=== PATIENT | male | born 1960 | race Caucasian/White ===

== ENCOUNTER 2016-05-23 14:46 | Emergency (ER) | payer OTHER ==
[~2016-05-23] VITALS: Ht 182.9 cm; Wt 130.1 kg
[~2016-05-23 14:46] MED LIST: ASPI81TA28 PO; CYCL10TA6 PO; CZR25 PO; EZET10TA63 PO; FLV1 PO; ISOS30TA3 PO; LSX20 PO; MAGN400T6 PO; MULT-506 PO; NTRGSL/4 UT; ROSU40TA PO; TRAM-10 PO
[2016-05-23 14:49] VITALS: TEMP 36.5; Ht 182.9 cm; Wt 130.1 kg
[2016-05-23 15:35] VITALS: O2SAT 97
[2016-05-23] MEDS ORDERED: METO50TA16 PO ×2 (15:42→17:11)
[2016-05-23] MEDS ORDERED: OMEG10007 PO (15:42)
[2016-05-23 15:47] LABS: BASO % 0.3 %; BASO ABS # 0.03 K/uL (0-0.2); COMPLETE YES; EOS % 1.7 %; HEMATOCRIT 42.8 % (42-52); IG% 0.2 %; LYMPH % 26.1 %; LYMPH ABS # 2.31 K/uL (1.2-3.4); MEAN CELL VOLUME 88.4 fL (80-100); MEAN CORPUSCULAR HEMOGLOBIN 31.2 pg (25-34); MEAN CORPUSCULAR HGB CONC 35.3 g/dl (32-36); MEAN PLATELET VOLUME 9.4 fL (7.4-10.4); MONO % 9.7 %; PLATELET COUNT 218 K/uL (130-400); RED BLOOD COUNT 4.84 M/uL (4.7-6.1); WHITE BLOOD COUNT 8.84 K/uL (4.8-10.8)
--- NOTE | 2016-05-23 15:51 | DIAGNOSTIC IMAGING REPORT ---
SINGLE VIEW CHEST CLINICAL HISTORY: Fever. Sepsis. FINDINGS: An AP, portable, upright chest radiograph is compared to study dated 09/28/2015 and correlated with chest CT dated 10/24/2010. The examination is degraded by portable technique and patient rotation. The patient is status post midline sternotomy and cardiac valve surgery. A 2-lead cardiac pacemaker is unchanged in position and partially obscures the left upper chest. The heart is enlarged and there is atherosclerotic calcification of the thoracic aorta. The pulmonary vasculature is noncongested. Chronic interstitial thickening is similar to previous. Foci of bibasilar atelectasis are identified. No airspace consolidation or pleural effusion is seen. No pneumothorax is identified. The skeletal structures are osteopenic. The bony thorax is grossly intact. IMPRESSION: 1. Cardiomegaly and cardiac pacemaker. There is no radiographic evidence of congestive failure. 2. No airspace consolidation or pleural effusion is seen. Electronically signed by: Tristian Briseno M.D. 05/23/2016 3:49 PM Dictated Date/Time: 05/23/2016 3:45 PM
[2016-05-23 15:59] LABS: PROTHROMBIN TIME (PATIENT) 10.9 SECONDS (9.0-12.0)
[2016-05-23 16:07] LABS: ALT/SGPT 43 U/L (12-78); BLOOD UREA NITROGEN 21 mg/dl (7-18); BUN/CREATININE RATIO 16.3 (10-20); CALCIUM 9.2 mg/dl (8.5-10.1); CARBON DIOXIDE 25 mmol/L (21-32); CHLORIDE 104 mmol/L (98-107); GLUCOSE 88 mg/dl (70-99); POTASSIUM 3.9 mmol/L (3.5-5.1); SODIUM 139 mmol/L (136-145)
[2016-05-23 16:17] LABS: ALKALINE PHOSPHATASE 77 U/L (45-117); AST/SGOT 23 U/L (15-37)
[2016-05-23] MEDS ORDERED: ULT50 PO (16:26)
[2016-05-23] MEDS ORDERED: EZET10TA66 PO (16:26)
[2016-05-23] MEDS ORDERED: ATOR-26 PO (16:27)
[2016-05-23] MEDS ORDERED: FURO-85 PO (16:28)
--- NOTE | 2016-05-23 17:52 | EMERGENCY ROOM VISIT NOTE ---
History Report prepared by Yaa: Orlando Chapman Under the Supervision of: Dr. Flavio Tucker D.O. First contact with patient: 15:05 Chief Complaint: IRREGULAR HEARTBEAT Stated Complaint: HEART RHYTHM/DISCOMFORT Nursing Triage Summary: "I have a pacemaker and I just don't feel good. I am having a little discomfort/tightness in the center of the chest." Per pt. Pain started at approx 10-1030am. Did not take anything History of Present Illness The patient is a 56 year old male with a history of CAD who presents to the Emergency Room with complaints of persistent chest discomfort since approximately [id number]. The patient emphasizes that he is not having chest pain , but rather a discomfort. He overall "doesn't feel right" today, and also has a headache. The patient denies any fevers. The patient's legs swell at baseline. He follows up with Dr. Luna, Catheter Builder. The patient has had a pacemaker since June. He had the pacemaker placed at [facility] for an AV block. The patient had a CABG x 1 in 2001. The patient has also been diagnosed with atrial flutter in the past. Source of History: patient Onset: [id number] Position: chest Quality: other (discomfort) Timing: other (persistent) Associated Symptoms: No fevers Review of Systems See HPI for pertinent positives & negatives. A total of 10 systems reviewed and were otherwise negative. Past Medical & Surgical Medical Problems: (1) Atrial flutter (2) Coronary artery disease (3) DVT (deep venous thrombosis) (4) Hx of atrial flutter (5) Hx of pulmonary embolus (6) Renal cell carcinoma Surgical Problems: (1) History of mitral valve repair (2) S/P ablation of atrial flutter (3) S/P CABG x 1 (4) Stented coronary artery Family History Cancer FH: ischemic heart disease Hypertension Social History Smoking Status: Never Smoker Alcohol Use: occasionally Marital Status: Housing Status: lives with family Occupation Status: employed Current/Historical Medications Scheduled Aspirin (Aspirin Ec), 81 MG PO DAILY Atorvastatin (Lipitor), 80 MG PO DAILY Ezetimibe (Ezetimibe), 10 MG PO HS Fish Oil (Dan[place]-3), 1 CAP PO BID Folic Acid (Folic Acid), 1 MG PO DAILY Furosemide (Lasix), 20 MG PO 5XWK Isosorbide Mononitrate Ext Rel (Imdur Ext Rel), 30 MG PO QAM Losartan Potassium (Losartan Potassium), 25 MG PO DAILY Magnesium Oxide (Mag-Ox), 400 MG PO BID Metoprolol Tartrate (Lopressor) (Lopressor), 25 MG PO QPM Metoprolol Tartrate (Lopressor) (Lopressor), 50 MG PO QAM Multivitamin (Multivitamin), 1 TAB PO DAILY Scheduled PRN Cyclobenzaprine Hcl (Flexeril), 10 MG PO HS PRN for Muscle Spasms Nitroglycerin (Nitrostat), 0.4 MG UT UD PRN for Chest Pain Tramadol HCl (Tramadol HCl), 50 MG PO Q8 PRN for Pain Allergies Coded Allergies: No Known Allergies (Verified , 07/01/15) Physical Exam Vital Signs Date Time Temp Pulse Resp B/P Pulse Ox O2 Delivery O2 Flow Rate FiO2 05/23/16 17:00 79 16 131/73 96 Room Air 05/23/16 15:35 97 Room Air 05/23/16 15:24 97 Room Air 05/23/16 15:07 83 05/23/16 14:49 36.5 85 18 156/102 97 Room Air Physical Exam CONSTITUTIONAL/VITAL SIGNS: Reviewed / noted above. GENERAL: Non-toxic in appearance. INTEGUMENTARY: Warm, dry, and Snyder. HEAD: Normocephalic. EYES: without scleral icterus or trauma. ENT/OROPHARYNX: clear and moist. LYMPHADENOPATHY/NECK: Is supple without lymphadenopathy or meningismus. RESPIRATORY: Lungs clear and equal. CARDIOVASCULAR: Regular rate and rhythm. GI/ABDOMEN: Soft and nontender. No organomegaly or pulsatile mass. No rebound or guarding. Normal bowel sounds. EXTREMITIES: Warm and well perfused. BACK: No CVA tenderness. NEUROLOGICAL: Intact without focal deficits. PSYCHIATRIC: normal affect. MUSCULOSKELETAL: Normally developed with good muscle tone. Medical Decision & Procedures ER Provider Diagnostic Interpretation: X ray results and stated below per my interpretation and radiology interpretation. SINGLE VIEW CHEST CLINICAL HISTORY: Fever. Sepsis. FINDINGS: An AP, portable, upright chest radiograph is compared to study dated 09/28/2015 and correlated with chest CT dated 10/24/2010. The examination is degraded by portable technique and patient rotation. The patient is status post midline sternotomy and cardiac valve surgery. A 2-lead cardiac pacemaker is unchanged in position and partially obscures the left upper chest. The heart is enlarged and there is atherosclerotic calcification of the thoracic aorta. The pulmonary vasculature is noncongested. Chronic interstitial thickening is similar to previous. Foci of bibasilar atelectasis are identified. No airspace consolidation or pleural effusion is seen. No pneumothorax is identified. The skeletal structures are osteopenic. The bony thorax is grossly intact. IMPRESSION: 1. Cardiomegaly and cardiac pacemaker. There is no radiographic evidence of congestive failure. 2. No airspace consolidation or pleural effusion is seen. Electronically signed by: Tristian Briseno M.D. 05/23/2016 3:49 PM Dictated Date/Time: 05/23/2016 3:45 PM Laboratory Results 05/23/16 15:35 Red Blood Count 4.84, Mean Corpuscular Volume 88.4, Mean Corpuscular Hemoglobin 31.2, Mean Corpuscular Hemoglobin Concent 35.3, Mean Platelet Volume 9.4, Neutrophils (%) (Auto) 62.0, Lymphocytes (%) (Auto) 26.1, Monocytes (%) (Auto) 9.7, Eosinophils (%) (Auto) 1.7, Basophils (%) (Auto) 0.3, Neutrophils # (Auto) 5.47, Lymphocytes # (Auto) 2.31, Monocytes # (Auto) 0.86, Eosinophils # (Auto) 0.15, Basophils # (Auto) 0.03 05/23/16 15:35 Test 05/23/16 15:35 White Blood Count 8.84 K/uL (4.8-10.8) Red Blood Count 4.84 M/uL (4.7-6.1) Hemoglobin 15.1 g/dL (14.0-18.0) Hematocrit 42.8 % (42-52) Mean Corpuscular Volume 88.4 fL (80-100) Mean Corpuscular Hemoglobin 31.2 pg (25-34) Mean Corpuscular Hemoglobin Concent 35.3 g/dl (32-36) Platelet Count 218 K/uL (130-400) Mean Platelet Volume 9.4 fL (7.4-10.4) Neutrophils (%) (Auto) 62.0 % Lymphocytes (%) (Auto) 26.1 % Monocytes (%) (Auto) 9.7 % Eosinophils (%) (Auto) 1.7 % Basophils (%) (Auto) 0.3 % Neutrophils # (Auto) 5.47 K/uL (1.4-6.5) Lymphocytes # (Auto) 2.31 K/uL (1.2-3.4) Monocytes # (Auto) 0.86 K/uL (0.11-0.59) Eosinophils # (Auto) 0.15 K/uL (0-0.5) Basophils # (Auto) 0.03 K/uL (0-0.2) RDW Standard Deviation 41.7 fL (36.4-46.3) RDW Coefficient of Variation 13.0 % (11.5-14.5) Immature Granulocyte % (Auto) 0.2 % Immature Granulocyte # (Auto) 0.02 K/uL (0.00-0.02) Prothrombin Time 10.9 SECONDS (9.0-12.0) Prothromb Time International Ratio 1.0 (0.9-1.1) Activated Partial Thromboplast Time 24.9 SECONDS (21.0-31.0) Partial Thromboplastin Ratio 1.0 Anion Gap 10.0 mmol/L (3-11) Est Creatinine Clear Calc Drug Dose 87.4 ml/min Estimated GFR () 70.2 Estimated GFR (Non- 60.6 BUN/Creatinine Ratio 16.3 (10-20) Calcium Level 9.2 mg/dl (8.5-10.1) Total Bilirubin 0.7 mg/dl (0.2-1) Direct Bilirubin 0.2 mg/dl (0-0.2) Aspartate Amino Transf (AST/SGOT) 23 U/L (15-37) Alanine Aminotransferase (ALT/SGPT) 43 U/L (12-78) Alkaline Phosphatase 77 U/L (45-117) Troponin I < 0.015 ng/ml (0-0.045) Total Protein 7.6 gm/dl (6.4-8.2) Albumin 3.6 gm/dl (3.4-5.0) Thyroid Stimulating Hormone (TSH) 1.180 uIu/ml (0.300-4.500) Laboratory results as stated above per my review. ECG Indication: chest pain Rate (beats per minute): 85 Rhythm: sinus rhythm Findings: 1st degree AV block, no acute ischemic change, no ectopy ED Course 1507: Previous medical records were reviewed. The patient was evaluated in room B10. A complete history and physical examination was performed. 1755: Reassessed the patient. Discussed the findings with him. He verbalized understanding and agreement. The patient is ready for discharge. Medical Decision the differential was considered includes acute myocardial infarction, acute coronary syndrome, myocarditis, pericarditis, pericardial effusions /tamponade, esophageal perforation, thoracic aortic dissection, pulmonary embolism, pneumonia, pneumothorax, pancreatitis, shingles, acute cholecystitis, perforated abdominal viscus. This is a 56-year-old male who presents to the ED with a chief complaint of the above. Physical exam reveals stable vital signs. Exam is otherwise unremarkable. EKG shows a sinus rhythm. No acute injury. Chest x-ray is negative for acute disease. Troponin is negative. TSH, complete metabolic panel and CBC are unremarkable. The patient was told results. He is felt to be stable for discharge and outpatient follow up. Impression Primary Impression: Precordial chest pain Additional Impression: Palpitations Scribe Attestation The scribe's documentation has been prepared under my direction and personally reviewed by me in its entirety. I confirm that the note above accurately reflects all work, treatment, procedures, and medical decision making performed by me. Departure Information Dispostion Home / Self-Care Referrals No Doctor, Assigned (PCP) Forms HOME CARE DOCUMENTATION FORM, IMPORTANT VISIT INFORMATION Patient Instructions My [facility] Additional Instructions Follow-up with your doctor for further care and evaluation in 1-2 days. Return to the emergency department for worsening or new symptoms or any concerns. You have been examined and treated today on an emergency basis only. This is not a substitute for, or an effort to provide, complete comprehensive medical care. It is impossible to recognize and treat all injuries or illnesses in a single emergency department visit. It is therefore important that you follow up closely with your doctor. Call as soon as possible for an appointment. Problem Qualifiers
[2016-05-23 18:11] VITALS: BP 122/72; PULSE 69; O2SAT 96
== END 2016-05-23 18:13 | disposition home or self-care (01) ==
LOC: C.EDB 14:47
DX: R07.2 Precordial pain (principal); R00.2 Palpitations; I44.0 Atrioventricular block, first degree; I25.10 Atherosclerotic heart disease of native coronary artery without angina pectoris; I48.92 Unspecified atrial flutter; Z86.711 Personal history of pulmonary embolism; Z86.718 Personal history of other venous thrombosis and embolism; Z85.528 Personal history of other malignant neoplasm of kidney; Z95.1 Presence of aortocoronary bypass graft; Z79.82 Long term (current) use of aspirin; Z79.899 Other long term (current) drug therapy; Z80.9 Family history of malignant neoplasm, unspecified; Z82.49 Family history of ischemic heart disease and other diseases of the circulatory system

== ENCOUNTER → 2017-02-07 | Outpatient (CLI) | payer OTHER ==
[~2017-02-07] MED LIST changes: +ATOR-26 PO; -EZET10TA63 PO; +EZET10TA66 PO; +FURO-85 PO; -LSX20 PO; +METO50TA16 PO; +OMEG10007 PO; -ROSU40TA PO; -TRAM-10 PO; +ULT50 PO
--- NOTE | 2017-02-07 15:41 | DIAGNOSTIC IMAGING REPORT ---
MRI OF THE LUMBAR SPINE WITHOUT IV CONTRAST CLINICAL HISTORY: Chronic low back pain. COMPARISON STUDY: MRI of the lumbar spine dated 09/28/2015. TECHNIQUE: MRI of the lumbar spine is performed utilizing various T1 and T2-weighted sequences in the axial and sagittal planes. IV contrast was not administered for this examination. FINDINGS: Lumbar spine: Vertebral body height and alignment are maintained throughout the lumbar spine. Marrow signal intensity is heterogeneous. There is straightening of the lumbar lordosis. The transverse and spinous processes are intact as visualized. There is no evidence of spondylolysis. No destructive bony lesion is seen. Anterior osteophytes are seen throughout. Advanced degenerative endplate sclerosis is noted at L3-L4. Additional chronic endplate changes are seen at most lumbar levels. Minimal degenerative endplate edema is noted at L2-L3. Intervertebral discs: Degenerative disc desiccation and loss of height is are seen throughout the lumbar spine. Loss of height is severe at L2-L3 and L3-L4. Spinal cord: The visualized spinal cord is normal in morphology and signal intensity. The conus medullaris terminates at the level of L1. Central canal: There is diffuse narrowing of the central canal, likely on a congenital basis. L1-L2: Facet arthropathy causes mild right neural foraminal stenosis. The central canal is patent. L2-L3: There is a small posterior disc bulge with annular fissure. In conjunction with hypertrophy of the ligamentum flavum, there is minimal acquired compromise of the central canal at this level. The minimum AP canal diameter measures 5.5 mm. This likely abuts the transiting nerve roots. The neural foramina are patent. L3-L4: There is a posterior disc bulge with annular fissure. There is moderate central canal stenosis at this level with a minimum AP diameter of 4.5 mm. This is largely on a congenital basis. The disc bulge is eccentric to the left and obliterates the left subarticular space. The disc likely impinges on the exiting bilateral L3 nerve roots as well as the transiting bilateral L4 nerve roots. There is tethering of the nerve roots of the cauda equina at this level. Facet arthropathy causes moderate left neural foraminal stenosis. L4-L5: There is minimal disc bulge. There is no significant acquired compromise of the central canal. There is congenital central canal narrowing at this level with a minimum AP diameter of 6.5 mm. There is mild bilateral subarticular stenosis. Facet arthropathy causes minimal bilateral neural foraminal stenosis. L5-S1: There is a small posterior disc bulge. There is no significant acquired compromise of the central canal. There is mild bilateral subarticular stenosis. Facet arthropathy causes minimal bilateral neural foraminal stenosis. Sacrum: The visualized sacrum is normal in morphology and signal intensity. Soft tissues: There is mild fatty atrophy of the paraspinous musculature. The partially imaged retroperitoneal structures are grossly normal but incomplete assessed. IMPRESSION: 1. Multilevel degenerative disc disease as above with chronic multilevel endplate change. This is greatest at L3-L4. 2. There is diffuse narrowing of the central canal, likely largely on a congenital basis. 3. There is multilevel acquired compromise of the central canal as detailed above. This is greatest at L3-L4. See discussion for detailed level by level analysis. Dictated: 02/07/2017 3:19 PM Transcribed: 02/07/2017 3:41 PM [facility] Electronically signed by: Tristian Briseno M.D. 02/07/2017 3:58 PM Dictated Date/Time: 02/07/2017 3:19 PM
== END | disposition home or self-care (01) ==
LOC: C.MRI 14:22
PROVIDERS: ATTEND Orthopaedic Surgery
DX: M51.17 Intervertebral disc disorders with radiculopathy, lumbosacral region (principal)

== ENCOUNTER 2017-04-10 14:00 | Observation (INO) | payer OTHER ==
[~2017-04-10] VITALS: Ht 182.9 cm; Wt 129.1 kg
[2017-04-10] MEDS ORDERED: ASPIRIN 81 MG CHEW PO STA (14:22)
[2017-04-10] MEDS ORDERED: DIGO30TA PO (14:22)
[2017-04-10] MEDS ORDERED: METO25TA56 PO (14:26)
[2017-04-10] MEDS ORDERED: TZCSR120 PO (14:26)
[2017-04-10] MEDS ORDERED: OXYC-57 PO (14:26)
[2017-04-10] MEDS ORDERED: APIX1TAB3 PO (14:26)
[2017-04-10] MEDS ORDERED: NITROGLYCERIN 0.4 MG SL PER TAB CHARGE SL PRN ×2 (14:30→17:00)
--- NOTE | 2017-04-10 14:42 | DIAGNOSTIC IMAGING REPORT ---
CHEST ONE VIEW PORTABLE CLINICAL HISTORY: Chest pain. COMPARISON STUDY: Chest radiograph May 23, 2016. FINDINGS: There are are median sternotomy wires and a prosthetic mitral valve. Cardiomegaly is unchanged. There is no evidence of pulmonary edema. No consolidation is evident. No pneumothorax or pleural effusion is noted. The appearance of the chest is unchanged. Minimal left basilar opacity is suggestive of atelectasis. IMPRESSION: No acute cardiopulmonary findings. No change in appearance of the chest. Electronically signed by: William Her M.D. 04/10/2017 2:41 PM Dictated Date/Time: 04/10/2017 2:40 PM
[2017-04-10 14:45] LABS: BASO % 0.4 %; BASO ABS # 0.04 K/uL (0-0.2); EOS % 3.6 %; HEMATOCRIT 44.6 % (42-52); HEMOGLOBIN 15.8 g/dL (14.0-18.0); IG# 0.03 K/uL (0.00-0.02); LYMPH % 30.4 %; LYMPH ABS # 3.35 K/uL (1.2-3.4); MEAN CELL VOLUME 89.2 fL (80-100); MEAN CORPUSCULAR HEMOGLOBIN 31.6 pg (25-34); MEAN CORPUSCULAR HGB CONC 35.4 g/dl (32-36); MEAN PLATELET VOLUME 9.5 fL (7.4-10.4); MONO % 8.5 %; MONO ABS # 0.94 K/uL (0.11-0.59); NEUT % 56.8 %; NEUT ABS # 6.26 K/uL (1.4-6.5); PLATELET COUNT 239 K/uL (130-400); RED CELL DISTRIBUTION WIDTH CV 13.5 % (11.5-14.5); WHITE BLOOD COUNT 11.02 K/uL (4.8-10.8)
[2017-04-10 14:56] LABS: BLOOD UREA NITROGEN 24 mg/dl (7-18); CALCIUM 9.3 mg/dl (8.5-10.1); CARBON DIOXIDE 28 mmol/L (21-32); GLUCOSE 99 mg/dl (70-99); POTASSIUM 3.7 mmol/L (3.5-5.1); SODIUM 134 mmol/L (136-145)
[2017-04-10 15:01] LABS: CKMB 2.3 ng/ml (0.5-3.6)
[2017-04-10] MEDS ORDERED: ONDANSETRON INJ 2 MG/ML 2 ML VIAL IV PRN (17:00)
[2017-04-10] MEDS ORDERED: ACETAMINOPHEN 325 MG TAB PO PRN (17:00)
[2017-04-10] MEDS ORDERED: OXYCODONE/ACETAMINOPHEN 5-325 TAB PO PRN (17:30)
[2017-04-10] MEDS ORDERED: CYCLOBENZAPRINE HCL 10 MG TAB PO PRN (17:30)
--- NOTE | 2017-04-10 17:30 | EMERGENCY ROOM VISIT NOTE ---
History Report prepared by Yaa: Amadeo Duran Under the Supervision of: Dr. Peter Martinez D.O. First contact with patient: 14:10 Chief Complaint: CARDIAC ASSESSMENT Stated Complaint: CHEST DISCOMFORT, HAS PACEMAKER Nursing Triage Summary: Substernal chest discomfort 2/10 for 1hour. " feels like my rythm is not normal. I have a pacemaker for heart block, and my heart feels like it is skipping beats." History of Present Illness The patient is a 57 year old male who presents to the Emergency Room with complaints of intermittent central chest discomfort that began an 1 hour ago. Patient rates the pain a 2/10 in severity. Patient admits to having a pacemaker due to AV block. He has a history of a mitral valve replacement, cardiac bypass , and cardiac ablation for A-flutter. He also complains of a headache, fatigue, and heart palpitations. Patient describes the palpitations as "feeling like my heart ain't beating right". His palpitations have been intermittent over the past hour associated with his chest pain. He denies shortness of breath, arm pain, jaw pain, cough, abdominal pain, nausea, vomiting, or diarrhea. The patient notes that he was started on Digoxin two weeks ago, and is starting Elquis soon. Source of History: patient Onset: 1 hour ago Position: chest (central) Symptom Intensity: 2/10 Timing: intermittent Associated Symptoms: + headache, + fatigue, No cough, No SOB, No nausea, No vomiting, No abdominal pain, No diarrhea Note: The patient denies arm pain, or jaw pain. Review of Systems See HPI for pertinent positives & negatives. A total of 10 systems reviewed and were otherwise negative. Past Medical & Surgical Medical Problems: (1) Atrial flutter (2) Coronary artery disease (3) DVT (deep venous thrombosis) (4) Hx of atrial flutter (5) Hx of pulmonary embolus (6) Renal cell carcinoma Surgical Problems: (1) History of mitral valve repair (2) S/P ablation of atrial flutter (3) S/P CABG x 1 (4) Stented coronary artery Family History Cancer FH: ischemic heart disease Hypertension Social History Smoking Status: Never Smoker Alcohol Use: occasionally Marital Status: Housing Status: lives with family Occupation Status: employed Current/Historical Medications Scheduled Aspirin (Aspirin Ec), 81 MG PO DAILY Atorvastatin (Lipitor), 80 MG PO DAILY Digoxin (Digitek), 0.125 MG PO DAILY Diltiazem HCl (Taztia Xt), 120 MG PO DAILY Ezetimibe (Ezetimibe), 10 MG PO HS Fish Oil (Rogers-3), 1 CAP PO BID Folic Acid (Folic Acid), 1 MG PO DAILY Furosemide (Lasix), 20 MG PO 5XWK Isosorbide Mononitrate Ext Rel (Imdur Ext Rel), 30 MG PO QAM Losartan Potassium (Losartan Potassium), 25 MG PO DAILY Magnesium Oxide (Mag-Ox), 400 MG PO BID Metoprolol Tartrate (Lopressor) (Lopressor), 25 MG PO BID Multivitamin (Multivitamin), 1 TAB PO DAILY Scheduled PRN Cyclobenzaprine Hcl (Flexeril), 10 MG PO HS PRN for Muscle Spasms Nitroglycerin (Nitrostat), 0.4 MG UT UD PRN for Chest Pain Oxycodone/Acetaminophen 5MG/325MG (Percocet 5MG/325MG), 1 TABLET PO Q6H PRN for Pain Allergies Coded Allergies: No Known Allergies (Verified , 04/10/17) Physical Exam Vital Signs Date Time Temp Pulse Resp B/P (MAP) Pulse Ox O2 Delivery O2 Flow Rate FiO2 04/10/17 17:00 77 22 95 04/10/17 16:45 77 9 95 04/10/17 16:30 79 14 93 04/10/17 16:15 76 0 93 04/10/17 16:02 106/63 04/10/17 16:00 78 18 95 04/10/17 15:45 80 14 92 04/10/17 15:30 78 3 95 04/10/17 15:15 78 9 93 04/10/17 15:02 113/76 04/10/17 15:02 79 12 113/76 92 Room Air 04/10/17 15:01 126/72 04/10/17 15:00 78 13 87 04/10/17 14:45 78 3 91 04/10/17 14:31 79 19 119/77 93 Room Air 04/10/17 14:31 119/77 04/10/17 14:30 79 96 04/10/17 14:24 79 04/10/17 14:21 96 Room Air 04/10/17 14:19 122/87 04/10/17 14:05 36.7 85 18 148/90 93 Room Air Physical Exam GENERAL: Sitting up in bed, alert, well appearing, well nourished, no distress, non-toxic EYE EXAM: normal conjunctiva. OROPHARYNX: no exudate, no erythema, lips, buccal mucosa, and tongue normal and mucous membranes are moist NECK: supple, no nuchal rigidity, no adenopathy, non-tender CHEST: Pacemaker in left upper chest wall. LUNGS: Clear to auscultation. Normal chest wall mechanics HEART: no murmurs, S1 normal and S2 normal ABDOMEN: abdomen soft, non-tender, normo-active bowel sounds, no masses, no rebound or guarding. BACK: Back is symmetrical on inspection and there is no deformity, no midline tenderness, no CVA tenderness. SKIN: no rashes and no bruising UPPER EXTREMITIES: upper extremities are grossly normal. LOWER EXTREMITIES: No pitting edema. Calves are equal bilaterally. NEURO EXAM: Normal sensorium, cranial nerves II-XII grossly intact, normal speech, no gross weakness of arms, no gross weakness of legs. Medical Decision & Procedures ER Provider Diagnostic Interpretation: Radiology results as stated below per my review and the radiologist's interpretation: CHEST ONE VIEW PORTABLE FINDINGS: There are are median sternotomy wires and a prosthetic mitral valve. Cardiomegaly is unchanged. There is no evidence of pulmonary edema. No consolidation is evident. No pneumothorax or pleural effusion is noted. The appearance of the chest is unchanged. Minimal left basilar opacity is suggestive of atelectasis. IMPRESSION: No acute cardiopulmonary findings. No change in appearance of the chest. Electronically signed by: William Her M.D. 04/10/2017 2:41 PM Laboratory Results 04/10/17 14:20 Red Blood Count 5.00, Mean Corpuscular Volume 89.2, Mean Corpuscular Hemoglobin 31.6, Mean Corpuscular Hemoglobin Concent 35.4, Mean Platelet Volume 9.5, Neutrophils (%) (Auto) 56.8, Lymphocytes (%) (Auto) 30.4, Monocytes (%) (Auto) 8.5, Eosinophils (%) (Auto) 3.6, Basophils (%) (Auto) 0.4, Neutrophils # (Auto) 6.26, Lymphocytes # (Auto) 3.35, Monocytes # (Auto) 0.94, Eosinophils # (Auto) 0.40, Basophils # (Auto) 0.04 04/10/17 14:20 Test 04/10/17 14:20 White Blood Count 11.02 K/uL (4.8-10.8) Red Blood Count 5.00 M/uL (4.7-6.1) Hemoglobin 15.8 g/dL (14.0-18.0) Hematocrit 44.6 % (42-52) Mean Corpuscular Volume 89.2 fL (80-100) Mean Corpuscular Hemoglobin 31.6 pg (25-34) Mean Corpuscular Hemoglobin Concent 35.4 g/dl (32-36) Platelet Count 239 K/uL (130-400) Mean Platelet Volume 9.5 fL (7.4-10.4) Neutrophils (%) (Auto) 56.8 % Lymphocytes (%) (Auto) 30.4 % Monocytes (%) (Auto) 8.5 % Eosinophils (%) (Auto) 3.6 % Basophils (%) (Auto) 0.4 % Neutrophils # (Auto) 6.26 K/uL (1.4-6.5) Lymphocytes # (Auto) 3.35 K/uL (1.2-3.4) Monocytes # (Auto) 0.94 K/uL (0.11-0.59) Eosinophils # (Auto) 0.40 K/uL (0-0.5) Basophils # (Auto) 0.04 K/uL (0-0.2) RDW Standard Deviation 44.0 fL (36.4-46.3) RDW Coefficient of Variation 13.5 % (11.5-14.5) Immature Granulocyte % (Auto) 0.3 % Immature Granulocyte # (Auto) 0.03 K/uL (0.00-0.02) Anion Gap 4.0 mmol/L (3-11) Est Creatinine Clear Calc Drug Dose 86.7 ml/min Estimated GFR () 69.7 Estimated GFR (Non- 60.1 BUN/Creatinine Ratio 18.4 (10-20) Calcium Level 9.3 mg/dl (8.5-10.1) Total Creatine Kinase 101 U/L (39-308) Creatine Kinase MB 2.3 ng/ml (0.5-3.6) Creatine Kinase MB Ratio 2.3 (0-3.0) Troponin I < 0.015 ng/ml (0-0.045) Digoxin Level 0.6 ng/ml (0.8-2.0) Laboratory results per my review. Medications Administered Medications (Trade) Dose Ordered Sig/Marco Antonio Route Start Time Stop Time Status Last Admin Dose Admin Aspirin (Aspirin Chew) 324 mg NOW STAT PO 04/10/17 14:22 04/10/17 14:23 DC 04/10/17 14:30 324 MG Nitroglycerin (Nitrostat Tab) 0.4 mg Q5M PRN SL 04/10/17 14:30 05/10/17 14:29 04/10/17 14:30 0.4 MG ECG Rate (beats per minute): 83 Rhythm: sinus rhythm, other (Atrial sensed, ventricular paced) Findings: T-wave inversion (Anterior), other (normal axis. ) ED Course ED COURSE: Vital signs were reviewed and showed hypertension. The patients medical record was reviewed The above diagnostic studies were performed and reviewed. ED treatments and interventions as stated above. 1411: The patient was evaluated in room A11B. A complete history and physical examination was performed. 1422: Ordered Aspirin Chew 324 mg PO. 1430: Ordered Nitrostat Tab 0.4 mg SL. 1555: Upon reevaluation, the patient is resting comfortably. I discussed my findings with the patient and he understands and agrees with the treatment plan. Based on the patients age, coexisting illnesses, exam and lab findings the decision to treat as an inpatient was made. The patient remained stable while under my care. The patient will be evaluated for further management. Medical Decision Differential diagnoses includes but is not limited to acute coronary syndrome, myocardial infarction, pericarditis, pulmonary embolus, aortic dissection, pneumonia, pneumothorax, musculoskeletal, shingles, esophageal. Patient is a 57-year-old male who presents to ER for palpitations associated with a chest tightness. 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 He was given nitroglycerin and had complete resolution of his symptoms. He was also given aspirin. Chest x-ray was unremarkable. Troponin was negative. EKG shows new flipped T waves in the anterior leads. Patient was updated bedside. He was admitted to internal medicine for chest pain associated with significant cardiac risk factors and a bypass. Medication Reconcilliation Current Medication List: was personally reviewed by me Blood Pressure Screening Patient's blood pressure: Normal blood pressure Blood pressure disposition: Did not require urgent referral Consults Time Called: 1550 Consulting Physician: Sveta Chung Returned Call: [phone] I reviewed the patient's case with Sveta URIOSTEGUI. Gary will evaluate the patient for further management. Impression Primary Impression: Chest pain Scribe Attestation The scribe's documentation has been prepared under my direction and personally reviewed by me in its entirety. I confirm that the note above accurately reflects all work, treatment, procedures, and medical decision making performed by me. Departure Information Dispostion Being Evaluated By Hospitalist Referrals Rachel Garcia M.D. (PCP) Patient Instructions My [facility] Problem Qualifiers Primary Impression: Chest pain Chest pain type: unspecified Qualified Codes: R07.9 - Chest pain, unspecified
[2017-04-10] MEDS ORDERED: IV FLUIDS COMPLETED PRN (18:00)
--- NOTE | 2017-04-10 18:10 | NUR ---
arrived from the ED via liter for admission to room 239-1, awake and alert, ambulated to bed, denies discomfort at this time, monitoring tech applied, admission nursing assessment complete, code word established, fall safety paper signed
[2017-04-10 18:25] VITALS: BP 139/88; PULSE 84; TEMP 36.6; O2SAT 92; Ht 182.9 cm; Wt 129.1 kg
[2017-04-10 19:02] VITALS: BP 131/81; PULSE 83; TEMP 36.7; O2SAT 94
--- NOTE | 2017-04-10 20:01 | History and Physical ---
History & Physical Date & Time of Service: Apr 10, 2017 ~ 16:30 Chief Complaint: Chest Pain Primary Care Physician: Rachel Garcia M.D. History of Present Illness 57 year old male who presents to the ED with chest pain. Patient has history of atrial arrhythmias as described below. He was recently seen in the cardiology clinic for complaints of exertional shortness of breath and fatigue. He underwent a pacemaker interrogation that showed an approximate 2% atrial fibrillation burden. Unfortunately patient has not tolerated higher doses of beta ken and is fairly symptomatic when he is atrial fibrillation. It was decided to start the patient on digoxin. Anticoagulation with Eliquis was also discussed however is on hold until patient completes injections he is receiving in his back. Patient reports that today while sitting at this desk he developed palpitations and mid sternal chest discomfort. He rates the pain ~ 2/10. He denies any radiation of the pain. He took his pulse and reports it was not fast however it was irregular. Symptoms lasted for about one hour. He reports improvement once receiving SL nitro in the ED. He had associated shortness of breath and nausea. He denies lightheadedness, syncope, or diaphoresis. Patient reports this is first episode he has had since his recent visit in the cardiology clinic. He denies recent illnesses, fever, or chills. No abdominal pain, vomiting, or diarrhea. He denies urinary symptoms. In the ED, patient's EKG demonstrates paced rhythm and initial troponin is negative. Vitals are stable. Past Medical/Surgical History Medical Problems: (1) Atrial flutter Permanent Comment: s/p ablation October 2010, June 2012 Status: Chronic (2) Atrial tachycardia Permanent Comment: s/p ablation 2006 Status: Chronic (3) AV node dysfunction Status: Chronic (4) CAD (coronary artery disease) Status: Chronic (5) DVT (deep venous thrombosis) Status: Chronic (6) History of nephrectomy, unilateral Status: Chronic (7) MTHFR mutation Status: Chronic (8) Pacemaker Status: Chronic (9) Paroxysmal A-fib Status: Chronic (10) Prinzmetal angina Status: Chronic (11) Pulmonary embolism Status: Chronic (12) Renal cell carcinoma Status: Chronic Surgical Problems: (1) Hx of cardiac cath Permanent Comment: May 2014 - moderate non obstructive disease Status: Chronic (2) Hx of mitral valve repair Status: Chronic (3) S/P CABG x 1 Status: Chronic (4) S/P right coronary artery (RCA) stent placement Permanent Comment: for occluded graft from CABG Status: Chronic Family History FH: ischemic heart disease FATHER (fatal [place] at age 35) BROTHER (CABG in his 40s) Social History Smoking Status: Never Smoker Alcohol Use: occasionally Marital Status: Housing status: lives with family Occupational Status: employed Immunizations History of Influenza Vaccine: Yes Influenza Vaccine Date: Feb 25, 2017 History of Tetanus Vaccine?: Yes Tetanus Immunization Date: Oct 25, 2008 History of Pneumococcal: Yes Pneumococcal Date: Mar 29, 2006 History of Hepatitis B Vaccine: Yes Hepatitis Immunization Date: Jul 22, 2000 Multi-Drug Resistant Organisms History of MDRO: No Allergies Coded Allergies: No Known Allergies (Verified , 04/10/17) Home Medications Scheduled Aspirin (Aspirin Ec), 81 MG PO DAILY Atorvastatin (Lipitor), 80 MG PO DAILY Digoxin (Digitek), 0.125 MG PO DAILY Diltiazem HCl (Taztia Xt), 120 MG PO DAILY Ezetimibe (Ezetimibe), 10 MG PO HS Fish Oil ([place]-3), 1 CAP PO BID Folic Acid (Folic Acid), 1 MG PO DAILY Furosemide (Lasix), 20 MG PO 5XWK Isosorbide Mononitrate Ext Rel (Imdur Ext Rel), 30 MG PO QAM Losartan Potassium (Losartan Potassium), 25 MG PO DAILY Magnesium Oxide (Mag-Ox), 400 MG PO BID Metoprolol Tartrate (Lopressor) (Lopressor), 25 MG PO BID Multivitamin (Multivitamin), 1 TAB PO DAILY Scheduled PRN Cyclobenzaprine Hcl (Flexeril), 10 MG PO HS PRN for Muscle Spasms Nitroglycerin (Nitrostat), 0.4 MG UT UD PRN for Chest Pain Oxycodone/Acetaminophen 5MG/325MG (Percocet 5MG/325MG), 1 TABLET PO Q6H PRN for Pain Review of Systems ROS per HPI, all other systems reviewed and negative Physical Exam Vital Signs Date Time Temp Pulse Resp B/P (MAP) Pulse Ox O2 Delivery O2 Flow Rate FiO2 04/10/17 19:02 36.7 83 16 131/81 (98) 94 Room Air 04/10/17 18:25 36.6 84 20 139/88 92 Room Air 04/10/17 18:01 88 18 124/81 04/10/17 17:00 77 22 95 04/10/17 16:45 77 9 95 04/10/17 16:30 79 14 93 04/10/17 16:15 76 0 93 04/10/17 16:02 106/63 04/10/17 16:00 78 18 95 04/10/17 15:45 80 14 92 04/10/17 15:30 78 3 95 04/10/17 15:15 78 9 93 04/10/17 15:02 113/76 04/10/17 15:02 79 12 113/76 92 Room Air 04/10/17 15:01 126/72 04/10/17 15:00 78 13 87 04/10/17 14:45 78 3 91 04/10/17 14:31 79 19 119/77 93 Room Air 04/10/17 14:31 119/77 04/10/17 14:30 79 96 04/10/17 14:24 79 04/10/17 14:21 96 Room Air 04/10/17 14:19 122/87 04/10/17 14:05 36.7 85 18 148/90 93 Room Air General Appearance: WD/WN, no apparent distress Head: normocephalic, atraumatic Eyes: normal inspection, EOMI, sclerae normal ENT: hearing grossly normal, + pertinent finding (mucous membranes moist) Neck: supple, no JVD, trachea midline Respiratory/Chest: lungs clear, normal breath sounds, no respiratory distress Cardiovascular: regular rate, rhythm, no edema, normal peripheral pulses, + pertinent finding (+1 edema BLLE) Abdomen/GI: normal bowel sounds, non tender, soft, no organomegaly Extremities/Musculoskelatal: normal inspection, no calf tenderness, normal capillary refill Neurologic/Psych: no motor/sensory deficits, alert, normal mood/affect, oriented x 3 Skin: normal color, warm/dry Diagnostics Laboratory Results Results Past 24 Hours Test 04/10/17 14:20 Range/Units White Blood Count 11.02 4.8-10.8 K/uL Red Blood Count 5.00 4.7-6.1 M/uL Hemoglobin 15.8 14.0-18.0 g/dL Hematocrit 44.6 42-52 % Mean Corpuscular Volume 89.2 80-100 fL Mean Corpuscular Hemoglobin 31.6 25-34 pg Mean Corpuscular Hemoglobin Concent 35.4 32-36 g/dl Platelet Count 239 130-400 K/uL Mean Platelet Volume 9.5 7.4-10.4 fL Neutrophils (%) (Auto) 56.8 % Lymphocytes (%) (Auto) 30.4 % Monocytes (%) (Auto) 8.5 % Eosinophils (%) (Auto) 3.6 % Basophils (%) (Auto) 0.4 % Neutrophils # (Auto) 6.26 1.4-6.5 K/uL Lymphocytes # (Auto) 3.35 1.2-3.4 K/uL Monocytes # (Auto) 0.94 0.11-0.59 K/uL Eosinophils # (Auto) 0.40 0-0.5 K/uL Basophils # (Auto) 0.04 0-0.2 K/uL RDW Standard Deviation 44.0 36.4-46.3 fL RDW Coefficient of Variation 13.5 11.5-14.5 % Immature Granulocyte % (Auto) 0.3 % Immature Granulocyte # (Auto) 0.03 0.00-0.02 K/uL Sodium Level 134 136-145 mmol/L Potassium Level 3.7 3.5-5.1 mmol/L Chloride Level 102 98-107 mmol/L Carbon Dioxide Level 28 21-32 mmol/L Anion Gap 4.0 3-11 mmol/L Blood Urea Nitrogen 24 7-18 mg/dl Creatinine 1.30 0.60-1.40 mg/dl Est Creatinine Clear Calc Drug Dose 86.7 ml/min Estimated GFR () 69.7 Estimated GFR (Non- 60.1 BUN/Creatinine Ratio 18.4 10-20 Random Glucose 99 70-99 mg/dl Calcium Level 9.3 8.5-10.1 mg/dl Magnesium Level 2.1 1.8-2.4 mg/dl Total Creatine Kinase 101 39-308 U/L Creatine Kinase MB 2.3 0.5-3.6 ng/ml Creatine Kinase MB Ratio 2.3 0-3.0 Troponin I < 0.015 0-0.045 ng/ml Digoxin Level 0.6 0.8-2.0 ng/ml Diagnostic Radiology CXR IMPRESSION: No acute cardiopulmonary findings. No change in appearance of the chest. Impression Assessment and Plan CHEST PAIN, PALPITATIONS HX ATRIAL ARRHYTHMIAS, AV NODE DYSFUNCTION S/P PACEMAKER CAD - admit to tele - patient presenting with chest pain and palpitations that developed while sitting at work - recent cardiology clinic visit for complaints of exertional shortness of breath and fatigue. He underwent a pacemaker interrogation that showed an approximate 2% atrial fibrillation burden. Unfortunately patient has not tolerated higher doses of beta ken and is fairly symptomatic when he is atrial fibrillation. It was decided to start the patient on digoxin. Anticoagulation with Eliquis was also discussed however is on hold until patient completes injections he is receiving in his back. - EKG currently demonstrates paced rhythm, initial troponin negative - suspect patient was experiencing an atrial arrhythmia; will obtain pace maker integration - hx of atrial arrhythmias in the past s/p ablation - per Dr. Luna's clinic note several therapies are being considered: initiation of antiarrhythmic therapy, ablation, cardioversion - will continue to cycle cardiac enzymes, check resting echo - noted negative Lexiscan 05/2016, preserved LVEF - cardiac cath 05/2014 - moderate non obstructive disease - for now continue patient's home regimen: digoxin, metoprolol, diltiazem, isosorbide, losartan, ezetimibe, atorvastatin, ASA - cardiology consult DVT PROPHYLAXIS - SQ Lovenox DISPO - The patient will be placed as observation status for now until further work up is complete. ADDENDUM: This is a 57 year old male with a PMH of multiple arrhythmias and AV joanie ablations multiple times and s/p pacemaker; He developed palpitations and some chest pressure. Was seen by cardiology a few weeks back and digoxin was started. Plan is to cycle cardiac enzymes, repeat EKG, check a resting echo. pacemaker interrogation check TSH monitor electrolytes cardiology consulted for further input Advanced Directives Existing Living Will: No Existing Power of Film And Video Editor: No VTE Prophylaxis VTE Risk Assessment Done? Y/N: Yes Risk Level: Moderate
[2017-04-10] MEDS: OMEGA-3 (PURIFIED FISH OIL) 1 GM CAP PO SCH (20:05)
[2017-04-10] MEDS: METOPROLOL TARTRATE 25 MG TAB PO SCH (20:06)
[2017-04-10] MEDS: MAGNESIUM OXIDE 400 MG TAB PO SCH (20:06)
[2017-04-10 20:28] LABS: PTT PATIENT 24.8 SECONDS (21.0-31.0)
[2017-04-10 20:47] LABS: CKMB 1.6 ng/ml (0.5-3.6)
[2017-04-10] MEDS ORDERED: ENOXAPARIN 40 MG/0.4 ML SYR SQ SCH (21:00)
[2017-04-10] MEDS ORDERED: EZETIMIBE 10MG TAB PO SCH (21:00)
[2017-04-10 23:05] VITALS: BP 102/66; PULSE 72; TEMP 36.8; O2SAT 94
--- NOTE | 2017-04-11 00:01 | NUR ---
A: No change from previous assessment, see Interventions. Call wagner in reach.
[2017-04-11 02:38] LABS: CKMB 1.9 ng/ml (0.5-3.6)
[2017-04-11 03:05] VITALS: BP 118/75; PULSE 73; TEMP 36.6; O2SAT 93
--- NOTE | 2017-04-11 04:00 | NUR ---
A: Patient resting through the night, voiced no complaints of chest pain. Call wagner in reach.
[2017-04-11 07:31] VITALS: BP 116/74; TEMP 36.8; O2SAT 95
--- NOTE | 2017-04-11 08:00 | NUR ---
A: Resting quietly and comfortably. Denies pain/discomfort. Paced on the monitor. Trace BLE edema. Lung sounds are clear throughout. Denies SOB. +BS. Voiding without difficulty. No evidence of skin breakdown. Ambulates independently in the room. Gait is steady. See EMR for complete assessment details. Call wagner is within reach. Will continue to monitor.
[2017-04-11] MEDS: METOPROLOL TARTRATE 25 MG TAB PO SCH (08:25)
[2017-04-11] MEDS: MAGNESIUM OXIDE 400 MG TAB PO SCH (08:25)
[2017-04-11] MEDS: OMEGA-3 (PURIFIED FISH OIL) 1 GM CAP PO SCH (08:25)
[2017-04-11] MEDS ORDERED: ATORVASTATIN 40 MG TAB PO SCH (09:00)
[2017-04-11] MEDS ORDERED: ISOSORBIDE MONONITRATE 30 MG TABCR PO SCH (09:00)
[2017-04-11] MEDS ORDERED: ASPIRIN 81 MG ECTAB PO SCH (09:00)
[2017-04-11] MEDS ORDERED: DILTIAZEM HCL 120 MG EXT REL CAP PO SCH (09:00)
[2017-04-11] MEDS ORDERED: LOSARTAN POTASSIUM 25 MG TAB PO SCH (09:00)
[2017-04-11] MEDS ORDERED: MULTIVITAMIN TAB PO SCH (09:00)
--- NOTE | 2017-04-11 10:07 | Cardiology Consultation ---
Cardiology Consultation Date of Service Apr 11, 2017. (Yaz Lowe PA-C) Cardiology Consultation Requesting Provider: MOODY Gibson Attending Poultry Killer: Dr. Chatterjee HPI: The patient is a complex 57-year-old male with complex past history, known to [facility] cardiology service and follows with Dr. Luna and Dr. Shore. History includes CAD s/p prior RCA graft with mitral valve repair in 2001, BMS placement to the RCA in 2001 for occluded graft, repeat cath in 2008 with 40% mid LAD and patent RCA stent, and repeat cath in 2014 with moderate non obstructive CAD, stable from 2008. He reports having coronary vasospasm during cardiac cath and takes isosorbide for symptoms. He had a negative nuclear stress test in 05/2016 at [facility]. Other history significant for symptomatic atrial arrhythmias, s/p several ablations for atrial tach in 2006, atrial flutter in 2010 and 2012. He has recurrent symptomatic atrial fibrillation, as noted on device interrogations. He has been intolerant of higher dose beta ken therapy. He remains also on diltiazem and digoxin recently added for symptoms. He has been prescribed Eliquis for anticoagulation, however he has been having spinal injections and has not started therapy as of this time. He states he was in normal state of health yesterday AM, was sitting at computer and developed substernal chest tightness. No radiation. He noted associated fluttering and "skipped beats" with mild dizziness. He denies associated dyspnea, syncope or near syncope. He drove himself to ER and upon arrival was treated with 1 SL nitro with improvement in his symptoms. EKG demonstrated ventricular paced rhythm with T wave inversions in anterior/ lateral leads, mildly worse compared to outpatient EKG in 05/2016. Pacemaker interrogation demonstrated appropriate function. no arrhythmias during time of symptoms. Cardiac enzymes unremarkable x3 since admission. Chest xray without acute findings. Other labs unremarkable. At time of consult, patient noted discomfort in back due to bed (chronic issue) . No recurrent chest pain, palpitations, dizziness. No orthopnea, PND or worsening LE edema. No SOB. No fever, cough, chills. Patient also reports having episode of dyspnea several weeks ago after climbing several flights of stairs. Symptoms resolved in a few minutes but this was unusual for him. No chest pain reported at the time. He does report exercising regularly on the treadmill. Review of Systems: See HPI for pertinent positives. All other 10 point review of systems is negative. PMH: 1. History of past Prinzmetal angina pectoris. 2. Surgical mitral valve repair 2001 for severe mitral insufficiency and associated right coronary grafting. 3. Status post bare metal stent to the right coronary artery 2001 for occluded graft. 4. Repeat diagnostic cardiac catheterization May 2014 demonstrating moderate coronary atherosclerosis, no obstructive disease. 5. Paroxysmal atrial arrhythmias including atrial tachycardia status post ablation in 2006, paroxysmal atrial flutter status post ablation October of 2010, June of 2012. 6. History of underlying AV conduction system disease. 7. History of past paroxysmal atrial fibrillation. 8. Past renal cell carcinoma status post right nephrectomy. 9. Past pulmonary embolus and DVT. 10. Past MTHFR positive mutation. Surgical History: Laser retina treatment - left eye laser treatment of retinal lattice-left eye REPAIR OF NASAL SEPTUM 2000 REMOVAL OF KIDNEY - Right 03/23 RECONSTRUCT MITRAL VALVE W/RING 06/21 PLACE INTRACORONARY STENT, FIRST VS 02/21 Spinal injections 2016 INSERT/REPLACE PACEMAKER,ATRIAL/VENTRICULAR 06/24/2015 ELECTROPHYSIOLOGY EVAL & ABLATE SVT 06/23/2012 CORONARY ARTERY BYPASS, SINGLE 06/21 CORONARY ANGIOGRAPHY W/LEFT HEART CATH 09/22/2010 CARDIAC CATH SCANNED RESULT 10/19/08 40% mid LAD with widely patent RCA stent. ABLATE HEART DYSRHYTHM FOCUS 05/29 ABLATE HEART DYSRHYTHM FOCUS 10/20/2010 Family history: Positive for premature coronary artery disease - Father age 35 of [place], brother [place] age 46. Social History: No prior tobacco abuse. + Alcohol, sev drinks daily. . Retired [employer]. Teaches at [employer] Allergies: No Known Drug Allergy MEDICATIONS: Reported Home Medications Medications Dose Route/Sig Max Daily Dose Days Date Category Dose Instructions Lopressor (Metoprolol Tartrate) 25 Mg Tab 25 Mg PO BID 04/10/17 Reported Percocet 5MG/325MG (Oxycodone/Acetaminophen) Tab 1 Tablet PO Q6H PRN 04/10/17 Reported PAIN Taztia Xt (Diltiazem HCl) 120 Mg Capcr 120 Mg PO DAILY 04/10/17 Reported Digitek (Digoxin) 0.125 Mg Tab 0.125 Mg PO DAILY 04/10/17 Reported Lasix (Furosemide) 20 Mg Tab 20 Mg PO 5XWK 05/23/16 Reported Lipitor (Atorvastatin Calcium) 80 Mg Tab 80 Mg PO DAILY 05/23/16 Reported Ezetimibe 10 Mg Tab 10 Mg PO HS 05/23/16 Reported Multivitamin (Multivitamins) Tab 1 Tab PO DAILY 06/03/14 Reported Folic Acid 1 Mg Tab 1 Mg PO DAILY 06/03/14 Reported Flexeril (Cyclobenzaprine Hcl) 10 Mg Tab 10 Mg PO HS PRN 03/07/14 Reported Aspirin Ec (Aspirin) 81 Mg Tab 81 Mg PO DAILY 03/07/14 Reported Losartan Potassium 25 Mg Tab 25 Mg PO DAILY 03/07/14 Reported Imdur Ext Rel (Isosorbide Mononitrate) 30 Mg Ertab 30 Mg PO QAM 01/24/09 Reported Nitrostat (Nitroglycerin) 0.4 Mg Tab 0.4 Mg UT UD PRN 01/25/09 Reported Mag-Ox (Magnesium Oxide) 400 Mg Tab 400 Mg PO BID 01/24/09 Reported [place]-3 (Fish Oil) 1 Ea Cap 1 Cap PO BID 01/24/09 Reported PHYSICAL EXAMINATION: Last 8 Hrs Date Time Temp Pulse Resp B/P (MAP) Pulse Ox O2 Delivery O2 Flow Rate FiO2 04/11/17 07:31 36.8 20 116/74 (88) 95 Room Air 04/11/17 04:00 Room Air 04/11/17 03:05 36.6 73 18 118/75 (89) 93 Room Air GEN: A+Ox3. NAD HEENT exam is normocephalic and atraumatic. Nares without discharge. Throat was clear. Neck was supple without thyromegaly, lymphadenopathy, JVD. There are no carotid bruits. Lungs are clear to auscultation. Cardiovascular exam is regular. There is no audible murmur or rub. Abdomen was soft, nontender. Extremities without cyanosis or clubbing. There is 1 to 2+ lower extremity edema. Pacemaker site is without irritation. DATA: EKG on admission: Atrial-sensed ventricular-paced rhythm with prolonged AV conduction T Wave inversions in anterior leads Repeat EKG this AM: Atrial-sensed ventricular-paced rhythm with prolonged AV conduction T wave inversions resolved. chest xray on admission: IMPRESSION: No acute cardiopulmonary findings. No change in appearance of the chest. Device interrogation this AM demonstrates: Appropriate battery longevity of 6.5 years, A Paced 1%, V Paced 75%. 26 episodes of AT/AF since last interrogation in Feb 2017. Longest lasting 6 hours on 03/10. Most recent episode occurred on 04/09 lasting 2 hours and 23 minutes. No arrhythmias noted during time of symptoms on 04/10. Outpatient records reviewed - Nuclear stress test report dated 06/15/16 demonstrated: Interpretation Summary Myocardial perfusion imaging is normal. Overall left ventricular systolic function was normal without regional wall motion abnormalities. The left ventricular ejection fraction was >70%. There are no prior studies available for comparison. Prior exercise stress echo reviewed, from 2016 at [facility]: Interpretation Summary The left ventricle is normal in size. STRESS STUDY: Normal exercise stress echocardiogram. No echocardiographic evidence of myocardial ischemia having achieved heart rate adequate for diagnostic purposes. Transient atrial tachycardia noted at peak stress, then transient ventricular pacing (appropriate pacer tracking). Patient's presenting chest pain symptoms were not reproduced. RESTING STUDY: Stable MV repair. The LV Ejection Fraction = 55-60%. IMPRESSION: 57-year-old male with complex cardiac history 1. chest tightness associated with palpitations yesterday, lasting about 1 hour. Resolved with 1 SL nitro in ER. Cardiac enzymes unremarkable. EKG with ventricular pacing and T wave inversions in anterior leads. No recurrent symptoms since admission 2. T wave inversions noted anterior leads on admission, resolved. Negative cardiac enzymes 3. Paroxysmal atrial fibrillation, currently NSR and ventricular pacing. No arrhythmias correlated to symptoms on device interrogation. continue digoxin, metoprolol, diltiazem. not currently on Eliquis due to repeat spinal injections. To start in April after last injection 4. Coronary artery disease s/p RCA stent in 2002, patent stent with moderate non obstructive disease per cath in 2014. Negative nuclear stress test in 2016. 5. History of Prinzmetal angina - on isosorbide 6. History of mitral valve repair 7. History of atrial arrhythmias s/p SVT ablation and flutter ablation - follows with Dr. Shore PLAN: Options discussed. etiology of chest pain includes unstable angina vs coronary vasospasm. Cardiac enzymes unremarkable. Await echo report. If echo demonstrates normal LV function, plan outpatient ischemic work up with 2D nuclear stress test. He is unable to walk on a treadmill due to ongoing back pain/spinal issues. Dobutamine contraindicated due to frequent atrial arrhythmias. Will plan to increase isosorbide to 60 mg on discharge to aid with symptoms Patient also requesting refills for new SL nitro tabs on discharge. Further recommendations pending review of echocardiogram. Case discussed with Dr. Chatterjee. (Yaz Lowe PA-C) Cardiology attending: Pt seen and examined, agree with findings and assessment as per Yaz Stokes. No objective finding of ischemia except for transient T wave changes on EKG. Pt does have a documented hx of coronary vasospasm. Given that pain occurred at rest, echo shows no new wall motion abnormalities and hx of vasospasm will treat for vasospasm now. Will also perform outpatient Nuclear stress. Pt anxious for discharge to travel for holidays and will require 2 day protocol. Pt agrees with plan. Ok to d/c to home. (Nathan Chatterjee, D.O.)
[2017-04-11] MEDS ORDERED: ISOSORBIDE MONONITRATE 60 MG TABCR PO ONE (11:00)
[2017-04-11 11:05] VITALS: BP 126/77; TEMP 36.8; O2SAT 96
--- NOTE | 2017-04-11 11:36 | ECHOCARDIOGRAM REPORT ---
*NOTICE TO RECEIVING LIBERTARIAN AGENCY This information is strictly Confidential and protected under [place] law. [place] law prohibits you from making any further disclosure of this information unless further disclosure is expressly permitted by the written consent of the person to whom it pertains or is authorized by law. A general authorization for the release of medical or other information is not sufficient for this purpose. Hospital accepts no responsibility if the information is made available to any other person, INCLUDING THE PATIENT. Interpretation Summary * Name: CHI EVANS Study Date: 04/11/2017 09:43 AM BP: 118/75 mmHg * Patient Location: C.2T\S\S239\S\1 HR: 73 * : 1960 (M/d/yyyy) Gender: Male Height: 72 in * Age: 57 yrs Ethnicity: CA Weight: 288 lb * Ordering Physician: Sveta Malik * Referring Physician: UNKNOWN * Performed By: Archana Salinas RCS * * Reason For Study: Chest Pain * BSA: 2.5 m2 * -- Conclusions -- * No significant change compared to previous study of 07/01/15. * Normal LV chamber size with mild concentric LVH. * Normal LV systolic function, EF 55-60%. * No segmental left ventricular wall motion abnormalities are noted. * Grade I diastolic dysfunction. * No significant valvular pathology. * Mild left atrial enlargement. Procedure Details * A complete two-dimensional transthoracic echocardiogram was performed (2D, M-mode, Doppler and color flow Doppler). * A contrast injection of Definity was performed to improve assessment of LV function. * Contrast was injected into an intravenous site in the right arm. * One vial of Definity ultrasound contrast was diluted in normal saline to a total volume of 10 ml. A total of '1' ml of solution was administered during imaging. * Lot # [id number] of Definity utilized for procedure. * Expiration date . * The attending nurse who injected the contrast agent was Antonia Hoang RN. Left Ventricle * The left ventricle is normal in size. * There is mild concentric left ventricular hypertrophy. * Ejection Fraction = 55-60%. * Left ventricular systolic function is normal. * No segmental left ventricular wall motion abnormalities are noted. * The left ventricular wall motion is normal. Right Ventricle * The right ventricular cavity size is normal (basal dimension <4.2 cm in right ventricular apical 4-chamber view). * There is a pacemaker lead in the right ventricle. * The right ventricular systolic function is normal as assessed by tricuspid annular plane systolic excursion (TAPSE) (normal >1.5 cm). Atria * The left atrium is mildly dilated. * Right atrial size is normal. * No ASD detected; PFO is not assessed. Mitral Valve * The mitral valve is normal in structure and function. Tricuspid Valve * The tricuspid valve is normal in structure and function. Aortic Valve * The aortic valve is not well visualized. * No hemodynamically significant valvular aortic stenosis. * There is no significant aortic regurgitation. Pulmonic Valve * The pulmonary valve is not well seen, but the Doppler examination is normal without significant regurgitation or stenosis. Great Vessels * The aortic root is normal size. Pericardium/Pleural * There is no pericardial effusion. Left Ventricular Diastolic Function * Grade I diastolic dysfunction, (abnormal relaxation pattern). MMode 2D Measurements and Calculations IVSd 1.1 cm IVSs 1.4 cm LVIDd 5.1 cm LVIDs 3.8 cm LVPWd 1.1 cm LVPWs 1.4 cm IVS/LVPW 1.0 FS 26.2 % EDV(Teich) 125.7 ml ESV(Teich) 61.6 ml EF(Teich) 51.0 % EDV(cubed) 135.2 ml ESV(cubed) 54.5 ml EF(cubed) 59.7 % % IVS thick 24.0 % % LVPW thick 28.2 % LV mass(C)d 211.4 grams LV mass(C)dI 85.0 grams/m\S\2 LV mass(C)s 185.7 grams LV mass(C)sI 74.6 grams/m\S\2 SV(Teich) 64.1 ml SI(Teich) 25.8 ml/m\S\2 SV(cubed) 80.8 ml SI(cubed) 32.5 ml/m\S\2 Ao root diam 3.1 cm Ao root area 7.8 cm\S\2 ACS 2.2 cm LA dimension 4.3 cm asc Aorta Diam 3.3 cm LA/Ao 1.4 EDV(MOD-sp4) 120.7 ml ESV(MOD-sp4) 59.1 ml EF(MOD-sp4) 51.1 % EDV(MOD-sp2) 143.7 ml ESV(MOD-sp2) 59.6 ml EF(MOD-sp2) 58.6 % SV(MOD-sp4) 61.6 ml SI(MOD-sp4) 24.8 ml/m\S\2 SV(MOD-sp2) 84.2 ml SI(MOD-sp2) 33.8 ml/m\S\2 Doppler Measurements and Calculations MV A max benitez 158.7 cm/sec PA V2 max 78.5 cm/sec PA max PG 2.5 mmHg TR max benitez 222.2 cm/sec
--- NOTE | 2017-04-11 12:00 | NUR ---
A: Resting quietly. Offers no complaints at this time. ECHO WNL per Dr. Chatterjee. Dr. Sena notified of Hand Brush Filler's recommendations for discharge. See EMR for assessment details. Call wagner is within reach. Will continue to monitor.
--- NOTE | 2017-04-11 12:38 | Progress Note ---
Subjective Date of Service: Apr 11, 2017. Subjective Pt evaluation today including: conversation w/ patient, physical exam, lab review, review of studies, review of inpatient medication list Saw/examined the patient in room 239 Doing well, no problems/issues to note No chest pain/shortness of breath/palpitations Problem List Medical Problems: (1) Precordial chest pain Status: Acute (2) Substernal chest pain Status: Acute Review of Systems Respiratory: No cough, No sputum, No wheezing, No shortness of breath, No dyspnea on exertion, No dyspnea at rest Cardiac: No chest pain, No edema, No palpitations Medications Current Inpatient Medications Medications (Trade) Dose Ordered Sig/Marco [place] Route Start Time Stop Time Status Last Admin Dose Admin Acetaminophen (Tylenol Tab) 650 mg Q4H PRN PO 04/10/17 17:00 05/10/17 16:59 Ondansetron HCl (Zofran Inj) 4 mg Q6H PRN IV 04/10/17 17:00 05/10/17 16:59 Nitroglycerin (Nitrostat Tab) 0.4 mg UD PRN SL 04/10/17 17:00 05/10/17 16:59 Aspirin (Ecotrin Tab) 81 mg DAILY PO 04/11/17 09:00 05/11/17 08:59 04/11/17 08:28 81 MG Atorvastatin Calcium (Lipitor Tab) 80 mg DAILY PO 04/11/17 09:00 05/11/17 08:59 04/11/17 08:26 80 MG Cyclobenzaprine HCl (Flexeril Tab) 10 mg HS PRN PO 04/10/17 17:30 05/10/17 17:29 Digoxin (Lanoxin Tab) 0.125 mg DAILY@1600 PO 04/11/17 16:00 05/11/17 15:59 Diltiazem HCl (TIAzac CAP) 120 mg DAILY PO 04/11/17 09:00 05/11/17 08:59 04/11/17 08:27 120 MG EZETIMIBE (Zetia Tab) 10 mg HS PO 04/10/17 21:00 05/10/17 20:59 04/10/17 20:06 10 MG Fish Oil ([place]-3 (Purified Fish Oil) Cap) 1 gm BID PO 04/10/17 21:00 05/10/17 20:59 04/11/17 08:25 1 GM Folic Acid (Folvite Tab) 1 mg DAILY PO 04/11/17 09:00 05/11/17 08:59 04/11/17 08:28 1 MG Furosemide (Lasix Tab) 20 mg MoFr@0900 PO 04/12/17 09:00 05/12/17 08:59 Losartan Potassium (coZAAR TAB) 25 mg DAILY PO 04/11/17 09:00 05/11/17 08:59 04/11/17 08:28 25 MG Magnesium Oxide (Mag-Ox Tab) 400 mg BID PO 04/10/17 21:00 05/10/17 20:59 04/11/17 08:25 400 MG Metoprolol Tartrate (Lopressor Tab) 25 mg BID PO 04/10/17 21:00 05/10/17 20:59 04/11/17 08:25 25 MG Multivitamins (Multivitamin Tab) 1 tab DAILY PO 04/11/17 09:00 05/11/17 08:59 04/11/17 08:27 1 TAB Oxycodone/ Acetaminophen (Percocet 5-325mg Tab) 1 tab Q6H PRN PO 04/10/17 17:30 04/24/17 17:29 Miscellaneous (Iv Fluids Completed) 1 ea PRN PRN N/A 04/10/17 18:00 04/10/18 17:59 Enoxaparin Sodium (Lovenox Inj) 40 mg Q24H SQ 04/10/17 21:00 05/10/17 20:59 04/10/17 21:46 40 MG Isosorbide Mononitrate (Imdur Ext Rel Tab) 60 mg QAM PO 04/12/17 09:00 05/12/17 08:59 Objective Vital Signs Date Time Temp Pulse Resp B/P (MAP) Pulse Ox O2 Delivery O2 Flow Rate FiO2 04/11/17 11:05 36.8 18 126/77 (93) 96 Room Air 04/11/17 08:00 Room Air 04/11/17 07:31 36.8 20 116/74 (88) 95 Room Air 04/11/17 04:00 Room Air 04/11/17 03:05 36.6 73 18 118/75 (89) 93 Room Air 04/11/17 00:01 Room Air 04/10/17 23:05 36.8 72 20 102/66 (78) 94 Room Air 04/10/17 20:00 Room Air 04/10/17 19:02 36.7 83 16 131/81 (98) 94 Room Air 04/10/17 18:25 36.6 84 20 139/88 92 Room Air 04/10/17 18:01 88 18 124/81 04/10/17 17:00 77 22 95 04/10/17 16:45 77 9 95 04/10/17 16:30 79 14 93 04/10/17 16:15 76 0 93 04/10/17 16:02 106/63 04/10/17 16:00 78 18 95 04/10/17 15:45 80 14 92 04/10/17 15:30 78 3 95 04/10/17 15:15 78 9 93 04/10/17 15:02 113/76 04/10/17 15:02 79 12 113/76 92 Room Air 04/10/17 15:01 126/72 04/10/17 15:00 78 13 87 04/10/17 14:45 78 3 91 04/10/17 14:31 79 19 119/77 93 Room Air 04/10/17 14:31 119/77 04/10/17 14:30 79 96 04/10/17 14:24 79 04/10/17 14:21 96 Room Air 04/10/17 14:19 122/87 04/10/17 14:05 36.7 85 18 148/90 93 Room Air Physical Exam General Appearance: no apparent distress Respiratory/Chest: chest non-tender, lungs clear, normal breath sounds, no respiratory distress, no accessory muscle use Cardiovascular: regular rate, rhythm, no edema, no murmur Laboratory Results Last 24 Hours Test 04/10/17 14:20 04/10/17 20:00 04/10/17 20:07 04/11/17 01:56 White Blood Count 11.02 K/uL Red Blood Count 5.00 M/uL Hemoglobin 15.8 g/dL Hematocrit 44.6 % Mean Corpuscular Volume 89.2 fL Mean Corpuscular Hemoglobin 31.6 pg Mean Corpuscular Hemoglobin Concent 35.4 g/dl Platelet Count 239 K/uL Mean Platelet Volume 9.5 fL Neutrophils (%) (Auto) 56.8 % Lymphocytes (%) (Auto) 30.4 % Monocytes (%) (Auto) 8.5 % Eosinophils (%) (Auto) 3.6 % Basophils (%) (Auto) 0.4 % Neutrophils # (Auto) 6.26 K/uL Lymphocytes # (Auto) 3.35 K/uL Monocytes # (Auto) 0.94 K/uL Eosinophils # (Auto) 0.40 K/uL Basophils # (Auto) 0.04 K/uL RDW Standard Deviation 44.0 fL RDW Coefficient of Variation 13.5 % Immature Granulocyte % (Auto) 0.3 % Immature Granulocyte # (Auto) 0.03 K/uL Prothrombin Time 10.3 SECONDS Prothromb Time International Ratio 1.0 Activated Partial Thromboplast Time 24.8 SECONDS Partial Thromboplastin Ratio 1.0 Sodium Level 134 mmol/L Potassium Level 3.7 mmol/L Chloride Level 102 mmol/L Carbon Dioxide Level 28 mmol/L Anion Gap 4.0 mmol/L Blood Urea Nitrogen 24 mg/dl Creatinine 1.30 mg/dl Est Creatinine Clear Calc Drug Dose 86.7 ml/min Estimated GFR () 69.7 Estimated GFR (Non- 60.1 BUN/Creatinine Ratio 18.4 Random Glucose 99 mg/dl Calcium Level 9.3 mg/dl Magnesium Level 2.1 mg/dl Total Creatine Kinase 101 U/L Creatine Kinase MB 2.3 ng/ml 1.6 ng/ml 1.9 ng/ml Creatine Kinase MB Ratio 2.3 Troponin I < 0.015 ng/ml < 0.015 ng/ml < 0.015 ng/ml Digoxin Level 0.6 ng/ml Hepatitis C Antibody Screen NEG Test 04/11/17 07:49 Thyroid Stimulating Hormone (TSH) 1.060 uIu/ml Assessment and Plan CHEST PAIN, PALPITATIONS HX ATRIAL ARRHYTHMIAS, AV NODE DYSFUNCTION S/P PACEMAKER CAD 04/11 appreciate cardiology input chest pain likely represents a vasospasm will d/c home with plan for outpatient nuclear stress test for now, we will increase Imdur to 60mg daily SL nitro script given - admit to tele - patient presenting with chest pain and palpitations that developed while sitting at work - recent cardiology clinic visit for complaints of exertional shortness of breath and fatigue. He underwent a pacemaker interrogation that showed an approximate 2% atrial fibrillation burden. Unfortunately patient has not tolerated higher doses of beta ken and is fairly symptomatic when he is atrial fibrillation. It was decided to start the patient on digoxin. Anticoagulation with Eliquis was also discussed however is on hold until patient completes injections he is receiving in his back. - EKG currently demonstrates paced rhythm, initial troponin negative - suspect patient was experiencing an atrial arrhythmia; will obtain pace maker integration - hx of atrial arrhythmias in the past s/p ablation - per Dr. Luna's clinic note several therapies are being considered: initiation of antiarrhythmic therapy, ablation, cardioversion - will continue to cycle cardiac enzymes, check resting echo - noted negative Lexiscan 05/2016, preserved LVEF - cardiac cath 05/2014 - moderate non obstructive disease - for now continue patient's home regimen: digoxin, metoprolol, diltiazem, isosorbide, losartan, ezetimibe, atorvastatin, ASA - cardiology consult DVT PROPHYLAXIS - SQ Lovenox DISPO - The patient will be placed as observation status for now until further work up is complete.
[2017-04-11] MEDS ORDERED: NTRGSL/4 UT (12:40)
[2017-04-11] MEDS ORDERED: ISOS60TA25 PO (12:40)
--- NOTE | 2017-04-11 12:44 | Discharge Instructions ---
Discharge Instructions Date of Service Apr 11, 2017. Admission Reason for Admission: Chest Pain Discharge Discharge Diagnosis / Problem: CAD, Coronary Vasospasm Discharge Goals Goal(s): Decrease discomfort, Improve function, Diagnostic testing, Therapeutic intervention Activity Recommendations Activity Limitations: resume your previous activity . Instructions / Follow-Up Instructions / Follow-Up Please follow-up with cardiology for outpatient stress test Your dose of Imdur is increased from 30mg to 60mg You are given a script for SL Nitro Current Hospital Diet Patient's current hospital diet: AHA Diet (Heart Healthy), Low Sodium Diet (2gm Na) Discharge Diet Recommended Diet: AHA Diet (Heart Healthy), Low Sodium Diet (2gm Na) Pending Studies Studies pending at discharge: no Medical Emergencies . Who to Call and When: Medical Emergencies: If at any time you feel your situation is an emergency, please call 911 immediately. . Non-Emergent Contact Non-Emergency issues call your: Primary Care Provider, Film Laboratory Technician . . "Provider Documentation" section prepared by Abelino Sena. . VTE Core Measure Inpt VTE Proph given/why not?: Enoxaparin (Lovenox)SQ
--- NOTE | 2017-04-11 12:46 | Discharge Summary ---
Discharge Summary Date of Service Apr 11, 2017. Discharge Summary Admission Date: Apr 10, 2017 at 17:03 Discharge Date: Apr 11, 2017 Discharge Disposition: Home Principal Diagnosis: Chest Pain, likely Coronary Vasospasm Hx. of Atrial Arrhythmias s/p Pacemaker Medication Reconciliation Changed Medications: Isosorbide Mononitrate Ext Rel (Imdur Ext Rel) 60 Mg Ertab 60 MG PO QAM for 30 Days, #30 TAB (Changed from: Isosorbide Mononitrate Ext Rel (Imdur Ext Rel) 30 Mg Ertab 30 Mg PO QAM) Continued Medications: Aspirin (Aspirin Ec) 81 Mg Tab 81 MG PO DAILY Atorvastatin (Lipitor) 80 Mg Tab 80 MG PO DAILY Cyclobenzaprine Hcl (Flexeril) 10 Mg Tab 10 MG PO HS PRN for Muscle Spasms, TAB Digoxin (Digitek) 0.125 Mg Tab 0.125 MG PO DAILY Diltiazem HCl (Taztia Xt) 120 Mg Capcr 120 MG PO DAILY Ezetimibe (Ezetimibe) 10 Mg Tab 10 MG PO HS Fish Oil ([place]-3) 1 Ea Cap 1 CAP PO BID Folic Acid (Folic Acid) 1 Mg Tab 1 MG PO DAILY Furosemide (Lasix) 20 Mg Tab 20 MG PO 5XWK, TAB Losartan Potassium (Losartan Potassium) 25 Mg Tab 25 MG PO DAILY Magnesium Oxide (Mag-Ox) 400 Mg Tab 400 MG PO BID Metoprolol Tartrate (Lopressor) (Lopressor) 25 Mg Tab 25 MG PO BID, TAB Multivitamin (Multivitamin) Tab 1 TAB PO DAILY, TAB Nitroglycerin (Nitrostat) 0.4 Mg Tab 0.4 MG UT UD PRN for Chest Pain for 30 Days, #10 TABS (This prescription has been renewed) Oxycodone/Acetaminophen 5MG/325MG (Percocet 5MG/325MG) Tab 1 TABLET PO Q6H PRN for Pain, TAB PAIN Admission Information HPI (per Admitting provider): 57 year old male who presents to the ED with chest pain. Patient has history of atrial arrhythmias as described below. He was recently seen in the cardiology clinic for complaints of exertional shortness of breath and fatigue. He underwent a pacemaker interrogation that showed an approximate 2% atrial fibrillation burden. Unfortunately patient has not tolerated higher doses of beta ken and is fairly symptomatic when he is atrial fibrillation. It was decided to start the patient on digoxin. Anticoagulation with Eliquis was also discussed however is on hold until patient completes injections he is receiving in his back. Patient reports that today while sitting at this desk he developed palpitations and mid sternal chest discomfort. He rates the pain ~ 2/10. He denies any radiation of the pain. He took his pulse and reports it was not fast however it was irregular. Symptoms lasted for about one hour. He reports improvement once receiving SL nitro in the ED. He had associated shortness of breath and nausea. He denies lightheadedness, syncope, or diaphoresis. Patient reports this is first episode he has had since his recent visit in the cardiology clinic. He denies recent illnesses, fever, or chills. No abdominal pain, vomiting, or diarrhea. He denies urinary symptoms. In the ED, patient's EKG demonstrates paced rhythm and initial troponin is negative. Vitals are stable. Physical Exam (per Admitting): General Appearance: WD/WN, no apparent distress Head: normocephalic, atraumatic Eyes: normal inspection, EOMI, sclerae normal ENT: hearing grossly normal, + pertinent finding (mucous membranes moist) Neck: supple, no JVD, trachea midline Respiratory/Chest: lungs clear, normal breath sounds, no respiratory distress Cardiovascular: regular rate, rhythm, no edema, normal peripheral pulses, + pertinent finding (+1 edema BLLE) Abdomen/GI: normal bowel sounds, non tender, soft, no organomegaly Extremities/Musculoskelatal: normal inspection, no calf tenderness, normal capillary refill Neurologic/Psych: no motor/sensory deficits, alert, normal mood/affect, oriented x 3 Skin: normal color, warm/dry Hospital Course CHEST PAIN, PALPITATIONS HX ATRIAL ARRHYTHMIAS, AV NODE DYSFUNCTION S/P PACEMAKER CAD 04/11 appreciate cardiology input chest pain likely represents a vasospasm will d/c home with plan for outpatient nuclear stress test for now, we will increase Imdur to 60mg daily SL nitro script given - admit to tele - patient presenting with chest pain and palpitations that developed while sitting at work - recent cardiology clinic visit for complaints of exertional shortness of breath and fatigue. He underwent a pacemaker interrogation that showed an approximate 2% atrial fibrillation burden. Unfortunately patient has not tolerated higher doses of beta ken and is fairly symptomatic when he is atrial fibrillation. It was decided to start the patient on digoxin. Anticoagulation with Eliquis was also discussed however is on hold until patient completes injections he is receiving in his back. - EKG currently demonstrates paced rhythm, initial troponin negative - suspect patient was experiencing an atrial arrhythmia; will obtain pace maker integration - hx of atrial arrhythmias in the past s/p ablation - per Dr. Luna's clinic note several therapies are being considered: initiation of antiarrhythmic therapy, ablation, cardioversion - will continue to cycle cardiac enzymes, check resting echo - noted negative Lexiscan 05/2016, preserved LVEF - cardiac cath 05/2014 - moderate non obstructive disease - for now continue patient's home regimen: digoxin, metoprolol, diltiazem, isosorbide, losartan, ezetimibe, atorvastatin, ASA - cardiology consult DVT PROPHYLAXIS - SQ Lovenox DISPO - The patient will be placed as observation status for now until further work up is complete. Total time spent on discharge = 20 minutes This includes examination of the patient, discharge planning, medication reconciliation, and communication with other providers. Discharge Instructions Please follow-up with cardiology for outpatient stress test Your dose of Imdur is increased from 30mg to 60mg You are given a script for SL Nitro
[2017-04-11 12:51] VITALS: BP 126/77; PULSE 73; TEMP 36.8; O2SAT 96
--- NOTE | 2017-04-11 13:35 | NUR ---
A: Discharge instructions provided to patient. Instructed on medications changes and follow-up appointments. Saline lock and accounts payable payroll coordinator removed. Transported to private vehicle at this time with all belongings.
[2017-04-11] MEDS ORDERED: DIGOXIN 0.125 MG TAB PO SCH (16:00)
[2017-04-12] MEDS ORDERED: ISOSORBIDE MONONITRATE 60 MG TABCR PO SCH (09:00)
[2017-04-12] MEDS ORDERED: FUROSEMIDE 20 MG TAB PO SCH (09:00)
== END 2017-04-11 13:35 | disposition home or self-care (01) ==
LOC: C.EDB 14:01 → C.2T 17:03 → ENRESERV 17:26
PROVIDERS: ADMIT Family Medicine; ATTEND Family Medicine
DX: R07.9 Chest pain, unspecified (principal); I48.0 Paroxysmal atrial fibrillation; I47.1 Supraventricular tachycardia; I49.5 Sick sinus syndrome; I48.92 Unspecified atrial flutter; I25.10 Atherosclerotic heart disease of native coronary artery without angina pectoris; E72.12 Methylenetetrahydrofolate reductase deficiency; Z86.711 Personal history of pulmonary embolism; Z86.718 Personal history of other venous thrombosis and embolism; Z95.0 Presence of cardiac pacemaker; Z95.1 Presence of aortocoronary bypass graft; Z95.5 Presence of coronary angioplasty implant and graft; Z79.82 Long term (current) use of aspirin; Z79.899 Other long term (current) drug therapy

== ENCOUNTER 2019-08-29 23:51 | Observation (INO) ==
[2019-08-30] MEDS ORDERED: ASPIRIN CHEW 324 MG PO STA (00:05)
[2019-08-30] MEDS ORDERED: NITROGLYCERIN 2% OINTMENT 30GM TUBE EXT ONE (00:05)
[2019-08-30] MEDS ORDERED: NITROGLYCERIN SL 0.4 MG/TAB TAB SL STA (00:05)
--- NOTE | 2019-08-30 00:08 | Emergency Department Note ---
Impression & Plan Unstable angina ED Provider Note Name: CHI EVANS Age: 59 Sex: M Arrives Via: Walk-In Informant: Patient ED Provider: Ashutosh Lindo MD Chief Complaint: Chest Pain Impression: Unstable angina Medical Decision Making: Pleasant 59 yr old male with extensive cardiac history including CABG, Valve replacement, stenting and pacemaker who arrives with increasing left sided chest pain over last week or so, initially with exertion and now even at rest. ASA 324mg PO and SLNTG given with resolution. CXR and labs unremarkable with negative trop. EKG with paced rythm and no stemi. Patient feeling better but given symptoms consistent with unstable angina will bring in for cardiac rule out and further evaluation/management. Stable at time of hospitalization. He is already on eliquis and I do not feel starting further anticoagulation necessary currently. History of PE/DVT but this is not consistent with PE and again, already on anticoagulation. Prior Medical Record and Triage/Nursing Notes reviewed by Me Additional history obtained from Differentials:Cardiac ischemia, aortic dissection, pulmonary embolism, pneumothorax, pneumonia, pericarditis, myocarditis, esophageal rupture, GERD, cholecystitis, pancreatitis, musculoskeletal, as well as other pathologies. Vital Signs: reviewed and remarkable for wnl Interventions: Saline lock, asa 324mg PO, slntg, nitro paste Labs:Reviewed and remarkable for no significant abnormalities Imaging:X ray results are stated below per my interpretation: Chest: 1 view: No infiltrate, no effusion, normal cardiac border. EKG:Per My Interpretation: Indication Chest Pain: A sensed, v paced 82 bpm, qtc 476. No Ectopy. No Ischemia. Compared to EKG 04/11/17, no significant changes. Cardiac/Tele Monitoring: Cardiac Monitoring: An Order was placed for continuous cardiac monitoring. The monitor shows a rate of 80 with a paced rhythm. Consults:Dr Radha Vega Hospitalist Plan: Disposition:Hospitalization. Condition: Good Blood pressure:Normal.No Referral necessary Prescriptions:none PDMP: n/a History of Present Illness:59 / M arrives for evaluation of chest pain. Patient arrives with several hours waxing/waning chest pains. Occuring at rest. Improves with SLNTG at home. Worse with exertion. Notes he has been having chest pains and shortness of breath with exertion over last few weeks. Denies cp at rest until today. No syncope, sob at rest, cough, fevers, chills, new back pain, abdominal pain, urinary/bowel changes, leg swelling, calf pain nor other symptoms. This is similar to cardiac symptoms he had in 2001 which resulted in CABG, valve replacement and stents. Pacemaker placed a few years ago as well. No new medications taken recently. Is on eliquis. No black nor bloody stools. ROS: See above HPI for pertinent positives & negatives. A total of 10 systems r eviewed and were otherwise negative. Past Medical History:See Below Past Surgical History:See Below Family History:See Below Social History:See Below Home Medications:See Below Allergies:See Below Vitals:Blood Pressure: 128/65, Pulse 63, RR 24, T 36.5C, O2 94% on RA Physical Exam: GENERAL: Patient is well appearing and in mild distress. EYES: No scleral icterus, unremarkable pupils. ENT: Mucous membranes moist, no nasal congestion. NECK: No masses appreciated, nomeningismus, trachea is midline. RESPIRATORY: No dyspnea. Clear to auscultation and equal bilaterally. No wheeze, no rhonchi. CARDIOVASCULAR: Regular rate and rhythm.No murmurs, rubs, gallops appreciated. GASTROINTESTINAL: Abdomen soft, non-tender, no peritonitis.Bowel sounds positive.No masses appreciated. BACK: No midline tenderness, no CVA tenderness EXTREMITIES: Normal motion all extremities, no cyanosis, mild edema bilaterall NEUROLOGIC: Alert and oriented, no acute motor or sensory deficits, no focal weakness, cranial nerves grossly intact. SKIN: No rash, no jaundice, no diaphoresis. PSYCH: Appropriate GCS: 15 Ashutosh Lindo MD Past Med/Surg History Social History Feels Safe at Home: Yes Smoking Status: Never smoker Allergies Allergies Allergy/AdvReac Type Severity Reaction Status Date / Time No Known Allergies Allergy Verified 08/30/19 00:36 Home Meds Home Medications Medication Instructions Recorded Confirmed aspirin 81 mg PO HS 06/19/19 08/30/19 atorvastatin [Lipitor] 80 mg PO HS 06/19/19 08/30/19 digoxin [Digox] 125 mcg PO QAM 06/19/19 08/30/19 diltiazem HCl [Taztia XT] 120 mg PO QAM 06/19/19 08/30/19 ezetimibe [Zetia] 10 mg PO HS 06/19/19 08/30/19 folic acid 1 mg PO HS 06/19/19 08/30/19 furosemide [Lasix] 20 mg PO QAM 06/19/19 08/30/19 losartan [Cozaar] 25 mg PO HS 06/19/19 08/30/19 magnesium oxide 400 mg PO BID 06/19/19 08/30/19 metoprolol tartrate 25 mg PO BID 06/19/19 08/30/19 [id number]-bhmystzv-vpvlfj 1 tab PO QAM 06/19/19 08/30/19 [Multivitamin 50 Plus] nitroglycerin [Nitrostat] 0.4 mg SUBLINGUAL UD PRN 06/19/19 08/30/19 omega 5-sgd-piv-fish oil [Fish Oil] 1 cap PO BID 06/19/19 08/30/19 oxycodone-acetaminophen [Percocet] 1 tab PO HS PRN 06/19/19 08/30/19 Results & Data (ED) Vital Signs Vital Signs - 24 hr 08/29/19 23:52 08/30/19 00:24 08/30/19 00:35 Temperature 36.5 C Temperature Source Oral Pulse Rate 84 82 79 Pulse Rate from SpO2 Sensor 80 79 Pulse Strength Normal Respiratory Rate 18 25 H 21 Respiratory Effort / Characteristics Non-Labored Respiratory Depth Normal Respiratory Pattern Regular Blood Pressure 156/83 H 134/77 136/76 Blood Pressure Mean 107 94 83 Blood Pressure Position Sitting Pulse Oximetry 97 94 94 Oxygen Delivery Method Room Air Sepsis Recent Fever Within 48 Hours No Sepsis New/Unexplained Change in Mental Status No Sepsis Action Taken by Nursing No Action Required 08/30/19 00:45 08/30/19 01:00 08/30/19 01:15 Temperature Temperature Source Pulse Rate 79 76 63 Pulse Rate from SpO2 Sensor 79 77 78 Pulse Strength Respiratory Rate 21 18 24 Respiratory Effort / Characteristics Respiratory Depth Respiratory Pattern Blood Pressure 141/72 H 133/66 128/65 Blood Pressure Mean 91 72 78 Blood Pressure Position Pulse Oximetry 92 93 94 Oxygen Delivery Method Sepsis Recent Fever Within 48 Hours Sepsis New/Unexplained Change in Mental Status Sepsis Action Taken by Nursing Laboratory Data Result diagrams: 08/30/19 00:20 08/30/19 00:20 Lab Results 08/30/19 08/30/19 08/30/19 Range/Units 00:20 00:20 00:20 WBC 9.34 (4.8-10.8) K/uL RBC 4.92 (4.7-6.1) M/uL Hgb 15.7 (14.0-18.0) g/dL Hct 44.5 (42-52) % MCV 90.4 (80-100) fL MCH 31.9 (25-34) pg MCHC 35.3 (32-36) g/dL RDW Std Deviation 44.6 (36.4-46.3) fL RDW Coeff of Haleigh 13.6 (11.5-14.5) % Plt Count 227 (130-400) K/uL MPV 9.6 (7.4-10.4) fL Immature Gran % (Auto) 0.1 % Neut % (Auto) 59.1 % Lymph % (Auto) 28.2 % [place] % (Auto) 10.2 % Eos % (Auto) 2.1 % Baso % (Auto) 0.3 % Immature Gran # (Auto) 0.01 (0.00-0.02) K/uL Neut # (Auto) 5.52 (1.4-6.5) K/uL Lymph # (Auto) 2.63 (1.2-3.4) K/uL [place] # (Auto) 0.95 H (0.11-0.59) K/uL Eos # (Auto) 0.20 (0-0.5) K/uL Baso # (Auto) 0.03 (0-0.2) K/uL PT 10.5 (9.0-12.0) Seconds INR 1.0 (0.9-1.1) APTT 26.0 (21.0-31.0) Seconds PTT Ratio 0.9 Sodium 140 (136-145) mmol/L Potassium 3.7 (3.5-5.1) mmol/L Chloride 108 H (98-107) mmol/L Carbon Dioxide 24 (21-32) mmol/L Anion Gap 8.0 (3-11) BUN 20 H (7-18) mg/dl Creatinine 1.18 (0.6-1.4) mg/dl Est Cr Clr Drug Dosing 100.4 ml/min Est GFR ( Amer) 77.3 Est GFR (Non-Af Amer) 66.7 BUN/Creatinine Ratio 16.6 (10-20) Glucose 135 H (70-99) mg/dl Calcium 8.2 L (8.5-10.1) mg/dl Magnesium 1.9 (1.8-2.4) mg/dl Total Bilirubin 0.3 (0.2-1) mg/dl Direct Bilirubin < 0.1 (0-0.2) mg/dl AST 37 (15-37) U/L ALT 61 (12-78) U/L Alkaline Phosphatase 70 (45-117) U/L Troponin I < 0.015 (0-0.045) ng/ml Total Protein 7.2 (6.4-8.2) gm/dl Albumin 3.2 L (3.4-5.0) gm/dl Lipase 248 (73-393) U/L Specimen Hemolysis Cancelled Administered Medications Lactated Ringer's (Lr) 1,000 mls @ 40 mls/hr IV .Q24H STA Stop: 08/31/19 02:54 Last Admin: 08/30/19 02:58 Dose: 40 mls/hr Documented by: [id number] Discontinued Medications Aspirin (Aspirin) 324 mg PO NOW STA Stop: 08/30/19 00:06 Last Admin: 08/30/19 00:35 Dose: 324 mg Documented by: [id number] Nitroglycerin (Nitrostat) 0.4 mg SL NOW STA Stop: 08/30/19 00:06 Last Admin: 08/30/19 00:35 Dose: 0.4 mg Documented by: [id number] Nitroglycerin (Nitro-Bid 2%) 1 inch EXT NOW ONE Stop: 08/30/19 00:06 Last Admin: 08/30/19 00:35 Dose: 1 inch Documented by: [id number] Discharge Plan Visit Data Chief Complaint: Chest Pain Stated Complaint: CHEST PAIN ED Provider: Ashutosh Lindo Discharge Problem: Unstable angina Forms Stand Alone Forms: My Apportable Prescriptions Prescriptions: No Action atorvastatin [Lipitor] 80 mg Tablet 80 mg PO HS RF: 0 aspirin 81 mg Tablet,Delayed Release (Dr/Ec) 81 mg PO HS RF: 0 oxycodone-acetaminophen [Percocet] 5-325 mg tablet 1 tab PO HS PRN (Reason: Pain) RF: 0 diltiazem HCl [Taztia XT] 120 mg Capsule,Extended Release 24 Hr 120 mg PO QAM RF: 0 losartan [Cozaar] 25 mg Tablet 25 mg PO HS RF: 0 nitroglycerin [Nitrostat] 0.4 mg Tablet, Sublingual 0.4 mg sublingual UD PRN (Reason: Chest Pain) RF: 0 folic acid 1 mg Tablet 1 mg PO HS RF: 0 digoxin [Digox] 125 mcg (0.125 mg) Tablet 125 mcg PO QAM RF: 0 furosemide [Lasix] 20 mg Tablet 20 mg PO QAM RF: 0 Multivitamin 50 Plus Tablet 1 tab PO QAM RF: 0 ezetimibe [Zetia] 10 mg Tablet 10 mg PO HS RF: 0 metoprolol tartrate 25 mg tablet 25 mg PO BID RF: 0 omega 5-fqq-flv-fish oil [Fish Oil] 1,000 mg (120 mg-180 mg) Capsule 1 cap PO BID RF: 0 magnesium oxide 400 mg magnesium Capsule 400 mg PO BID RF: 0
[2019-08-30 00:44] LABS: Partial Thromboplastin Ratio 0.9; Prothrombin Time 10.5 Seconds (9.0-12.0)
[2019-08-30 00:45] LABS: Basophils # (auto) 0.03 K/uL (0-0.2); Basophils % (auto) 0.3 %; Eosinophils % (auto) 2.1 %; Hematocrit (blood only) 44.5 % (42-52); Hemoglobin 15.7 g/dL (14.0-18.0); Immature Granulocytes # (auto) 0.01 K/uL (0.00-0.02); Immature Granulocytes % (auto) 0.1 %; Lymphocytes # (auto) 2.63 K/uL (1.2-3.4); Lymphocytes % (auto) 28.2 %; Mean Corpuscular Hemoglobin 31.9 pg (25-34); Mean Corpuscular Hgb Conc 35.3 g/dL (32-36); Mean Corpuscular Volume 90.4 fL (80-100); Mean Platelet Volume 9.6 fL (7.4-10.4); Monocytes # (auto) 0.95 K/uL (0.11-0.59); Monocytes % (auto) 10.2 %; Neutrophils # (auto) 5.52 K/uL (1.4-6.5); Neutrophils % (auto) 59.1 %; Platelet Count 227 K/uL (130-400); RDW Coefficient of Variation 13.6 % (11.5-14.5); RDW Standard Deviation 44.6 fL (36.4-46.3); Red Blood Count 4.92 M/uL (4.7-6.1); White Blood Count 9.34 K/uL (4.8-10.8)
[2019-08-30 02:09] LABS: Alanine Aminotransferase 61 U/L (12-78); Albumin Level 3.2 gm/dl (3.4-5.0); Alkaline Phosphatase 70 U/L (45-117); Aspartate Aminotransferase 37 U/L (15-37); BUN Creatinine Ratio 16.6 (10-20); Bilirubin,Total 0.3 mg/dl (0.2-1); Blood Urea Nitrogen 20 mg/dl (7-18); Calcium 8.2 mg/dl (8.5-10.1); Carbon Dioxide 24 mmol/L (21-32); Chloride 108 mmol/L (98-107); Creatinine Clr Calc Pharmacy 100.4 ml/min; Est GFR (African American) 77.3; Est GFR (Non-African American) 66.7; Glucose 135 mg/dl (70-99); Lipase 248 U/L (73-393); Magnesium 1.9 mg/dl (1.8-2.4); Potassium 3.7 mmol/L (3.5-5.1); Sodium 140 mmol/L (136-145); Total Protein 7.2 gm/dl (6.4-8.2); Troponin I < 0.015 ng/ml (0-0.045)
[2019-08-30 02:13] LABS: Bilirubin Direct < 0.1 mg/dl (0-0.2)
--- NOTE | 2019-08-30 02:48 | History & Physical Report ---
Date of Service August 30, 2019 Assessment & Plan (1) Unstable angina: hx CAD status post CABG/stent PAF on Eliquis/2AVB status post PPM, paced rhythm hx mitral regurgitation status post repair history of PE/DVT/MTHFR mutation as per records RCCA right sp surgery hypertension, stable hyperlipidemia on statin Rx prediabetes, hemoglobin A1c of 5.29 December 2018 past tobacco abuse OBS PCU Continue patient's ASA, beta-ken, statin Rx Follow troponin Cardiology consult RE chest pain DVT prophylaxis. Eliquis if no cardiac procedure contemplated Full code Text document was generated using [employer] voice recognition software. It may contain grammatical or spelling errors. Kindly contact undersigned for clarification of any documentation item in question. History of Present Illness Chief Complaint: Chest pain Primary Care Provider: Rachel Garcia MD History obtained from patient and records. Medical history significant for CAD status post CABG/stent, PAF on Eliquis, 2AVB status post PPM, mitral regurgitation status post repair, history of PE/DVT/MTHFR mutation as per records, RCCA right sp surgery, hypertension, hyperlipidemia, prediabetes, past tobacco abuse. Last confinement March 2017 for chest pain attributed to coronary vasospasm. Patient was sitting down at home yesterday when he experienced substernal discomfort without associated symptoms and radiation relieved by nitroglycerin at home. Episode about 2 weeks ago after walking a few miles with relieved by rest. Patient compliant with home meds. At the ER, nitro paste administered. Patient currently comfortable. Medical History as above Surgical History : CABG, PPM, mitral valve repair/annuloplasty/reconstruction, right nephrectomy, nasal septum repair, eye surgery Family History : Breast cancer, brain cancer, heart disease, MS Personal/Social history : Past tobacco abuse, 3 beers daily as per records, [employer] Allergies Allergy/AdvReac Type Severity Reaction Status Date / Time No Known Allergies Allergy Verified 08/30/19 00:36 Home Medications Home Medications Medication Instructions Recorded Confirmed Type aspirin 81 mg PO HS 06/19/19 08/30/19 History atorvastatin [Lipitor] 80 mg PO HS 06/19/19 08/30/19 History digoxin [Digox] 125 mcg PO QAM 06/19/19 08/30/19 History diltiazem HCl [Taztia XT] 120 mg PO QAM 06/19/19 08/30/19 History ezetimibe [Zetia] 10 mg PO HS 06/19/19 08/30/19 History folic acid 1 mg PO HS 06/19/19 08/30/19 History furosemide [Lasix] 20 mg PO QAM 06/19/19 08/30/19 History losartan [Cozaar] 25 mg PO HS 06/19/19 08/30/19 History magnesium oxide 400 mg PO BID 06/19/19 08/30/19 History metoprolol tartrate 25 mg PO BID 06/19/19 08/30/19 History iuejowblcjgk-ojwzytpb-tbtokk 1 tab PO QAM 06/19/19 08/30/19 History [Multivitamin 50 Plus] nitroglycerin [Nitrostat] 0.4 mg SUBLINGUAL UD PRN 06/19/19 08/30/19 History omega 4-hca-gcg-fish oil [Fish Oil] 1 cap PO BID 06/19/19 08/30/19 History oxycodone-acetaminophen [Percocet] 1 tab PO HS PRN 06/19/19 08/30/19 History Past Med/Surg History Social History Preferred Language: Lithuanian 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 Beliefs That Will Affect Care: None Current Living Situation: Spouse Other Information That Helps Us Care for You: No Feels Safe at Home: Yes Safety Concerns: Feels Safe At This Time Smoking Status: Never smoker Hx Alcohol Use: Yes Alcohol type: beer and wine Hx Substance Use: No Review of Systems Review of Systems: As per HPI, all 10 systems reviewed, all other ROS negative Physical Exam Physical Exam: GENERAL: Comfortable, obese, pleasant, no respiratory distress SKIN: Normal color, warm HEENT: [place] palpebral conjunctivae, no ptosis, moist buccal mucosa NECK : Supple, short neck, no tenderness CHEST : CTA, no tenderness HEART : RRR, no obvious murmurs ABDOMEN: Some distention, nontender EXTREMITIES : Bilateral LE swelling R >L (chronic), no LE tenderness, no other conspicuous deformities noted NEUROLOGIC : Coherent, no facial asymmetry, no other gross focality Results & Data Results & Data ([facility]) Vital Signs (Past 12 Hours) Vital Signs Temp Pulse Resp BP Pulse Ox 08/30/19 01:15 63 24 128/65 94 08/30/19 01:00 76 18 133/66 93 08/30/19 00:45 79 21 141/72 H 92 08/30/19 00:35 79 21 136/76 94 08/30/19 00:24 82 25 H 134/77 94 08/29/19 23:52 36.5 C 84 18 156/83 H 97 Laboratory Results Laboratory Results WBC 9.34 K/uL (4.8-10.8) 08/30/19 00:20 RBC 4.92 M/uL (4.7-6.1) 08/30/19 00:20 Hgb 15.7 g/dL (14.0-18.0) 08/30/19 00:20 Hct 44.5 % (42-52) 08/30/19 00:20 MCV 90.4 fL (80-100) 08/30/19 00:20 MCH 31.9 pg (25-34) 08/30/19 00:20 MCHC 35.3 g/dL (32-36) 08/30/19 00:20 RDW Std Deviation 44.6 fL (36.4-46.3) 08/30/19 00:20 RDW Coeff of Haleigh 13.6 % (11.5-14.5) 08/30/19 00:20 Plt Count 227 K/uL (130-400) 08/30/19 00:20 MPV 9.6 fL (7.4-10.4) 08/30/19 00:20 Immature Gran % (Auto) 0.1 % 08/30/19 00:20 Neut % (Auto) 59.1 % 08/30/19 00:20 Lymph % (Auto) 28.2 % 08/30/19 00:20 [place] % (Auto) 10.2 % 08/30/19 00:20 Eos % (Auto) 2.1 % 08/30/19 00:20 Baso % (Auto) 0.3 % 08/30/19 00:20 Immature Gran # (Auto) 0.01 K/uL (0.00-0.02) 08/30/19 00:20 Neut # (Auto) 5.52 K/uL (1.4-6.5) 08/30/19 00:20 Lymph # (Auto) 2.63 K/uL (1.2-3.4) 08/30/19 00:20 [place] # (Auto) 0.95 K/uL (0.11-0.59) H 08/30/19 00:20 Eos # (Auto) 0.20 K/uL (0-0.5) 08/30/19 00:20 Baso # (Auto) 0.03 K/uL (0-0.2) 08/30/19 00:20 PT 10.5 Seconds (9.0-12.0) 08/30/19 00:20 INR 1.0 (0.9-1.1) 08/30/19 00:20 APTT 26.0 Seconds (21.0-31.0) 08/30/19 00:20 PTT Ratio 0.9 08/30/19 00:20 Sodium 140 mmol/L (136-145) 08/30/19 00:20 Potassium 3.7 mmol/L (3.5-5.1) 08/30/19 00:20 Chloride 108 mmol/L (98-107) H 08/30/19 00:20 Carbon Dioxide 24 mmol/L (21-32) 08/30/19 00:20 Anion Gap 8.0 (3-11) 08/30/19 00:20 BUN 20 mg/dl (7-18) H 08/30/19 00:20 Creatinine 1.18 mg/dl (0.6-1.4) 08/30/19 00:20 Est Cr Clr Drug Dosing 100.4 ml/min 08/30/19 00:20 Est GFR ( Amer) 77.3 08/30/19 00:20 Est GFR (Non-Af Amer) 66.7 08/30/19 00:20 BUN/Creatinine Ratio 16.6 (10-20) 08/30/19 00:20 Glucose 135 mg/dl (70-99) H 08/30/19 00:20 Calcium 8.2 mg/dl (8.5-10.1) L 08/30/19 00:20 Magnesium 1.9 mg/dl (1.8-2.4) 08/30/19 00:20 Total Bilirubin 0.3 mg/dl (0.2-1) 08/30/19 00:20 Direct Bilirubin < 0.1 mg/dl (0-0.2) 08/30/19 00:20 AST 37 U/L (15-37) 08/30/19 00:20 ALT 61 U/L (12-78) 08/30/19 00:20 Alkaline Phosphatase 70 U/L (45-117) 08/30/19 00:20 Troponin I < 0.015 ng/ml (0-0.045) 08/30/19 00:20 Total Protein 7.2 gm/dl (6.4-8.2) 08/30/19 00:20 Albumin 3.2 gm/dl (3.4-5.0) L 08/30/19 00:20 Lipase 248 U/L (73-393) 08/30/19 00:20 Specimen Hemolysis Cancelled 08/30/19 00:20 Diagnostic Findings Chest x-ray as per my interpretation atelectasis, cardiomegaly, PPM EKG as per my interpretation : Rate 80, paced rhythm
[2019-08-30] MEDS ORDERED: LACTATED RINGER'S 1,000 ML IV STA (02:55)
[2019-08-30] MEDS ORDERED: MoRPHine SULFATE 4 MG/ML 1 ML CARP\\VIAL IV PRN (04:09)
[2019-08-30] MEDS ORDERED: NITROGLYCERIN SL 0.4 MG/TAB TAB SL PRN (04:09)
[2019-08-30] MEDS ORDERED: LORazepam 0.25 MG/0.5 ML VIAL IV PRN (04:09)
[2019-08-30] MEDS ORDERED: PROMETHAZINE HCL 12.5 MG in SODIUM CHLORIDE 0.9% 50 ML IV PRN (04:09)
[2019-08-30] MEDS ORDERED: OXYCODONE/ACETAMINOPHEN 5mg/325mg TAB PO PRN (04:09)
[2019-08-30] MEDS ORDERED: APIXABAN 5 MG TABLET PO SCH (09:00)
--- NOTE | 2019-08-30 09:09 | XRay Report ---
XR chest 1V portable CLINICAL HISTORY: Chest Pain COMPARISON STUDY: Chest radiograph April 10, 2017. FINDINGS: Dual lead left subclavian pacemaker, median sternotomy wires and a prosthetic mitral valve are noted. Cardiomegaly is unchanged. There is no evidence for pulmonary edema. No pneumothorax or pl eural effusion is noted. The appearance of the chest is unchanged. IMPRESSION: No acute cardiopulmonary findings. No change in appearance of the chest. ACT 112: Negative or not required by law. Electronically signed by: William Her M.D. 08/30/2019 9:07 AM
[2019-08-30] MEDS: dilTIAZem ER 120 MG CAPCR PO SCH (09:33)
[2019-08-30] MEDS: MAGNESIUM OXIDE 400 MG TAB PO SCH ×2 (09:34→20:46)
[2019-08-30] MEDS: CEROVITE ADV FORMULA TAB PO SCH (09:34)
[2019-08-30] MEDS: METOPROLOL TARTRATE 25 MG TAB PO SCH ×2 (09:34→20:48)
[2019-08-30] MEDS ORDERED: PERFLUTREN LIPID MICROSPHERE (DEFINITY) IV ONE (11:37)
[2019-08-30] MEDS ORDERED: NITROGLYCERIN 2% OINTMENT 30GM TUBE ONE (13:23)
[2019-08-30] MEDS: ACETAMINOPHEN 325 MG TAB PO PRN ×2 (13:25→23:48)
[2019-08-30] MEDS: NITROGLYCERIN 2% OINTMENT 30GM TUBE EXT SCH ×2 (13:29→20:46)
--- NOTE | 2019-08-30 13:53 | Cardiology Consultation ---
Date of Consultation August 30, 2019 Assessment & Plan (1) Chest pain: (2) CAD (coronary artery disease): (3) Hx of mitral valve repair: (4) Pacemaker: (5) Pulmonary embolism: (6) Renal cell carcinoma: (7) Paroxysmal A-fib: (8) AV node dysfunction: (9) Prinzmetal angina: The patient presents with recurrent chest pain which he describes as his anginal equivalent. To this point an ischemic work-up has been unremarkable without EKG changes or cardiac enzyme elevation. His chest discomfort has resolved. Given his longstanding history of Prinzmetal angina and underlying coronary artery disease I do believe an ischemic evaluation is warranted at this time so he will undergo a Lexiscan nuclear stress test which will be able to compare to his previous study from 2019. The patient agrees with this plan. N.p.o. after midnight no caffeine. We will also remotely interrogate his pacemaker at this time to evaluate for any recurrences of arrhythmias that may coincide with his symptoms. His Eliquis will be held given the possible need for cardiac catheterization. All other outpatient medications will be continued and should he have any recurrences of chest discomfort we will apply topical nitrates. Should his discomfort recur and be unamenable to medical intervention emergent cardiac catheterization may be necessary. History of Present Illness Reason for Consultation: Chest pain Requesting Physician: Dr. Zelaya Attending Physician: Cipriano Paz MD History of Present Illness It was my pleasure to see Mr. Huynh in consultation today August 30, 2019. He is a very pleasant 59-year-old gentleman who follows with Dr. Luna of our cardiology practice. He presents to [facility] on 08/30/2019 with complaints of chest pain. He states his first episode occurred approximately 1 week ago after going on a walk with his . He states that after they completed a 2 mile walk he went home and sat down and developed chest pain. He states the pain was his anginal equivalent and he describes a pressure sensation associated with diaphoresis and dizziness. He took nitroglycerin at that time and the discomfort resolved. He did not seek medical attention for that event. He then had another episode on the while seated in a recliner and resting. Again chest discomfort was his anginal equivalent and resolved with 1 sublingual nitroglycerin. Then early in the a.m. of the he again had chest discomfort this time a little bit more severe than previously he became concerned and presented to the emergency department. Upon arrival he was given sublingual nitroglycerin and again his discomfort resolved. He is not having further discomfort since admission. He states he has been in his normal state of health lately and compliant with his medication regimen. Ischemic work-up unremarkable to this point. Past medical history: 1. Prinzmetal angina pectoris. 2. Surgical mitral valve repair 2001 for severe mitral insufficiency and associated right coronary grafting. 3. Status post bare metal stent to the right coronary artery 2001 for occluded graft. 4. Repeat diagnostic cardiac catheterization May 2014 demonstrating moderate coronary atherosclerosis, no obstructive disease. 5. Paroxysmal atrial arrhythmias including atrial tachycardia status post ablation in 2006, paroxysmal atrial flutter status post ablation October of 2010, June of 2012. 6. History of underlying AV conduction system disease. 7. Paroxysmal atrial fibrillation. 8. Past renal cell carcinoma status post right nephrectomy. 9. Past pulmonary embolus and DVT. 10. MTHFR positive mutation. Allergies Allergy/AdvReac Type Severity Reaction Status Date / Time No Known Allergies Allergy Verified 08/30/19 00:36 Home Medications Home Medications Medication Instructions Recorded Confirmed Type aspirin 81 mg PO HS 06/19/19 08/30/19 History atorvastatin [Lipitor] 80 mg PO HS 06/19/19 08/30/19 History digoxin [Digox] 125 mcg PO QAM 06/19/19 08/30/19 History diltiazem HCl [Taztia XT] 120 mg PO QAM 06/19/19 08/30/19 History ezetimibe [Zetia] 10 mg PO HS 06/19/19 08/30/19 History folic acid 1 mg PO HS 06/19/19 08/30/19 History furosemide [Lasix] 20 mg PO QAM 06/19/19 08/30/19 History losartan [Cozaar] 25 mg PO HS 06/19/19 08/30/19 History magnesium oxide 400 mg PO BID 06/19/19 08/30/19 History metoprolol tartrate 25 mg PO BID 06/19/19 08/30/19 History ybbhxxeeyquy-tbeitszy-sscsfi 1 tab PO QAM 06/19/19 08/30/19 History [Multivitamin 50 Plus] nitroglycerin [Nitrostat] 0.4 mg SUBLINGUAL UD PRN 06/19/19 08/30/19 History omega 1-mbj-lvd-fish oil [Fish Oil] 1 cap PO BID 06/19/19 08/30/19 History oxycodone-acetaminophen [Percocet] 1 tab PO HS PRN 06/19/19 08/30/19 History Patient History Medical History Atrial flutter (Chronic) "s/p ablation October 2010, June 2012" Atrial tachycardia (Chronic) "s/p ablation 2006" DVT (deep venous thrombosis) (Chronic) MTHFR mutation (Chronic) Pacemaker (Chronic) Pulmonary embolism (Chronic) Renal cell carcinoma (Chronic) Surgical History History of nephrectomy, unilateral (Chronic) Hx of cardiac cath (Chronic) "May 2014 - moderate non obstructive disease" Hx of mitral valve repair (Chronic) S/P CABG x 1 (Chronic) S/P right coronary artery (RCA) stent placement (Chronic) "for occluded graft from CABG" Family History Other Family history non-contributory Social History Preferred Language: [place] [employer] Dining Room Attendant Required: No Beliefs That Will Affect Care: None Current Living Situation: Spouse Other Information That Helps Us Care for You: No Feels Safe at Home: Yes Safety Concerns: Feels Safe At This Time Smoking Status: Never smoker Hx Alcohol Use: Yes Alcohol type: beer and wine Hx Substance Use: No Review of Systems Review of Systems: All systems reviewed & are unremarkable except as noted in HPI & below Physical Exam Physical Exam: General: Awake, alert and oriented x 3. No acute distress. HEENT: Normocephalic, atraumatic. Pupils equal, round and reactive to light and accommodation. Extraocular muscles are intact. Anicteric sclera. Moist mucous membranes. Neck: No JVD. No bruit. Cardiovascular: Regular. Positive S-4. Normal S-1 and S-2. No S-3. 3/6 holosystolic ejection murmur, left sternal border, mid-clavicular line with radiation to the axilla. No rubs. Pulmonary: Clear to auscultation bilaterally. No rales, rhonchi, or wheezing. Abdomen: Bowel sounds x 4, soft. No rebound, guarding or tenderness. No organomegaly. Extremities: No clubbing, cyanosis or edema. +2 pedal pulses bilaterally. Skin: Warm and dry. Results & Data ([facility]) Vital Signs (Past 12 Hours) Vital Signs Temp Pulse Pulse Pulse Resp BP BP 08/30/19 13:15 68 18 127/72 08/30/19 12:55 69 18 132/75 08/30/19 11:05 36.7 C 66 16 142/82 H 08/30/19 08:00 65 08/30/19 06:59 36.6 C 62 16 124/75 08/30/19 03:57 36.8 C 61 18 138/84 08/30/19 03:34 65 16 123/78 08/30/19 03:31 65 16 123/78 08/30/19 02:30 68 20 133/85 Pulse Ox 08/30/19 13:15 96 08/30/19 12:55 95 08/30/19 11:05 97 08/30/19 08:00 08/30/19 06:59 94 08/30/19 03:57 95 08/30/19 03:34 95 08/30/19 03:31 95 08/30/19 02:30 93 Laboratory Results Laboratory Results - last 24 hr 08/30/19 08/30/19 08/30/19 00:20 00:20 00:20 WBC 9.34 RBC 4.92 Hgb 15.7 Hct 44.5 MCV 90.4 MCH 31.9 MCHC 35.3 RDW Std Deviation 44.6 RDW Coeff of Haleigh 13.6 Plt Count 227 MPV 9.6 Immature Gran % (Auto) 0.1 Neut % (Auto) 59.1 Lymph % (Auto) 28.2 [place] % (Auto) 10.2 Eos % (Auto) 2.1 Baso % (Auto) 0.3 Immature Gran # (Auto) 0.01 Neut # (Auto) 5.52 Lymph # (Auto) 2.63 [place] # (Auto) 0.95 H Eos # (Auto) 0.20 Baso # (Auto) 0.03 PT 10.5 INR 1.0 APTT 26.0 PTT Ratio 0.9 Sodium 140 Potassium 3.7 Chloride 108 H Carbon Dioxide 24 Anion Gap 8.0 BUN 20 H Creatinine 1.18 Est Cr Clr Drug Dosing 100.4 Est GFR ( Amer) 77.3 Est GFR (Non-Af Amer) 66.7 BUN/Creatinine Ratio 16.6 Glucose 135 H Calcium 8.2 L Magnesium 1.9 Total Bilirubin 0.3 Direct Bilirubin < 0.1 AST 37 ALT 61 Alkaline Phosphatase 70 Troponin I < 0.015 Total Protein 7.2 Albumin 3.2 L Lipase 248 Specimen Hemolysis Cancelled Digoxin Hepatitis C Ab Screen 08/30/19 08/30/19 08/30/19 02:50 03:13 03:13 WBC RBC Hgb Hct MCV MCH MCHC RDW Std Deviation RDW Coeff of Haleigh Plt Count MPV Immature Gran % (Auto) Neut % (Auto) Lymph % (Auto) [place] % (Auto) Eos % (Auto) Baso % (Auto) Immature Gran # (Auto) Neut # (Auto) Lymph # (Auto) [place] # (Auto) Eos # (Auto) Baso # (Auto) PT INR APTT PTT Ratio Sodium Potassium Chloride Carbon Dioxide Anion Gap BUN Creatinine Est Cr Clr Drug Dosing Est GFR ( Amer) Est GFR (Non-Af Amer) BUN/Creatinine Ratio Glucose Calcium Magnesium Total Bilirubin Direct Bilirubin AST ALT Alkaline Phosphatase Troponin I < 0.015 Total Protein Albumin Lipase Specimen Hemolysis Digoxin 0.5 L Hepatitis C Ab Screen Neg 08/30/19 09:53 WBC RBC Hgb Hct MCV MCH MCHC RDW Std Deviation RDW Coeff of Haleigh Plt Count MPV Immature Gran % (Auto) Neut % (Auto) Lymph % (Auto) [place] % (Auto) Eos % (Auto) Baso % (Auto) Immature Gran # (Auto) Neut # (Auto) Lymph # (Auto) [place] # (Auto) Eos # (Auto) Baso # (Auto) PT INR APTT PTT Ratio Sodium Potassium Chloride Carbon Dioxide Anion Gap BUN Creatinine Est Cr Clr Drug Dosing Est GFR ( Amer) Est GFR (Non-Af Amer) BUN/Creatinine Ratio Glucose Calcium Magnesium Total Bilirubin Direct Bilirubin AST ALT Alkaline Phosphatase Troponin I < 0.015 Total Protein Albumin Lipase Specimen Hemolysis Digoxin Hepatitis C Ab Screen Medications Administered Current Inpatient Medications Acetaminophen (Tylenol) 650 mg PO Q4H PRN PRN Reason: Pain or Fever Stop: 09/29/19 04:08 Apixaban (Eliquis) 5 mg PO BID [facility] Stop: 09/29/19 08:59 Last Admin: 08/30/19 09:33 Dose: 5 mg Documented by: Aspirin (Ecotrin Ectab) 81 mg PO HS [facility] Stop: 09/29/19 20:59 Atorvastatin Calcium (Lipitor) 80 mg PO HS [facility] Stop: 09/29/19 20:59 Digoxin (Lanoxin) 0.125 mg PO DAILY@1600 [facility] Stop: 09/29/19 15:59 Diltiazem HCl (Tiazac) 120 mg PO QAM [facility]I Stop: 09/29/19 08:59 Last Admin: 08/30/19 09:33 Dose: 120 mg Documented by: Ezetimibe (Zetia) 10 mg PO HS [facility] Stop: 09/29/19 20:59 Folic Acid (Folvite) 1 mg PO HS [facility] Stop: 09/29/19 20:59 Heparin Sodium (Porcine) (Heparin Sodium (Porcine)) 5,000 units SQ Q12 TRUDI Stop: 09/29/19 20:59 Lactated Ringer's (Lr) 1,000 mls @ 40 mls/hr IV .Q24H STA Stop: 08/31/19 02:54 Last Admin: 08/30/19 02:58 Dose: 40 mls/hr Documented by: Promethazine HCl 12.5 mg/ (Sodium Chloride) 50.5 mls @ 202 mls/hr IV Q6H PRN PRN Reason: Nausea And Vomiting Stop: 09/29/19 04:08 Lorazepam (Ativan) 0.25 mg in 0.5 mls @ 0.5 mls/min IV Q4H PRN PRN Reason: Anxiety Stop: 09/29/19 04:08 Losartan Potassium (Cozaar) 25 mg PO HS [facility] Stop: 09/29/19 20:59 Magnesium Oxide (Mag-Ox) 400 mg PO BID [facility]UDI Stop: 09/29/19 08:59 Last Admin: 08/30/19 09:34 Dose: 400 mg Documented by: Metoprolol Tartrate (Lopressor) 25 mg PO BID [facility] Stop: 09/29/19 08:59 Last Admin: 08/30/19 09:34 Dose: 25 mg Documented by: Morphine Sulfate (Morphine Sulfate) 4 mg IV Q4H PRN PRN Reason: Pain Stop: 09/13/19 04:08 Multivitamins/Minerals (Multivitamin W/ Minerals Tab) 1 tab PO QAM TRUDI Stop: 09/29/19 08:59 Last Admin: 08/30/19 09:34 Dose: 1 tab Documented by: Nitroglycerin (Nitrostat) 0.4 mg SL UD PRN PRN Reason: Chest Pain Stop: 09/29/19 04:08 Last Admin: 08/30/19 13:11 Dose: 0.4 mg Documented by: Nitroglycerin (Nitro-Bid 2%) 1 inch EXT 0200,0800,1400,2000 [facility] Stop: 09/29/19 13:14 Last Admin: 08/30/19 13:29 Dose: Not Given Documented by: Oxycodone/Acetaminophen (Percocet 5mg/325mg) 1 tab PO QID PRN PRN Reason: Pain Stop: 09/13/19 04:08
--- NOTE | 2019-08-30 14:48 | Hospitalist Progress Note ---
Date of Service August 30, 2019 Assessment & Plan (1) Unstable angina: Chest Pain Angina Equivalent H/O CAD S/P CABG/ RCA stent H/O Prinzmetal Angina Cardiac Enzymes: Negative EKG showed no signs of acute Ischemia Planned for Lexiscan nuclear stress test tomorrow Eliquis held NPO after midnight Appreciate Cardiology Input Continue Aspirin, Lipitor, Metoprolol Paroxysmal atrial fibrillation H/O AV joanie dysfunction status post S/P Pacemaker H/O Mitral regurgitation S/P repair Continue home medications H/O PE/DVT MTHFR mutation Eliquis on hold for possible cardiac cath tomorrow H/O Right Renal Cell CA S/P nephrectomy Hypertension BP stable Continue diltiazem, losartan, metoprolol Hyperlipidemia on statin Prediabetes Hb A1c of 5.29 December 2018 Past tobacco abuse DVT Px: Eliquis held Heparin SQ for now Code Status Full code Disposition Expect to discharge home when stable Admission and Anticipated Discharge Date Admission Date: August 30, 2019 Subjective Patient is seen and examined at bedside Denies any significant chest pain today Denies any shortness of breath, dizziness, nausea, abdominal pain Plan for nuclear stress test tomorrow Offers no other complaints Discussed with cardiology today Review of Systems Review of Systems: All systems reviewed & are unremarkable except as noted in HPI & below Physical Exam Physical Exam: Physical Exam: Vitals signs as noted above General Appearance:Moderately built and nourished, no apparent distress Head: normocephalic, Atraumatic Eyes: normal inspection, EOMI, PERRL Neck: supple, Trachea midline Respiratory/Chest: Normal breath sounds, CTA, No accessory muscle use Cardiovascular: S1, S2, + systolic murmur Abdomen/GI:Soft, Non tender, Bowel sounds present Extremities/Musculoskelatal:normal inspection, 2+ B/L LE edema Neurologic/Psych:AAOX3, grossly no focal neurological deficits Skin: normal color, warm Results & Data Results & Data ([facility]) Vital Signs (Past 12 Hours) Vital Signs Temp Pulse Pulse Pulse Resp BP BP 08/30/19 13:15 68 18 127/72 08/30/19 12:55 69 18 132/75 08/30/19 11:05 36.7 C 66 16 142/82 H 08/30/19 08:00 65 08/30/19 06:59 36.6 C 62 16 124/75 08/30/19 03:57 36.8 C 61 18 138/84 08/30/19 03:34 65 16 123/78 08/30/19 03:31 65 16 123/78 Pulse Ox 08/30/19 13:15 96 08/30/19 12:55 95 08/30/19 11:05 97 08/30/19 08:00 08/30/19 06:59 94 08/30/19 03:57 95 08/30/19 03:34 95 08/30/19 03:31 95 Laboratory Results Short CBC 08/30/19 Range/Units 00:20 WBC 9.34 (4.8-10.8) K/uL Hgb 15.7 (14.0-18.0) g/dL Hct 44.5 (42-52) % Plt Count 227 (130-400) K/uL BMP 08/30/19 00:20 Sodium 140 Potassium 3.7 Chloride 108 H Carbon Dioxide 24 BUN 20 H Creatinine 1.18 Glucose 135 H Calcium 8.2 L Cardiac Enzymes 08/30/19 08/30/19 08/30/19 Range/Units 00:20 02:50 09:53 Troponin I < 0.015 < 0.015 < 0.015 (0-0.045) ng/ml Liver Function 08/30/19 Range/Units 00:20 Total Bilirubin 0.3 (0.2-1) mg/dl Direct Bilirubin < 0.1 (0-0.2) mg/dl AST 37 (15-37) U/L ALT 61 (12-78) U/L Alkaline Phosphatase 70 (45-117) U/L Albumin 3.2 L (3.4-5.0) gm/dl
[2019-08-30] MEDS: DIGOXIN 0.125 MG TAB PO SCH (17:29)
[2019-08-30] MEDS: HEPARIN SOD 5,000 UNIT/0.5 ML VIAL SQ SCH (20:51)
[2019-08-30] MEDS ORDERED: ATORVASTATIN 40 MG TAB PO SCH (21:00)
[2019-08-30] MEDS ORDERED: ASPIRIN 81 MG ECTAB PO SCH (21:00)
[2019-08-30] MEDS ORDERED: EZETIMIBE 10 MG TABLET PO SCH (21:00)
[2019-08-30] MEDS ORDERED: LOSARTAN POTASSIUM 25 MG TAB PO SCH (21:00)
[2019-08-30] MEDS ORDERED: FOLIC ACID 1 MG TAB PO SCH (21:00)
--- NOTE | 2019-08-30 22:59 | Electrocardiogram Report ---
Test Reason : Blood Pressure : / mmHG Vent. Rate : 082 BPM Atrial Rate : 082 BPM P-R Int : 302 ms QRS Dur : 162 ms QT Int : 408 ms P-R-T Axes : 072 049 104 degrees QTc Int : 476 ms Atrial-sensed ventricular-paced rhythm with prolonged AV conduction Abnormal ECG When compared with ECG of 11-APR-2017 06:28, Vent. rate has increased BY 10 BPM Confirmed by Arden Watkins ([id number]) on 08/30/2019 10:59:27 PM Referred By: REFERRED SELF Confirmed By:Arden Watkins
--- NOTE | 2019-08-30 23:09 | Electrocardiogram Report ---
Test Reason : Blood Pressure : / mmHG Vent. Rate : 070 BPM Atrial Rate : 070 BPM P-R Int : 352 ms QRS Dur : 164 ms QT Int : 452 ms P-R-T Axes : 076 055 106 degrees QTc Int : 488 ms Poor data quality, interpretation may be adversely affected Atrial-sensed ventricular-paced rhythm with prolonged AV conduction Abnormal ECG When compared with ECG of 30-AUG-2019 00:06, Vent. rate has decreased BY 12 BPM Confirmed by Arden Watkins ([id number]) on 08/30/2019 11:10:05 PM Referred By: REFERRED SELF Confirmed By:Arden Watkins
[2019-08-31] MEDS: NITROGLYCERIN 2% OINTMENT 30GM TUBE EXT SCH ×2 (02:11→09:23)
[2019-08-31 06:09] LABS: Hematocrit (blood only) 41.3 % (42-52); Mean Corpuscular Hemoglobin 31.3 pg (25-34); Mean Corpuscular Hgb Conc 33.9 g/dL (32-36); Mean Corpuscular Volume 92.4 fL (80-100); Mean Platelet Volume 9.4 fL (7.4-10.4); Platelet Count 188 K/uL (130-400); RDW Coefficient of Variation 13.6 % (11.5-14.5); Red Blood Count 4.47 M/uL (4.7-6.1); White Blood Count 7.44 K/uL (4.8-10.8)
[2019-08-31 06:36] LABS: BUN Creatinine Ratio 13.7 (10-20); Calcium 8.5 mg/dl (8.5-10.1); Est GFR (Non-African American) 77.7; Magnesium 2.3 mg/dl (1.8-2.4); Potassium 4.1 mmol/L (3.5-5.1)
[2019-08-31] MEDS ORDERED: REGADENOSON 0.4 MG/5 ML SYR IV ONE (08:06)
[2019-08-31] MEDS: METOPROLOL TARTRATE 25 MG TAB PO SCH (11:09)
[2019-08-31] MEDS: dilTIAZem ER 120 MG CAPCR PO SCH (11:09)
[2019-08-31] MEDS: MAGNESIUM OXIDE 400 MG TAB PO SCH (11:09)
[2019-08-31] MEDS: CEROVITE ADV FORMULA TAB PO SCH (11:09)
--- NOTE | 2019-08-31 12:49 | Hospitalist Progress Note ---
Date of Service August 31, 2019 Assessment & Plan (1) Unstable angina: Chest Pain Angina Equivalent H/O CAD S/P CABG/ RCA stent H/O Prinzmetal Angina Cardiac Enzymes: Negative EKG showed no signs of acute Ischemia Lexiscan nuclear stress test:Nonischemic Lexiscan nuclear stress test. Normal perfusion throughout the myocardium at stress and rest. Normal LV wall motion and systolic function. EF calculated to be 71%. Appreciate Cardiology Input Continue Aspirin, Lipitor, Metoprolol Added Isosorbide 30mg daily Paroxysmal atrial fibrillation H/O AV joanie dysfunction status post S/P Pacemaker H/O Mitral regurgitation S/P repair Continue home medications Resume Eliquis as able H/O PE/DVT MTHFR mutation Resume Eliquis H/O Right Renal Cell CA S/P nephrectomy Hypertension BP stable Continue diltiazem, losartan, metoprolol Hyperlipidemia on statin Prediabetes Hb A1c of 5.29 December 2018 Past tobacco abuse DVT Px: Eliquis Code Status Full code Disposition Expect to discharge home when stable Admission and Anticipated Discharge Date Admission Date: August 30, 2019 Subjective Patient is seen and examined at bedside Had stress test this morning Chest pain resolved Denies any SOB, dizziness, nausea, abdominal pain No new complaints Review of Systems Review of Systems: All systems reviewed & are unremarkable except as noted in HPI & below Physical Exam Physical Exam: Physical Exam: Vitals signs as noted above General Appearance:Moderately built and nourished, no apparent distress Head: normocephalic, Atraumatic Eyes: normal inspection, EOMI, PERRL Neck: supple, Trachea midline Respiratory/Chest: Normal breath sounds, CTA, No accessory muscle use Cardiovascular: S1, S2, + systolic murmur Abdomen/GI:Soft, Non tender, Bowel sounds present Extremities/Musculoskelatal:normal inspection, 2+ B/L LE edema Neurologic/Psych:AAOX3, grossly no focal neurological deficits Skin: normal color, warm Results & Data Results & Data ([facility]) Vital Signs (Past 12 Hours) Vital Signs Temp Pulse Resp BP Pulse Ox 08/31/19 11:12 36.4 C L 61 18 143/85 H 95 08/31/19 07:42 36.7 C 59 L 18 114/72 96 08/31/19 03:14 36.4 C L 65 16 136/79 97 Laboratory Results Short CBC 08/31/19 Range/Units 05:29 WBC 7.44 (4.8-10.8) K/uL Hgb 14.0 (14.0-18.0) g/dL Hct 41.3 L (42-52) % Plt Count 188 (130-400) K/uL BMP 08/31/19 05:29 Sodium 140 Potassium 4.1 Chloride 108 H Carbon Dioxide 27 BUN 14 Creatinine 1.04 Glucose 101 H Calcium 8.5
[2019-08-31] MEDS ORDERED: ISOSORBIDE MONO EXTENDED REL 30 MG TABCR PO SCH (13:00)
--- NOTE | 2019-08-31 13:06 | Myocardial Perfusion Study ---
Date of Service August 31, 2019 Myocardial Perfusion Study k Myocardial Perfusion Study Report [place] Act 112: Negative Procedure: 1. Myocardial perfusion study performed in multiple views/images 2. Lexiscan pharmacologic stress ECG Indications: 1. Chest pain with a history of coronary artery disease. Ordering physician: Sen Procedural details: For the stress portion of the study, Lexiscan 0.4 mg was intravenously administered followed by a saline flush. This was followed by 31 mCi of technetium 99m Cardiolite, injected at 0945 on 08/31/2019. 30 minutes following the injection, imaging of the heart was performed in multiple projections. For the rest portion of the study, 10.2 mCi technetium 99m Cardiolite was injected intravenously at 0755 on 08/31/2019. 1 hour following the injection, imaging of the heart was performed in the same projections. Lexiscan stress ECG: Nondiagnostic with baseline EKG abnormalities. Resting ECG demonstrated: Normal sinus rhythm with a right bundle branch block and diffuse ST segment depressions Maximum heart rate: 94 bpm Maximal, age-predicted heart rate: 50 % Resting blood pressure: 126/89 mmHg Maximum blood pressure: 153/[address] changes: None Arrhythmia: None Symptoms: Transient chest heaviness Findings: Rotating raw imaging demonstrated no significant lung uptake. There is no significant motion artifact. Heart size appeared normal. Myocardial perfusion demonstrated homogeneous tracer uptake throughout the myocardium. Ejection fraction: 71 % Wall motion: Normal No significant transient ischemic dilation. Impression: 1. Nonischemic Lexiscan nuclear stress test. Normal perfusion throughout the myocardium at stress and rest. Normal LV wall motion and systolic function. EF calculated to be 71%. No significant change compared to previous study of October 20, 2018.
--- NOTE | 2019-08-31 13:12 | Cardiology Progress Note ---
Date of Service August 31, 2019 Assessment & Plan (1) Chest pain: (2) CAD (coronary artery disease): (3) Hx of mitral valve repair: (4) Pacemaker: (5) Pulmonary embolism: (6) Renal cell carcinoma: (7) Paroxysmal A-fib: (8) AV node dysfunction: (9) Prinzmetal angina: The patient presents with recurrent chest pain which he describes as his anginal equivalent. Ischemic work-up is negative. Chest discomfort likely due to his Prinzmetal angina. Chest discomfort resolved with Nitropaste so we will increase his imdur to 120 mg p.o. daily now. If his blood pressure tolerates may also increase metoprolol to 50 mg p.o. twice daily. No indication for cardiac catheterization at this time. His Eliquis will be restarted. We will order a diet now. Okay to discharge to home from a cardiac standpoint. My office will call to arrange cardiac follow-up in the next week. Continue all other outpatient medications. Subjective Patient seen and examined, medical records and medications reviewed. He states he has been feeling well overnight since Nitropaste was placed yesterday. No recurrent chest discomfort, shortness of breath, palpitations, lightheadedness, dizziness or syncope. Telemetry reviewed: Primarily ventricularly paced rhythm Review of Systems Review of Systems: All systems reviewed & are unremarkable except as noted in HPI & below Physical Exam Physical Exam: General: Awake, alert and oriented x 3. No acute distress. HEENT: Normocephalic, atraumatic. Pupils equal, round and reactive to light and accommodation. Extraocular muscles are intact. Anicteric sclera. Moist mucous membranes. Neck: No JVD. No bruit. Cardiovascular: Regular. Positive S-4. Normal S-1 and S-2. No S-3. 3/6 holosystolic ejection murmur, left sternal border, mid-clavicular line with radiation to the axilla. No rubs. Pulmonary: Clear to auscultation bilaterally. No rales, rhonchi, or wheezing. Abdomen: Bowel sounds x 4, soft. No rebound, guarding or tenderness. No organomegaly. Extremities: No clubbing, cyanosis or edema. +2 pedal pulses bilaterally. Skin: Warm and dry. Results & Data Vital Signs (Past 12 Hours) Vital Signs Temp Pulse Resp BP Pulse Ox 08/31/19 11:12 36.4 C L 61 18 143/85 H 95 08/31/19 07:42 36.7 C 59 L 18 114/72 96 08/31/19 03:14 36.4 C L 65 16 136/79 97
[2019-08-31] MEDS: HEPARIN SOD 5,000 UNIT/0.5 ML VIAL SQ SCH (13:15)
--- NOTE | 2019-08-31 14:11 | Discharge Summary ---
Date of Service August 31, 2019 Admission HPI Per Admitting Provider History obtained from patient and records. Medical history significant for CAD status post CABG/stent, PAF on Eliquis, 2AVB status post PPM, mitral regurgitation status post repair, history of PE/DVT/MTHFR mutation as per records, RCCA right sp surgery, hypertension, hyperlipidemia, prediabetes, past tobacco abuse. Last confinement March 2017 for chest pain attributed to coronary vasospasm. Patient was sitting down at home yesterday when he experienced substernal discomfort without associated symptoms and radiation relieved by nitroglycerin at home. Episode about 2 weeks ago after walking a few miles with relieved by rest. Patient compliant with home meds. At the ER, nitro paste administered. Patient currently comfortable. Medical History as above Surgical History : CABG, PPM, mitral valve repair/annuloplasty/reconstruction, right nephrectomy, nasal septum repair, eye surgery Family History : Breast cancer, brain cancer, heart disease, MS Personal/Social history : Past tobacco abuse, 3 beers daily as per records, [employer] Admission Exam Per Admitting Provider Physical Exam Physical Exam: GENERAL: Comfortable, obese, pleasant, no respiratory distress SKIN: Normal color, warm HEENT: [place] palpebral conjunctivae, no ptosis, moist buccal mucosa NECK : Supple, short neck, no tenderness CHEST : CTA, no tenderness HEART : RRR, no obvious murmurs ABDOMEN: Some distention, nontender EXTREMITIES : Bilateral LE swelling R >L (chronic), no LE tenderness, no other conspicuous deformities noted NEUROLOGIC : Coherent, no facial asymmetry, no other gross focality Principal Diagnosis Prinzmetal angina Discharge Data Allergies Allergy/AdvReac Type Severity Reaction Status Date / Time No Known Allergies Allergy Verified 08/30/19 00:36 Consultations 08/30/19 02:13 ED Decision to Admit Stat 08/30/19 04:09 Consult Cardiology Routine Procedures Performed Lexiscan nuclear stress test: Nonischemic Lexiscan nuclear stress test. Normal perfusion throughout the myocardium at stress and rest. Normal LV wall motion and systolic function. EF calculated to be 71%. CXR: No acute cardiopulmonary findings. No change in appearance of the chest. Hospital Course (1) Unstable angina: Chest Pain Angina Equivalent H/O CAD S/P CABG/ RCA stent H/O Prinzmetal Angina Cardiac Enzymes: Negative EKG showed no signs of acute Ischemia Lexiscan nuclear stress test:Nonischemic Lexiscan nuclear stress test. Normal perfusion throughout the myocardium at stress and rest. Normal LV wall motion and systolic function. EF calculated to be 71%. Appreciate Cardiology Input Continue Aspirin, Lipitor, Metoprolol Increased Isosorbide from 60mg to 120mg daily Needs follow up with Cardiology upon discharge Paroxysmal atrial fibrillation H/O AV joanie dysfunction status post S/P Pacemaker H/O Mitral regurgitation S/P repair Continue home medications Resume Eliquis as able H/O PE/DVT MTHFR mutation Resume Eliquis H/O Right Renal Cell CA S/P nephrectomy Hypertension BP stable Continue diltiazem, losartan, metoprolol Hyperlipidemia on statin Prediabetes Hb A1c of 5.29 December 2018 Past tobacco abuse DVT Px: Eliquis Code Status Full code Disposition Expect to discharge home when stable Total Time Total Time Spent Total Time Spent (In Minutes): 39 minutes Total Time Includes: Examination of the Patient, Discharge Planning, Medication Reconciliation, Communication With Other Providers and Other Discharge Plan Discharge Items Patient Disposition: Home - Self-Care Reason For Visit: CHEST PAIN Discharge Diagnosis: Prinzmetal angina Activity: Per Instructions section Exercise/Sports: Wait until after follow-up appointment Non-emergency contact: Primary Care Provider and Lean Engineer Call non-emergency contact if: you have any medication questions, your symptoms worsen, your pain is not controlled, your pain is worsening, your pain is unusual for you, your pain is concerning for you and you have a fever Follow-up/Referrals: Rachel Garcia MD [Primary Care Provider] - Diet: Heart Healthy Add Attending Provider Instructions: Follow-up with Dr. Negrete for primary care on September 04, 2019 at 11:40 AM Follow-up with your rn midwife Dr. Chatterjee as advised New Medications: You are started on Isosorbide mononitrate 30 mg daily as recommended by your rn midwife Seek immediate medical attention if your symptoms reoccur or worsen Pending Studies at Discharge: No Stand-Alone Forms: [employer], Smoking Cessation Medications and DC Order Prescriptions: New isosorbide mononitrate 120 mg tablet extended release 24 hr 120 mg PO QAM Qty: 30 RF: 1 Continued Eliquis 5 mg Tablet 5 mg PO BID RF: 0 rosuvastatin [Crestor] 40 mg Tablet 40 mg PO HS RF: 0 aspirin 81 mg Tablet,Delayed Release (Dr/Ec) 81 mg PO HS RF: 0 oxycodone-acetaminophen [Percocet] 5-325 mg tablet 1 tab PO HS PRN (Reason: Pain) RF: 0 diltiazem HCl [Taztia XT] 120 mg Capsule,Extended Release 24 Hr 120 mg PO QAM RF: 0 losartan [Cozaar] 25 mg Tablet 25 mg PO HS RF: 0 nitroglycerin [Nitrostat] 0.4 mg Tablet, Sublingual 0.4 mg sublingual UD PRN (Reason: Chest Pain) RF: 0 folic acid 1 mg Tablet 1 mg PO HS RF: 0 digoxin [Digox] 125 mcg (0.125 mg) Tablet 125 mcg PO QAM RF: 0 furosemide [Lasix] 20 mg Tablet 20 mg PO QAM RF: 0 Multivitamin 50 Plus Tablet 1 tab PO QAM RF: 0 ezetimibe [Zetia] 10 mg Tablet 10 mg PO HS RF: 0 metoprolol tartrate 25 mg tablet 25 mg PO BID RF: 0 omega 8-orx-ylo-fish oil [Fish Oil] 1,000 mg (120 mg-180 mg) Capsule 1 cap PO BID RF: 0 magnesium oxide 400 mg magnesium Capsule 400 mg PO BID RF: 0 Discontinued isosorbide mononitrate 60 mg Tablet Extended Release 24 Hr 60 mg PO DAILY RF: 0 Discharge Orders: Discharge Order (Routine); Ordered 08/31/19 Ordered By: Cipriano Paz Admission Data Admit Date/Time: 08/30/19 17:44 Attending Provider: Cipriano Paz Admit Provider: Mike Garcia Primary Care Provider: Rachel Garcia Other Providers: Mike Garcia ; Will Luna Other Interventions: Discharge Summary Assessment (RN) Last Done: 08/31/19 14:10 DC Date/Time DO NOT enter until pt leaves facility: 08/31/19 15:37
[2019-08-31] MEDS: DIGOXIN 0.125 MG TAB PO SCH (15:27)
[2019-08-31] MEDS ORDERED: ROSUVASTATIN CALCIUM 20 MG TAB PO SCH (21:00)
[2019-09-01] MEDS ORDERED: ISOSORBIDE MONO EXTENDED REL 60 MG TABCR PO SCH (09:00)
== END 2019-08-31 15:37 | disposition home or self-care (01) ==
LOC: ED 23:51 → 2S 23:51
DX: Z79.899 Other long term (current) drug therapy; R73.03 Prediabetes; Z95.2 Presence of prosthetic heart valve; I48.0 Paroxysmal atrial fibrillation; I25.111 Atherosclerotic heart disease of native coronary artery with angina pectoris with documented spasm; I49.5 Sick sinus syndrome; I10 Essential (primary) hypertension; Z86.718 Personal history of other venous thrombosis and embolism; Z86.711 Personal history of pulmonary embolism; E78.5 Hyperlipidemia, unspecified; Z95.0 Presence of cardiac pacemaker; Z87.891 Personal history of nicotine dependence; Z79.01 Long term (current) use of anticoagulants; E72.12 Methylenetetrahydrofolate reductase deficiency; Z95.1 Presence of aortocoronary bypass graft; C64.9 Malignant neoplasm of unspecified kidney, except renal pelvis

== ENCOUNTER 2022-03-15 20:07 | Inpatient (IN) ==
--- NOTE | 2022-03-15 20:50 | Emergency Department Note ---
History of Present Illness General Chief complaint: Chest Pain Stated complaint: CHEST PAIN Time Seen by Provider: 03/15/22 20:24 History of Present Illness Maximum Pain Intensity: 2 62-year-old male presents to the ED with a chief complaint of some dizziness, difficulty catching his breath, fever, chest pain and a cough. He has had a cough for few weeks. Mostly nonproductive. He had a temperature today of 100.5. Tylenol was taken at 5:30 PM. Reports some generalized weakness as well. Chronically on Eliquis for A. fib. Home Medications Medication Instructions Recorded Confirmed Type ezetimibe 10 mg tablet (Zetia) 10 mg PO HS 06/19/19 03/15/22 History folic acid 1 mg tablet 1 mg PO HS 06/19/19 03/15/22 History furosemide 20 mg tablet (Lasix) 20 mg PO QAM 06/19/19 03/15/22 History losartan 25 mg tablet (Cozaar) 25 mg PO HS 06/19/19 03/15/22 History magnesium oxide 400 mg PO BID 06/19/19 03/15/22 History metoprolol tartrate 25 mg tablet 25 mg PO BID 06/19/19 03/15/22 History bfuxnutmcnau-ebkwfsws-nxclih 1 tab PO QAM 06/19/19 03/15/22 History tablet (Multivitamin 50 Plus tablet) nitroglycerin 0.4 mg sublingual 0.4 mg sublingual UD PRN Chest Pain 06/19/19 03/15/22 History tablet (Nitrostat) omega 3-irv-qdx-fish oil 1,000 mg 1 cap PO BID 06/19/19 03/15/22 History (120 mg-180 mg) capsule (Fish Oil) oxycodone-acetaminophen 5 mg-325 1 tab PO Q6H PRN Pain 06/19/19 03/15/22 History mg tablet (Percocet) apixaban 5 mg tablet (Eliquis) 5 mg PO BID 08/31/19 03/15/22 History rosuvastatin 40 mg tablet (Crestor) 40 mg PO HS 08/31/19 03/15/22 History diltiazem HCl 120 mg 120 mg PO QAM 08/18/20 03/15/22 History tablet,extended release 24 hr isosorbide mononitrate 60 mg 60 mg PO QAM 08/18/20 03/15/22 History tablet,extended release 24 hr albuterol sulfate 90 mcg/actuation 2 puff inhalation DIRECTED PRN 03/15/22 03/15/22 History aerosol inhaler Shortness Of Breath duloxetine 30 mg capsule,delayed 30 mg PO DAILY 03/15/22 03/15/22 History release tizanidine 4 mg tablet 4 mg PO TID PRN MUSCLE SPASMS 03/15/22 03/15/22 History urea 20 % topical cream 1 applic topical BID PRN Dry Skin 03/15/22 03/15/22 History Allergies Allergy/AdvReac Type Severity Reaction Status Date / Time No Known Allergies Allergy Verified 03/15/22 21:06 Past Med/Surg History Medical History Atrial flutter "s/p ablation October 2010, June 2012"--follows with Dr. Will Luna Atrial tachycardia "s/p ablation 2006" AV node dysfunction CAD (coronary artery disease) Chronic back pain Hearing loss in left ear History of COVID-19 02/2020 @ [facility]--loss of taste/smell, felt achy, fever, pulse ox of 89%, cough--not hospitalized, no further issues History of DVT of lower extremity (~2006) MTHFR mutation Numbness of right anterior thigh On anticoagulant therapy eliquis daily Pacemaker (~2015) meditronic @ [facility] Paroxysmal A-fib on eliquis--follows with Dr. Luna Pulmonary embolism (~2006) per pt d/t DVT Renal cell carcinoma (~03/2002) right--sx Unstable angina Surgical History History of cardiac radiofrequency ablation x4--most recently 11/2019 as well as 2006, October 2010, June 2012 History of cardioversion "a couple times"--last "at least 5yrs ago" History of colonoscopy History of nephrectomy, unilateral (~03/2002) right d/t cancer History of surgical procedure on eye proper using laser left Hx of cardiac cath 01/2002 with 1 stent placed @ [facility] "May 2014 - moderate non obstructive disease"--no stent placed Hx of mitral valve repair (~06/2001) @ [facility] S/P CABG x 1 (~06/2001) S/P right coronary artery (RCA) stent placement "for occluded graft from CABG"--01/2002 Status post correction of deviated nasal septum Family History Daughter Family history of diabetes mellitus Uncle Family history of esophageal cancer Other Family history non-contributory No family history of adverse response to anesthesia Social History Smoking Status: Never smoker Second Hand Exposure: No; Hx Alcohol Use: Yes Alcohol type: beer and wine Hx Substance Use: No Preferred Language: Portuguese Communication Ability: Effective Welcome Center Attendant Required: No Beliefs That Will Affect Care: None Current Living Situation: Spouse Feels Safe at Home: Yes Assistive Devices: Contacts and Glasses Review of Systems A total of 10 systems reviewed and were otherwise negative Physical Exam Vital Signs Vital Signs - 24 hr 03/15/22 20:08 03/15/22 20:08 03/15/22 20:08 Temperature 37.9 C H Temperature Source Temporal Artery Scan Pulse Rate 101 H Pulse Rate [Apical] 110 H Pulse Rhythm Regular Pulse Rhythm [Apical] Regular Pulse Strength Normal Pulse Strength [Apical] Respiratory Rate 18 22 Respiratory Effort / Characteristics Non-Labored Spontaneous Non-Labored Respiratory Depth Normal Respiratory Pattern Regular Blood Pressure 144/81 H Blood Pressure [Left Arm] 113/84 Blood Pressure Mean 102 Blood Pressure Mean [Left Arm] 93 Blood Pressure Position Sitting Pulse Oximetry 95 86 L 98 Oxygen Delivery Method Room Air Nasal Cannula Oxygen Flow Rate 2 Sepsis Recent Fever Within 48 Hours No Sepsis New/Unexplained Change in Mental Status N/A Sepsis Action Taken by Nursing No Action Required Oxygen Flow Rate - Titration 6 Pulse Oximetry Post Tiitration 98 03/15/22 20:21 03/15/22 21:29 03/15/22 21:45 Temperature Temperature Source Pulse Rate 110 H Pulse Rate [Apical] 110 H 110 H Pulse Rhythm Pulse Rhythm [Apical] Regular Regular Pulse Strength Pulse Strength [Apical] Normal Normal Respiratory Rate 20 20 18 Respiratory Effort / Characteristics Non-Labored Non-Labored Respiratory Depth Normal Normal Respiratory Pattern Regular Blood Pressure Blood Pressure [Left Arm] 129/81 167/79 H Blood Pressure Mean Blood Pressure Mean [Left Arm] 97 108 Blood Pressure Position Pulse Oximetry 98 98 98 Oxygen Delivery Method Nasal Cannula Nasal Cannula Room Air Oxygen Flow Rate 6 2 Sepsis Recent Fever Within 48 Hours Sepsis New/Unexplained Change in Mental Status Sepsis Action Taken by Nursing Oxygen Flow Rate - Titration Pulse Oximetry Post Tiitration CONSTITUTIONAL/VITAL SIGNS: Reviewed / noted above. GENERAL: Non-toxic in appearance. Generalized weakness. INTEGUMENTARY: Warm, dry, and [place]. HEAD: Normocephalic. EYES: without scleral icterus or trauma. ENT/OROPHARYNX: clear and moist. LYMPHADENOPATHY/NECK: Is supple without lymphadenopathy or meningismus. RESPIRATORY: Diminished to auscultation bilaterally. No increased work of breathing. CARDIOVASCULAR: Regular rate and rhythm. GI/ABDOMEN: Soft and nontender. No organomegaly or pulsatile mass. EXTREMITIES: Warm and well perfused. BACK: No CVA tenderness. NEUROLOGICAL: Intact without focal deficits. PSYCHIATRIC: normal affect. MUSCULOSKELETAL: Normally developed with good muscle tone. TRIAGE NURSING DOCUMENTATION REVIEWED. Medical Decision Making Differential Diagnosis Differential includes acute coronary syndrome, myocardial infarction, CVA, TIA, anemia, infection, pneumonia, UTI, pyelonephritis, poor nutrition, dehydration, electrolyte disturbance,hypoglycemia. Medical Records Attestation: I reviewed the patient's medical records. Home Medications Current Medication List: was personally reviewed by me Laboratory Data Attestation: I reviewed the patient's lab results. Result diagrams: 03/15/22 Unknown 03/15/22 Unknown Lab Results 03/15/22 03/15/22 Range/Units Unknown Unknown WBC 16.38 H (4.8-10.8) K/ul RBC 4.98 (4.63-6.08) M/uL Hgb 15.5 (14.0-18.0) g/dl Hct 46.1 (40.1-51.0) % MCV 92.6 (80.0-100.0) fL MCH 31.1 (25.0-34.0) pg MCHC 33.6 (32.0-36.0) g/dL RDW Std Deviation 44.7 (36.4-46.3) fL RDW Coeff of Haleigh 13.2 (11.5-14.5) % Plt Count 210 (130-400) K/uL MPV 9.6 (9.4-12.4) fL Immature Gran % (Auto) 0.4 % Neut % (Auto) 81.4 % Lymph % (Auto) 11.1 % Hunt % (Auto) 6.7 % Eos % (Auto) 0.2 % Baso % (Auto) 0.2 % Neut # (Auto) 13.32 H (1.4-6.5) K/uL Lymph # (Auto) 1.82 (1.2-3.4) K/uL Hunt # (Auto) 1.10 H (0.24-0.82) K/uL Eos # (Auto) 0.03 (0-0.50) K/uL Baso # (Auto) 0.04 (0-0.2) K/uL Immature Gran # (Auto) 0.07 H (0.00-0.02) K/uL Sodium 134 L (136-145) mmol/L Potassium 4.3 (3.5-5.1) mmol/L Chloride 100 (98-107) mmol/L Carbon Dioxide 25 (21-32) mmol/L Anion Gap 9 (3-11) BUN 21 (6-23) mg/dl Creatinine 1.08 (0.6-1.4) mg/dl Est Cr Clr Drug Dosing Not Reportable Est GFR ( Amer) 84.2 ml/min Est GFR (Non-Af Amer) 72.7 ml/min BUN/Creatinine Ratio 19.4 (10-20) Glucose 107 H (70-99(Fasting)) mg/dl Calcium 9.4 (8.5-10.1) mg/dl Total Bilirubin 0.7 (0.2-1.0) mg/dl AST 25 (13-39) U/L ALT 36 (7-52) U/L Alkaline Phosphatase 75 (34-104) U/L Troponin I High Sens 15.5 (0-20) pg/ml Total Protein 7.6 (6.0-8.3) gm/dl Albumin 4.3 (3.4-5.0) gm/dl Globulin 3.3 (2.5-4.0) gm/dl Albumin/Globulin Ratio 1.3 (0.9-2) Lipase 32 (11-82) U/L Imaging Data My Impression: Chest x-ray: Per my interpretation shows bilateral pneumonia left greater than right ECG Data Attestation: I personally reviewed and interpreted this ECG as follows: Additional Comments: Twelve-lead EKG: Per my interpretation shows a paced ventricular rhythm at a rate of 106. No PVCs. Normal QTC. MDM Narrative 62-year-old male presents with some dizziness, difficulty catching his breath, fever and chills as well as a cough. Temperature here today after Tylenol 3 hours ago was 37.9. His chest x-ray shows bilateral pneumonia. At 1 point he was hypoxic with 86% sats on room air. White blood cell count of 16,000. Troponin was negative. The patient was given IV cefepime as well as IV fluids 1 L. Blood pressure was elevated. No additional fluids given. Will be seen by the hospitalist. Impression & Plan Bilateral pneumonia, Hypoxia Discharge Plan Visit Data Chief Complaint: Chest Pain Stated Complaint: CHEST PAIN ED Provider: Flavio Tucker Discharge Problem: Bilateral pneumonia, Hypoxia Patient Disposition: Being Evaluated by Hospitalist Forms Stand Alone Forms: [facility] Prescriptions Prescriptions: No Action Eliquis 5 mg Tablet 5 mg PO BID rosuvastatin [Crestor] 40 mg Tablet 40 mg PO HS oxycodone-acetaminophen [Percocet] 5-325 mg tablet 1 tab PO Q6H PRN (Reason: Pain) losartan [Cozaar] 25 mg Tablet 25 mg PO HS nitroglycerin [Nitrostat] 0.4 mg Tablet, Sublingual 0.4 mg sublingual UD PRN (Reason: Chest Pain) folic acid 1 mg Tablet 1 mg PO HS furosemide [Lasix] 20 mg Tablet 20 mg PO QAM Rx Instructions: MAY TAKE ADDITIONAL TABLET IF NEEDED FOR EDEMA. Multivitamin 50 Plus Tablet 1 tab PO QAM ezetimibe [Zetia] 10 mg Tablet 10 mg PO HS metoprolol tartrate 25 mg tablet 25 mg PO BID omega 4-vhp-eyd-fish oil [Fish Oil] 1,000 mg (120 mg-180 mg) Capsule 1 cap PO BID magnesium oxide 400 mg magnesium Capsule 400 mg PO BID isosorbide mononitrate 60 mg Tablet Extended Release 24 Hr 60 mg PO QAM diltiazem HCl 120 mg Tablet Extended Release 24 Hr 120 mg PO QAM tizanidine 4 mg tablet 4 mg PO TID PRN (Reason: MUSCLE SPASMS) urea 20 % Cream 1 applic TOPICAL BID PRN (Reason: Dry Skin) albuterol sulfate 90 mcg/actuation Hfa Aerosol Inhaler 2 puff INHALATION DIRECTED PRN (Reason: Shortness Of Breath) duloxetine 30 mg capsule,delayed release(DR/EC) 30 mg PO DAILY Referrals Referrals: Rachel Garcia MD [Primary Care Provider] -
[2022-03-15 21:02] LABS: Alanine Aminotransferase 36 U/L (7-52); Albumin Globulin Ratio 1.3 (0.9-2); Albumin Level 4.3 gm/dl (3.4-5.0); Alkaline Phosphatase 75 U/L (34-104); Anion Gap 9 (3-11); Aspartate Aminotransferase 25 U/L (13-39); BUN Creatinine Ratio 19.4 (10-20); Bilirubin,Total 0.7 mg/dl (0.2-1.0); Blood Urea Nitrogen 21 mg/dl (6-23); Calcium 9.4 mg/dl (8.5-10.1); Carbon Dioxide 25 mmol/L (21-32); Chloride 100 mmol/L (98-107); Est GFR (African American) 84.2 ml/min; Est GFR (Non-African American) 72.7 ml/min; Globulin 3.3 gm/dl (2.5-4.0); Glucose 107 mg/dl (70-99(Fasting)); Lipase 32 U/L (11-82); Potassium 4.3 mmol/L (3.5-5.1); Sodium 134 mmol/L (136-145); Total Protein 7.6 gm/dl (6.0-8.3)
[2022-03-15 21:04] LABS: Troponin I High Sensitivity 15.5 pg/ml (0-20)
[2022-03-15 21:22] LABS: Basophils # (auto) 0.04 K/uL (0-0.2); Basophils % (auto) 0.2 %; Eosinophils # (auto) 0.03 K/uL (0-0.50); Eosinophils % (auto) 0.2 %; Hematocrit (blood only) 46.1 % (40.1-51.0); Hemoglobin 15.5 g/dl (14.0-18.0); Immature Granulocytes # (auto) 0.07 K/uL (0.00-0.02); Immature Granulocytes % (auto) 0.4 %; Lymphocytes # (auto) 1.82 K/uL (1.2-3.4); Lymphocytes % (auto) 11.1 %; Mean Corpuscular Hemoglobin 31.1 pg (25.0-34.0); Mean Corpuscular Hgb Conc 33.6 g/dL (32.0-36.0); Mean Corpuscular Volume 92.6 fL (80.0-100.0); Mean Platelet Volume 9.6 fL (9.4-12.4); Monocytes % (auto) 6.7 %; Neutrophils # (auto) 13.32 K/uL (1.4-6.5); Neutrophils % (auto) 81.4 %; Platelet Count 210 K/uL (130-400); RDW Coefficient of Variation 13.2 % (11.5-14.5); RDW Standard Deviation 44.7 fL (36.4-46.3); Red Blood Count 4.98 M/uL (4.63-6.08); White Blood Count 16.38 K/ul (4.8-10.8)
[2022-03-15] MEDS ORDERED: CEFEPIME 2,000 MG/20 ML VIAL IV STA (21:59)
[2022-03-15] MEDS ORDERED: SODIUM CHLORIDE 0.9% 1000ML 1,000 ML IV ONE (21:59)
[2022-03-15 22:14] LABS: Adenovirus PCR Not Detected (NotDetected); Bordetella parapertussis PCR Not Detected (NotDetected); Bordetella pertussis PCR Not Detected (NotDetected); Chlamydia pneumoniae PCR Not Detected (NotDetected); Coronavirus 229E PCR Not Detected (NotDetected); Coronavirus CoV-2 (COVID19)PCR Not Detected (NotDetected); Coronavirus HKU1 PCR Not Detected (NotDetected); Coronavirus NL63 PCR Not Detected (NotDetected); Coronavirus OC43PCR Not Detected (NotDetected); Human Metapneumovirus PCR Not Detected (NotDetected); Influenza A PCR Not Detected (NotDetected); Influenza B PCR Not Detected (NotDetected); Mycoplasma pneumoniae PCR Not Detected (NotDetected); Parainfluenza Virus 1 PCR Not Detected (NotDetected); Parainfluenza Virus 2 PCR Not Detected (NotDetected); Parainfluenza Virus 3 PCR Not Detected (NotDetected); Parainfluenza Virus 4 PCR Not Detected (NotDetected); Respiratory Syncytial VirusPCR Not Detected (NotDetected); Rhinovirus/Enterovirus PCR Not Detected (NotDetected)
[2022-03-15] MEDS ORDERED: HYDROmorphone INJ 0.5 MG/0.5 ML SYR IV STA (22:34)
[2022-03-15] MEDS ORDERED: DOXYCYCLINE HYCLATE 100 MG in DEXTROSE 5% 100 ML IV STA (22:37)
[2022-03-16] MEDS ORDERED: ACETAMINOPHEN 325 MG TAB PO PRN (00:55)
[2022-03-16] MEDS ORDERED: HYDROmorphone INJ 0.5 MG/0.5 ML SYR IV PRN (00:55)
[2022-03-16] MEDS ORDERED: POLYETHYLENE (MIRALAX) 17 GM PACK PO PRN (00:55)
[2022-03-16] MEDS ORDERED: UREA 20% TOP PRN (00:55)
[2022-03-16] MEDS ORDERED: NITROGLYCERIN SL 0.4 MG/TAB TAB SL PRN ×2 (00:55)
[2022-03-16] MEDS ORDERED: ALBUTEROL HFA 8 GM INHALER INH PRN (00:55)
[2022-03-16] MEDS ORDERED: LORazepam 1 MG in SYRINGE 0 ML IV PRN (00:56)
[2022-03-16] MEDS ORDERED: LORazepam 3 MG in SYRINGE 0 ML IV PRN (00:56)
[2022-03-16] MEDS ORDERED: Ativan IV Alcohol Withdrawal--Active Protocol IV PRN (00:56)
[2022-03-16] MEDS ORDERED: GABAPENTIN 1200MG ALCOHOL WITHDRAWAL LOAD PO STA (00:56)
[2022-03-16] MEDS ORDERED: LORazepam 2 MG in SYRINGE 0 ML IV PRN (00:56)
[2022-03-16] MEDS ORDERED: GABAPENTIN 600 MG TAB PO ONE (00:56)
--- NOTE | 2022-03-16 01:25 | History and Physical Report ---
DATE OF ADMISSION: 03/15/2022. CHIEF COMPLAINT: Chest pain, low-grade fever, cough. HISTORY OF PRESENT ILLNESS: A 62-year-old male with past medical history significant for history of ectopic atrial tachycardia, status post ablation in 2006; history of atrial flutter, status post ablation in 2010 and 2012; history of paroxysmal atrial fibrillation, status post pulmonary vein isolation procedure in November 2019; history of Mobitz type I AV conduction disease, status post pacemaker; history of mitral valve disease, status post mitral valve repair; history of coronary artery disease, status post CABG; history of DVT and PE; history of morbid obesity; history of prediabetes; hyperlipidemia; hypertension; dermatofibroma; history of right nephrectomy in 2003 for renal cancer. Presents with since 4:00 p.m. not feeling well, having low-grade fever, cough, dizziness, neck pain, has chronic back pain and also chest pain, which prompted them to come to the ER. In the ER, he was slightly tachycardic,temperature of 37.9, white count was 16. Lactate was 3.7.Repeat lactic normalized . Chest x-ray, possible pneumonia. The patient requested for pain medication for his back pain and headache. Denies any blurred visions, no runny nose, no sore throat. Appetite is down. Currently not short of breath. Has some dry heaves. No abdominal pain. Normal bowel and bladder movements. Not able to ambulate because of dizziness today. ALLERGIES: No known drug allergies. PAST MEDICAL HISTORY: As mentioned above. PAST SURGICAL HISTORY: Ablation of heart for dysrhythmias, cardiac catheterization, 40% mid LAD lesion, colonoscopies, CABG, electrophysiology evaluation and ablation of SVT, recorder implant, pacemaker implant, right nephrectomy, repair of nasal septum, status post mitral valve repair, treatment of extensive retinopathy with photocoagulation. MEDICATIONS: Albuterol 2 puffs inhalation p.r.n., diltiazem 120 mg p.o. a.m., duloxetine 30 mg p.o. daily, Eliquis 5 mg p.o. b.i.d., Zetia 10 mg p.o. at bedtime, folic acid 1 mg p.o. at bedtime, Lasix 20 mg p.o. daily, isosorbide mononitrate 60 mg p.o. a.m., Cozaar 25 mg p.o. at bedtime, magnesium oxide 400 mg p.o. b.i.d., metoprolol tartrate 25 mg p.o. b.i.d., multivitamins 1 tablet p.o. a.m., nitroglycerin p.r.n., fish oil 1 capsule p.o. b.i.d., Percocet 1 tablet p.o. q. 6 hours p.r.n., Crestor 40 mg p.o. at bedtime, tizanidine 4 mg p.o. t.i.d. p.r.n. FAMILY HISTORY: Significant for brother has NH at age of 46, MS; sister has brain cancer; maternal grandmother has breast cancer; father of NH at 35. SOCIAL HISTORY: , former smoker, quit in 2001. Alcohol, 3 beers per day, . No drug use. REVIEW OF SYSTEMS: As per HPI. Rest of the review of systems is negative. PHYSICAL EXAMINATION: GENERAL: The patient is morbidly obese, not in acute distress. VITAL SIGNS: Temperature T-max 37.9, pulse 117, respiratory rate 22, blood pressure 129/70, oxygen 96% on room air. HEENT: Pupils equal, round and reactive to light. Oral mucosa moist. NECK: No JVD or neck masses. CARDIOVASCULAR: S1 and S2 heard, tachycardia. No murmurs. RESPIRATORY SYSTEM: Normal AP diameter. No accessory muscle use. No wheezing, no crackles. ABDOMEN: Soft, bowel sounds present. Mild abdominal discomfort. No guarding. No rigidity. No distention. CENTRAL NERVOUS SYSTEM: Cranial nerves II through XII are grossly intact, nonfocal. EXTREMITIES: Bilateral lower extremity chronic edema present, no erythema seen. LABORATORY DATA: WBC 16.3, hemoglobin 15.5, hematocrit 46.1, platelets 210. Sodium 134, potassium 4.3, chloride 100, bicarbonate 25, BUN 21, creatinine 1.08, serum glucose 107, lactate 3.7, calcium 9.4, total bilirubin 0.7, AST 25, ALT 36, alkaline phosphatase 75. Troponin I high sensitivity 15.5. Lipase 32. Respiratory BioFire negative. IMAGING DATA: Chest x-ray, possible left lower lobe pneumonia. EKG: Poor quality data. A ventricular paced rhythm at the rate of 106. ASSESSMENT AND PLAN: This is a 62-year-old male who presents with illness. 1. Ongoing illness, started at 4:00 p.m. with low-grade fever, cough, headache, neck pain, [id number] back pain, Possible sepsis with tachycardia, elevated white count, fever spike, and lactic acid of 3.7, and chest x-ray with possible left lower lobe pneumonia. Empirically started on cefepime and doxycycline. Follow the cultures. IV fluids. Follow the repeat lactic acid. Follow the response. Closely monitor in the med tele. 2. Chest pain and leg pain. CTA chest and doppler negative for any blood clots. Follow serial CE and echo.Consider cardiology consult. 3. History of coronary artery disease, status post coronary artery bypass grafting: Continue his home medication of aspirin, statin, and beta ken withholding parameters , closely monitor. 4. History of deep venous thrombosis and pulmonary embolism, on Eliquis. 5. History of mitral valve disease, status post mitral valve repair. 6. History of chronic diastolic congestive heart failure, holding the Lasix. Getting fluids. Will monitor for any volume overload. 7. History of atrial flutter: Status post ablation. 8. History of ectopic atrial tachycardia: Status post ablation. 9. History of atrial fibrillation, status post pulmonary vein isolation procedure in November 2019. Rate controlled with diltiazem, metoprolol. On Eliquis. Closely monitor. 10. History of Mobitz I heart block: Status post pacemaker. 11. History of hypertension: Diltiazem, losartan, isosorbide mononitrate, metoprolol withholding parameters. 12. Hyperlipidemia: On statin. 13. Morbid obesity: Needs counseling. There is plan for sleep study. 14. Impaired fasting glucose: Follow the HbA1c levels. 15. History of renal carcinoma: Status post right nephrectomy in 2001, has a single kidney. Closely monitor for renal function. 16. Chronic pain: Continue home Percocet. Placed on Dilaudid p.r.n. 17. Deep venous thrombosis prophylaxis: On Eliquis. DISPOSITION: Closely monitor in the med tele. PT/OT prior to discharge. Social service to help with discharge planning. Job ID: [id number] [facility]
[2022-03-16] MEDS ORDERED: MULTI-VITAMIN INFUSION 10 ML, THIAMINE HCL 100 MG, FOLIC ACID 1 MG in SODIUM CHLORIDE 0... IV ONE (01:30)
[2022-03-16] MEDS ORDERED: OPTIRAY 320 500ml IV ONE (01:41)
[2022-03-16] MEDS: tiZANidine HCL 4 MG TABLET PO PRN ×2 (02:15→20:06)
[2022-03-16] MEDS: SODIUM CHLORIDE 0.9% 1000ML 1,000 ML IV SCH ×2 (02:17→11:46)
[2022-03-16] MEDS ORDERED: HYDROmorphone INJ 0.5 MG/0.5 ML SYR IV STA (02:42)
[2022-03-16 06:09] LABS: Hematocrit (blood only) 38.3 % (40.1-51.0); Hemoglobin 13.6 g/dl (14.0-18.0); Mean Corpuscular Hemoglobin 32.1 pg (25.0-34.0); Mean Corpuscular Hgb Conc 35.5 g/dL (32.0-36.0); Mean Corpuscular Volume 90.3 fL (80.0-100.0); Mean Platelet Volume 9.6 fL (9.4-12.4); Platelet Count 173 K/uL (130-400); RDW Coefficient of Variation 13.4 % (11.5-14.5); RDW Standard Deviation 44.3 fL (36.4-46.3); Red Blood Count 4.24 M/uL (4.63-6.08); White Blood Count 22.45 K/ul (4.8-10.8)
[2022-03-16 06:31] LABS: Troponin I High Sensitivity 21.4 pg/ml (0-20)
[2022-03-16 06:49] LABS: Lymphocytes # (manual) 0.67 K/uL (1.2-3.4); Lymphocytes % (manual) 3 %; Monocytes # (manual) 1.35 K/uL (0.24-0.82); Monocytes % (manual) 6 %; Neutrophils # (manual) 20.65 K/uL (1.4-6.5); Neutrophils % (manual) 92 %
[2022-03-16 06:52] LABS: Vitamin B12 339 pg/ml (180-914)
--- NOTE | 2022-03-16 06:57 | Ultrasound Report ---
ULTRASOUND BILATERAL LOWER EXTREMITY VENOUS CLINICAL HISTORY: Leg pain and edema. COMPARISON STUDY: Bilateral lower extremity venous ultrasound dated 12/05/2019. TECHNIQUE: Real-time, grayscale, and color Doppler sonography of the deep veins of the right and left lower extremity was performed from the inguinal crease to the calf. Compression and augmentation wer e utilized. Several vessels could not be compressed due to patient discomfort. FINDINGS: There is no sonographic evidence of deep venous thrombosis identified in the right or left lower extremity. The common femoral, superficial femoral, and popliteal veins are patent and normally compressible bilaterally. The greater saphenous vein and the profunda femoris vein at the junction w ith the common femoral vein are clear in both legs. The visualized calf veins are patent bilaterally. IMPRESSION: There is no sonographic evidence of deep venous thrombosis identified in the right or lef t lower extremity. ACT 112: Negative or not required by law. Electronically signed by: Tristian Briseno M.D. 03/16/2022 6:56 AM
[2022-03-16 07:13] LABS: BUN Creatinine Ratio 17.9 (10-20); Calcium 8.2 mg/dl (8.5-10.1); Creatinine Clr Calc Pharmacy 102.2 ml/min; Est GFR (African American) 86.1 ml/min; Est GFR (Non-African American) 74.3 ml/min; Magnesium 1.5 mg/dl (1.7-2.4); Potassium 5.2 mmol/L (3.5-5.1)
--- NOTE | 2022-03-16 07:47 | XRay Report ---
SINGLE VIEW CHEST CLINICAL HISTORY: Atypical chest pain. FINDINGS: An AP, portable, upright chest radiograph is compared to study dated 08/30/2019. The examina tion is degraded by portable technique and apical lordotic positioning. A 2-lead cardiac pacemaker is unchanged in position. The patient is status post midline sternotomy and cardiac valve surgery. The heart is enlarged. There is mild pulmonary vascular congestion. Scarring/atelectasis is noted at the lung bases. The lungs and pleural spaces are otherwise clear. No pneumothorax is seen. The skeletal s tructures are osteopenic. The bony thorax is grossly intact. IMPRESSION: 1. Cardiomegaly and cardiac pacemaker with mild pulmonary vascular congestion. 2. No airspace consolidation or large pleural effusion is identified ACT 112: Negative or not required by law. Electronically signed by: Tristian Briseno M.D. 03/16/2022 7:46 AM
[2022-03-16 07:50] LABS: Estimated Average Glucose 131 mg/dl; Hemoglobin A1C 6.2 % (4.5-5.6)
[2022-03-16] MEDS ORDERED: MAGNESIUM SULFATE / D5W 1 GM/100 ML BAG IV ONE (08:05)
--- NOTE | 2022-03-16 09:11 | Electrocardiogram Report ---
Test Reason : Blood Pressure : / mmHG Vent. Rate : 106 BPM Atrial Rate : 106 BPM P-R Int : 000 ms QRS Dur : 142 ms QT Int : 366 ms P-R-T Axes : 000 053 123 degrees QTc Int : 486 ms Poor data quality, interpretation may be adversely affected Ventricular-paced rhythm Abnormal ECG When compared with ECG of 30-AUG-2019 12:57, Vent. rate has increased BY 36 BPM Confirmed by Javad Rodgers ([id number]) on 03/16/2022 9:11:14 AM Referred By: REFERRED SELF Confirmed By:Javad Rodgers
--- NOTE | 2022-03-16 09:11 | Electrocardiogram Report ---
Test Reason : Blood Pressure : / mmHG Vent. Rate : 103 BPM Atrial Rate : 103 BPM P-R Int : 186 ms QRS Dur : 148 ms QT Int : 390 ms P-R-T Axes : -29 033 104 degrees QTc Int : 510 ms Atrial-sensed ventricular-paced rhythm Abnormal ECG When compared with ECG of 15-MAR-2022 20:17, Vent. rate has decreased BY 3 BPM Confirmed by Javad Rodgers ([id number]) on 03/16/2022 9:10:59 AM Referred By: REFERRED SELF Confirmed By:Javad Rodgers
[2022-03-16] MEDS: THIAMINE HCL 100 MG TAB PO SCH (09:18)
[2022-03-16] MEDS: dilTIAZem HCL 120 MG CAPCR PO SCH (09:19)
[2022-03-16] MEDS: FOLIC ACID 1 MG TAB PO SCH ×2 (09:19→20:05)
[2022-03-16] MEDS: ASPIRIN 81 MG ECTAB PO SCH (09:19)
[2022-03-16] MEDS: GABAPENTIN 600 MG TAB PO SCH ×3 (09:19→20:07)
[2022-03-16] MEDS: CEROVITE ADV FORMULA TAB PO SCH (09:19)
[2022-03-16] MEDS: DULoxetine HCL 30 MG CAP PO SCH (09:19)
[2022-03-16] MEDS: METOPROLOL TARTRATE 25 MG TAB PO SCH ×2 (09:19→20:05)
[2022-03-16] MEDS: APIXABAN 5 MG TABLET PO SCH ×2 (09:19→20:05)
[2022-03-16] MEDS: MAGNESIUM OXIDE 400 MG TAB PO SCH ×2 (09:19→20:05)
[2022-03-16] MEDS: ISOSORBIDE MONO EXTENDED REL 60 MG TABCR PO SCH (09:19)
--- NOTE | 2022-03-16 09:22 | CT Scan Report ---
CT angio chest PE protocol CLINICAL HISTORY: PE TECHNIQUE: Multidetector row helical CT of the chest was performed with angiographic protocol. Torres l and sagittal reformations were obtained. Coronal and sagittal MIPS were obtained from the axial phylicia a set and were submitted for review. Automated dose lowering techniques and/or adjustment according to patient size were utilized for this exam. CT DOSE: 909.68 mGy.cm Comparison: Comparison is made to CT chest 08/09/2010 FINDINGS: Lungs and pleura: Mild atelectatic versus scarring changes are seen. There is no evidence of previous ly noted right lower lung nodule. Heart and pericardium: Mitral valve prosthesis is seen. Biatrial enlargement is seen. Vessels: No evidence of pulmonary embolism. The pulmonary trunk measures 41 mm in diameter. Mediastinum and mandi: Subcentimeter lymph nodes are seen. Chest wall and lower neck: Unremarkable. Abdomen: Unremarkable. Bones: Degenerative changes in the thoracic spine. Median sternotomy wires are seen. IMPRESSION: 1. No evidence of pulmonary embolism. 2. Atelectasis versus scarring and pulmonary hypertension noted. ACT 112: Negative or not required by law. Electronically signed by: Will Hou M.D. 03/16/2022 9:19 AM
[2022-03-16] MEDS: cefTRIAXone SODIUM 2,000 MG in DEXTROSE 5% 50 ML IV SCH (09:24)
[2022-03-16] MEDS: DOXYCYCLINE HYCLATE 100 MG in DEXTROSE 5% 100 ML IV SCH ×2 (11:46→23:50)
--- NOTE | 2022-03-16 13:03 | Hospitalist Progress Note ---
Date of Service March 16, 2022 Assessment & Plan (1) Sepsis: Plan: Presented with cough, fever, chest pain, muscle pains, nausea, vomiting Met SIRS criteria with tachycardia, RR>20, leukocytosis CT PE and Dopplers were negative for PE CT PE noted atelectasis vs scarring Possible pneumonia Due to reported worsening of chronic back pain and recent fall, CT lumbar was obtained which only noted degenerative changes, no acute fracture. Follow up blood cultures RN advised to obtain UA/reflex culture Tickborne labs Continue ceftriaxone and doxycycline EKG and trop do not indicate ACS -History of coronary artery disease, status post coronary artery bypass grafting: -History of mitral valve disease, status post mitral valve repair -Chronic diastolic congestive heart failure Continue his home medication of aspirin, statin, and beta ken withholding parameters , closely monitor. Continue to hold lasix for today Continue History of deep venous thrombosis and pulmonary embolism Continue Eliquis. -History of atrial flutter s/p ablation. History of ectopic atrial tachycardia s/p ablation. History of Mobitz I heart block s/p pacemaker. History of atrial fibrillation s/p pulmonary vein isolation procedure in November 2019. Rate controlled with diltiazem, metoprolol. On Eliquis. Continue to monitor -Hypertension: BP was mildly elevated Continue home losartan and monitor closely -Morbid obesity: -Prediabetes A1c is 6.2 Lifestyle modification education There is plan for sleep study. -History of renal carcinoma: s/p right nephrectomy in 2001, has a single kidney. Closely monitor for renal function. Replete hypomagnesemia -Chronic pain: Continue oxycodone prn Deep venous thrombosis prophylaxis: On Eliquis. Admission and Anticipated Discharge Date Admission Date: March 15, 2022 Subjective Patient seen and examined Reports he started having headache, chills, fever and generalized aches ye sterday evening He reported he has been having cough for the past 2 weeks or more Reports shortness of breath is resolved Reported he slipped on snow/ice last week and has been having worsening chronic back pain since Reports RLE paresthesia that is chronic,unchanged Reports nausea/vomiting yesterday has resolved Reports he has lower chest/upper abd ache that is improving Denied any diarrhea, dysuria, freq, urgency Physical Exam Constitutional: + well hydrated and + obese; no acute distress Eyes: PERRL, conjunctivae normal, anicteric sclerae ENMT: external ear and nose normal, oropharynx normal Respiratory: normal respiratory effort, lungs clear to auscultation Cardiovascular: Rate/Rhythm: regular rate and regular rhythm S1 S2 Gastrointestinal (Abdomen): normal bowel sounds, soft, nontender, no hepatosplenomegaly Musculoskeletal: Trace pedal edema Neurologic: PERRL, EOMI, accommodation nl, no face palsy, no dysarthria Psychiatric: A+Ox3, euthymic affect Results & Data Results & Data ([facility]) Vital Signs (Past 12 Hours) Vital Signs Temp Pulse Pulse Resp BP Pulse Ox O2 Del Method 03/16/22 12:40 37.7 C H 87 18 113/75 94 Room Air 03/16/22 08:00 86 03/16/22 08:15 37.3 C 92 H 19 148/73 H 94 Room Air 03/16/22 03:00 37.2 C 101 H 18 147/81 H 95 Room Air 03/16/22 01:18 Room Air 03/16/22 01:18 36.8 C 117 H 18 125/74 93 Room Air Laboratory Results Abnormal lab results 03/15/22 03/15/22 03/15/22 Range/Units Unknown Unknown Unknown WBC 16.38 H (4.8-10.8) K/ul RBC (4.63-6.08) M/uL Hgb (14.0-18.0) g/dl Hct (40.1-51.0) % Neut # (Auto) 13.32 H (1.4-6.5) K/uL [place] # (Auto) 1.10 H (0.24-0.82) K/uL Immature Gran # (Auto) 0.07 H (0.00-0.02) K/uL Neutrophils # (Manual) (1.4-6.5) K/uL Lymphocytes # (Manual) (1.2-3.4) K/uL Monocytes # (Manual) (0.24-0.82) K/uL Sodium 134 L (136-145) mmol/L Potassium (3.5-5.1) mmol/L Glucose 107 H (70-99(Fasting)) mg/dl Hemoglobin A1c (4.5-5.6) % Lactate 3.7 H* (0.4-2.0) mmol/L Calcium (8.5-10.1) mg/dl Magnesium (1.7-2.4) mg/dl Troponin I High Sens (0-20) pg/ml Procalcitonin (0-0.5) ng/ml 03/16/22 03/16/22 03/16/22 Range/Units 05:42 05:42 05:42 WBC 22.45 H (4.8-10.8) K/ul RBC 4.24 L (4.63-6.08) M/uL Hgb 13.6 L (14.0-18.0) g/dl Hct 38.3 L (40.1-51.0) % Neut # (Auto) (1.4-6.5) K/uL [place] # (Auto) (0.24-0.82) K/uL Immature Gran # (Auto) (0.00-0.02) K/uL Neutrophils # (Manual) 20.65 H (1.4-6.5) K/uL Lymphocytes # (Manual) 0.67 L (1.2-3.4) K/uL Monocytes # (Manual) 1.35 H (0.24-0.82) K/uL Sodium 134 L (136-145) mmol/L Potassium 5.2 H D (3.5-5.1) mmol/L Glucose (70-99(Fasting)) mg/dl Hemoglobin A1c 6.2 H (4.5-5.6) % Lactate (0.4-2.0) mmol/L Calcium 8.2 L (8.5-10.1) mg/dl Magnesium 1.5 L (1.7-2.4) mg/dl Troponin I High Sens 21.4 H (0-20) pg/ml Procalcitonin (0-0.5) ng/ml 03/16/22 Range/Units 11:00 WBC (4.8-10.8) K/ul RBC (4.63-6.08) M/uL Hgb (14.0-18.0) g/dl Hct (40.1-51.0) % Neut # (Auto) (1.4-6.5) K/uL [place] # (Auto) (0.24-0.82) K/uL Immature Gran # (Auto) (0.00-0.02) K/uL Neutrophils # (Manual) (1.4-6.5) K/uL Lymphocytes # (Manual) (1.2-3.4) K/uL Monocytes # (Manual) (0.24-0.82) K/uL Sodium (136-145) mmol/L Potassium (3.5-5.1) mmol/L Glucose (70-99(Fasting)) mg/dl Hemoglobin A1c (4.5-5.6) % Lactate (0.4-2.0) mmol/L Calcium (8.5-10.1) mg/dl Magnesium (1.7-2.4) mg/dl Troponin I High Sens (0-20) pg/ml Procalcitonin 4.02 H (0-0.5) ng/ml
--- NOTE | 2022-03-16 13:49 | CT Scan Report ---
CT lumbar spine wo con CLINICAL HISTORY: Low back pain, reports fall recently, Fever TECHNIQUE: Multidetector row helical CT of the lumbar spine was performed without administration of i ntravenous contrast. Coronal and sagittal reformations were obtained. Automated dose lowering techniq ues and/or adjustment according to patient size were utilized for this exam. CT DOSE: 802.94 mGy.cm Comparison: Comparison is made to MRI lumbar spine 02/07/2017 FINDINGS: For counting purposes, the last complete intervertebral disc space is considered L5-S1. No acute fractures are identified. Chronic minimal loss of height of T12 is noted. Degenerative muñoz es are seen in the lumbar spine. Right nephrectomy surgical changes are seen. Surrounding soft tissue s are unremarkable. IMPRESSION: No evidence of acute fracture. There is multilevel degenerative change. ACT 112: Negative or not required by law. Electronically signed by: Will Hou M.D. 03/16/2022 1:47 PM
[2022-03-16] MEDS: oxyCODONE/ACETAMINOPHEN 5mg/325mg TAB PO PRN (16:47)
[2022-03-16 17:08] LABS: Lyme Ab IgG w/WB Rflx Negative (Negative); Lyme Ab IgM w/WB Rflx Negative (Negative)
[2022-03-16 19:06] LABS: Appearance Urine Clear (Clear); Bacteria Urine Automated Negative (Negative); Bilirubin Urine Negative (Negative); Blood Urine Negative (Negative); Cast Urine Automated 0 /lpf (0-5); Color Urine Dark Yellow; Glucose Urine UA Negative (Negative); Ketones Urine Negative (Negative); Leukocyte Esterase Urine Negative (Negative); Nitrite Urine Negative (Negative); Protein Urine Trace (Negative); RBC Urine Automated 0-4 /hpf (0-4); Specific Gravity Urine 1.021 (1.000-1.030); Urobilinogen Urine Negative (Negative)
[2022-03-16] MEDS: LOSARTAN POTASSIUM 25 MG TAB PO SCH (20:04)
[2022-03-16] MEDS: EZETIMIBE 10 MG TABLET PO SCH (20:05)
[2022-03-16] MEDS: ROSUVASTATIN CALCIUM 20 MG TAB PO SCH (20:06)
[2022-03-17 04:57] LABS: Hematocrit (blood only) 35.7 % (40.1-51.0); Mean Corpuscular Hemoglobin 31.2 pg (25.0-34.0); Mean Corpuscular Hgb Conc 33.6 g/dL (32.0-36.0); Mean Corpuscular Volume 92.7 fL (80.0-100.0); Mean Platelet Volume 9.3 fL (9.4-12.4); Platelet Count 127 K/uL (130-400); RDW Standard Deviation 47.6 fL (36.4-46.3); Red Blood Count 3.85 M/uL (4.63-6.08)
[2022-03-17 05:25] LABS: Albumin Globulin Ratio 1.1 (0.9-2); Albumin Level 3.2 gm/dl (3.4-5.0); BUN Creatinine Ratio 16.8 (10-20); Bilirubin,Total 0.5 mg/dl (0.2-1.0); Calcium 8.3 mg/dl (8.5-10.1); Creatinine Clr Calc Pharmacy 101.8 ml/min; Est GFR (African American) 85.2 ml/min; Est GFR (Non-African American) 73.5 ml/min; Globulin 2.9 gm/dl (2.5-4.0); Magnesium 1.9 mg/dl (1.7-2.4); Phosphorus 2.5 mg/dl (2.5-4.9); Potassium 4.1 mmol/L (3.5-5.1); Total Protein 6.1 gm/dl (6.0-8.3)
[2022-03-17] MEDS: GABAPENTIN 600 MG TAB PO SCH ×3 (06:14→23:03)
--- NOTE | 2022-03-17 07:08 | Electrocardiogram Report ---
Test Reason : Blood Pressure : / mmHG Vent. Rate : 088 BPM Atrial Rate : 088 BPM P-R Int : 250 ms QRS Dur : 148 ms QT Int : 390 ms P-R-T Axes : 018 049 140 degrees QTc Int : 471 ms Atrial-sensed ventricular-paced rhythm with prolonged AV conduction fusion beats Some sinus rhythm with 1st degree AV block Abnormal ECG When compared with ECG of 16-MAR-2022 02:56, Vent. rate has decreased BY 15 BPM Confirmed by Flo Jacome ([id number]) on 03/17/2022 7:08:36 AM Referred By: REFERRED SELF Confirmed By:David Jacome
--- NOTE | 2022-03-17 07:14 | Electrocardiogram Report ---
Test Reason : Blood Pressure : / mmHG Vent. Rate : 072 BPM Atrial Rate : 072 BPM P-R Int : 310 ms QRS Dur : 162 ms QT Int : 432 ms P-R-T Axes : 052 046 100 degrees QTc Int : 473 ms Atrial-sensed ventricular-paced rhythm with prolonged AV conduction with frequent AV dual-paced compl exes fusion beats Abnormal ECG When compared with ECG of 16-MAR-2022 18:41, (unconfirmed) Vent. rate has decreased BY 16 BPM Confirmed by Flo Jacome ([id number]) on 03/17/2022 7:14:14 AM Referred By: REFERRED SELF Confirmed By:David Jacome
[2022-03-17] MEDS: APIXABAN 5 MG TABLET PO SCH ×2 (08:17→21:23)
[2022-03-17] MEDS: cefTRIAXone SODIUM 2,000 MG in DEXTROSE 5% 50 ML IV SCH (08:17)
[2022-03-17] MEDS: ASPIRIN 81 MG ECTAB PO SCH (08:17)
[2022-03-17] MEDS: dilTIAZem HCL 120 MG CAPCR PO SCH (08:18)
[2022-03-17] MEDS: MAGNESIUM OXIDE 400 MG TAB PO SCH ×2 (08:18→21:24)
[2022-03-17] MEDS: FOLIC ACID 1 MG TAB PO SCH ×2 (08:18→21:22)
[2022-03-17] MEDS: ISOSORBIDE MONO EXTENDED REL 60 MG TABCR PO SCH (08:18)
[2022-03-17] MEDS: DULoxetine HCL 30 MG CAP PO SCH (08:18)
[2022-03-17] MEDS: CEROVITE ADV FORMULA TAB PO SCH (08:19)
[2022-03-17] MEDS: THIAMINE HCL 100 MG TAB PO SCH (08:19)
[2022-03-17] MEDS: METOPROLOL TARTRATE 25 MG TAB PO SCH ×2 (08:19→21:25)
[2022-03-17] MEDS: oxyCODONE/ACETAMINOPHEN 5mg/325mg TAB PO PRN (10:17)
[2022-03-17] MEDS: DOXYCYCLINE HYCLATE 100 MG in DEXTROSE 5% 100 ML IV SCH ×2 (11:37→22:25)
--- NOTE | 2022-03-17 11:49 | Hospitalist Progress Note ---
Date of Service March 17, 2022 Assessment & Plan (1) Sepsis: (2) Acute pain of right lower extremity: (3) Hypoxia: (4) Chest pain: (5) Atrial flutter: Plan Presented with cough, fever, chest pain, muscle pains, nausea, vomiting Met SIRS criteria with tachycardia, RR>20, leukocytosis CT PE and Dopplers were negative for PE CT PE noted atelectasis vs scarring Possible pneumonia There is no pneumonia on imaging, however, patient previously reported a cough x 2 weeks and was septic on arrival Tick panel was negative. [employer] respiratory panel was clear. Blood cultures are negative. Urinalysis was clear of infection. Since admission patient feels better but is still reporting headache, chest discomfort, fever and leg pain with swelling on the left side Cont antibiotics for now. No DVT on us imaging May be a result of trauma sustained by falling on ice last week. Vasculitis/phlebitis are also possibilities. Will order ESR, CRP and CK Will give him NSAID therapy for a few doses to see if his leg improves. Noted that he is on apixaban and will monitor for overt bleeidng. Due to reported worsening of chronic back pain and recent fall, CT lumbar was obtained which only noted degenerative changes, no acute fracture. CAD: chronic, stable. s/p CABG. Cont current medical management. -History of mitral valve disease, status post mitral valve repair -Chronic diastolic congestive heart failure-compensated. Continue his home medication of aspirin, statin, and beta ken withholding parameters , closely monitor. Continue to hold lasix History of deep venous thrombosis and pulmonary embolism but lower extremity dopplers this admission were negative. -History of atrial flutter s/p ablation-continues on Eliquis History of ectopic atrial tachycardia s/p ablation. History of Mobitz I heart block s/p pacemaker. History of atrial fibrillation s/p pulmonary vein isolation procedure in November 2019. Rate controlled with diltiazem, metoprolol. On Eliquis. Continue to monitor -Hypertension: BP was mildly elevated Continue home losartan and monitor closely -Morbid obesity: -Prediabetes A1c is 6.2 Lifestyle modification education There is plan for sleep study as outpatient. -History of renal carcinoma: s/p right nephrectomy in 2001, has a single kidney. Closely monitor for renal function. Replete hypomagnesemia -Chronic pain: Continue oxy at night. Deep venous thrombosis prophylaxis: On Eliquis. Yun [place], DO [facility] Hospitalist Admission and Anticipated Discharge Date Admission Date: March 15, 2022 Subjective Patient seen and examined Reports he started having headache, chills, fever and generalized aches two days ago Cough per prior notes, but patient states that was not a big issue for him Denies SOB Pt denies any recent trauma to me today, but prior hospitalist notes state that he slipped on snow/ice last week and has been having worsening chronic back pain since N/V present on admission has resolved and he is tolerating PO Reports he has lower chest/upper abd ache that is improving, worse when he is febrile Generally feels better overall States he hasn't walked around because "they told me not to get out of bed" Review of Systems Review of Systems: All systems were reviewed and negative except as indicated on subjective above. Physical Exam Physical Exam: CONSTITUTIONAL: morbid obesity, vitals as above, generally well-appearing, NAD EYES: normal conjunctivae, no scleral icterus ENT: external ear and nose normal, oropharynx clear, MMM NECK: trachea midline, no inguinal lymphadenopathy RESPIRATORY: clear to auscultation bilaterally, no crackles, rales or wheezes, normal respiratory effort CARDIOVASCULAR: regular rate and rhythm, S1 and 2 heard without murmurs, gallops or rubs, no JVD, no peripheral edema CHEST: +pacemaker GASTROINTESTINAL: soft, nontender, ND, no guarding : no scrotal swelling, no testicular swelling or warmth present. No over hernia or mass palpable. MUSCULOSKELETAL: strength 5/5 throughout, head is normocephalic and atraumatic SKIN: warm and dry, no rashes. temp of skin much warmer on medial LLE starting at his medial left thigh when compared to the RLE. The lateral left thigh is normal temperature. Where there is warmth there is also significant TTP. NEUROLOGIC: CN 2-12 grossly intact, no sensory deficit, normal cognition, normal speech, no tremor PSYCHIATRIC: alert cooperative and oriented to person, place and time. Euthymic mood, makes good eye contact, language grossly intact, recent and remote memory grossly intact. LYMPHATIC: no inguinal lymphadenopathy Results & Data Results & Data ([facility]) Vital Signs (Past 12 Hours) Vital Signs Temp Pulse Pulse Resp BP Pulse Ox Pulse Ox 03/17/22 07:00 36.9 C 70 18 106/66 95 03/17/22 03:57 37.7 C H 03/17/22 02:51 38.2 C H 85 17 134/68 94 03/17/22 00:55 94 03/17/22 00:00 66 O2 Del Method O2 Del Method 03/17/22 07:00 Room Air 03/17/22 03:57 03/17/22 02:51 Room Air 03/17/22 00:55 Room Air 03/17/22 00:00 Laboratory Results Short CBC 03/17/22 Range/Units 04:12 WBC 12.90 H (4.8-10.8) K/ul Hgb 12.0 L (14.0-18.0) g/dl Hct 35.7 L (40.1-51.0) % Plt Count 127 L (130-400) K/uL BMP 03/17/22 04:12 Sodium 132 L Potassium 4.1 D Chloride 102 Carbon Dioxide 23 BUN 18 Creatinine 1.07 Glucose 116 H Calcium 8.3 L Cardiac Enzymes 03/16/22 Range/Units 13:11 Total Creatine Kinase 174 (30-223) U/L Liver Function 03/17/22 Range/Units 04:12 Total Bilirubin 0.5 (0.2-1.0) mg/dl AST 20 (13-39) U/L ALT 19 (7-52) U/L Alkaline Phosphatase 53 (34-104) U/L Albumin 3.2 L (3.4-5.0) gm/dl Urine 03/16/22 Range/Units 18:45 Urine Color Dark Yellow Urine Appearance Clear (Clear) Urine pH 6.0 (4.5-7.5) Ur Specific [place] 1.021 (1.000-1.030) Urine Protein Trace H (Negative) Urine Glucose (UA) Negative (Negative) Medications Administered Current Inpatient Medications Acetaminophen (Acetaminophen 325 Mg Tab) 650 mg PO Q4H PRN PRN Reason: Pain or Fever Stop: 04/15/22 00:54 Last Admin: 03/17/22 03:08 Dose: 650 mg Albuterol (Albuterol Hfa 8 Gm Inhaler) 2 puffs INH Q4H PRN PRN Reason: Shortness Of Breath Stop: 04/15/22 00:54 Apixaban (Apixaban 5 Mg Tablet) 5 mg PO BID TRUDI Stop: 04/15/22 08:59 Last Admin: 03/17/22 08:17 Dose: 5 mg Aspirin (Aspirin 81 Mg Ectab) 81 mg PO DAILY TRUDI Stop: 04/15/22 08:59 Last Admin: 03/17/22 08:17 Dose: 81 mg Diltiazem HCl (Diltiazem Hcl 120 Mg Capcr) 120 mg PO QAM TRUDI Stop: 04/15/22 08:59 Last Admin: 03/17/22 08:18 Dose: 120 mg Duloxetine HCl (Duloxetine Hcl 30 Mg Cap) 30 mg PO DAILY TRUDI Stop: 04/15/22 08:59 Last Admin: 03/17/22 08:18 Dose: 30 mg Ezetimibe (Ezetimibe 10 Mg Tablet) 10 mg PO HS TRUDI Stop: 04/15/22 20:59 Last Admin: 03/16/22 20:05 Dose: 10 mg Folic Acid (Folic Acid 1 Mg Tab) 1 mg PO HS TRUDI Stop: 04/15/22 20:59 Last Admin: 03/16/22 20:05 Dose: 1 mg Folic Acid (Folic Acid 1 Mg Tab) 1 mg PO QAM TRUDI Stop: 04/15/22 08:59 Last Admin: 03/17/22 08:18 Dose: 1 mg Gabapentin (Gabapentin 600 Mg Tab) 600 mg PO Q8H [facility] Stop: 03/17/22 14:01 Last Admin: 03/17/22 06:14 Dose: Not Given Gabapentin (Gabapentin 600 Mg Tab) 600 mg PO Q12H TRUDI Stop: 03/18/22 12:01 Gabapentin (Gabapentin 600 Mg Tab) 600 mg PO Q24H TRUDI Stop: 03/19/22 12:01 Ceftriaxone Sodium 2,000 mg/ (Dextrose) 70 mls @ 100 mls/hr IV DAILY TRUDI; Protocol Stop: 03/23/22 08:59 Last Infusion: 03/17/22 09:00 Dose: Infused Doxycycline Hyclate 100 mg/ (Dextrose) 110 mls @ 50 mls/hr IV Q12H TRUDI Stop: 03/23/22 10:59 Last Admin: 03/17/22 11:37 Dose: 50 mls/hr Lorazepam 3 mg/ Syringe 3 mls @ 2 mls/min IV ONCE PRN; Protocol PRN Reason: EtOH Withdrawal AWSS Score 10 & above Lorazepam 1 mg/ Syringe 1 mls @ 2 mls/min IV UD PRN; Protocol PRN Reason: EtOH Withdrawal AWSS Score 6,7 Stop: 04/15/22 00:55 Lorazepam 2 mg/ Syringe 2 mls @ 2 mls/min IV UD PRN; Protocol PRN Reason: EtOH Withdrawal AWSS Score 8,9 Stop: 04/15/22 00:55 Isosorbide Mononitrate (Isosorbide [place] Extended Rel 60 Mg Tabcr) 60 mg PO QAM [facility] Stop: 04/15/22 08:59 Last Admin: 03/17/22 08:18 Dose: 60 mg Losartan Potassium (Losartan Potassium 25 Mg Tab) 25 mg PO HS [facility] Stop: 04/15/22 20:59 Last Admin: 03/16/22 20:04 Dose: 25 mg Magnesium Oxide (Magnesium Oxide 400 Mg Tab) 400 mg PO BID [facility] Stop: 04/15/22 08:59 Last Admin: 03/17/22 08:18 Dose: 400 mg Metoprolol Tartrate (Metoprolol Tartrate 25 Mg Tab) 25 mg PO BID [facility] Stop: 04/15/22 08:59 Last Admin: 03/17/22 08:19 Dose: 25 mg Multivitamins/Minerals (Cerovite Adv Formula Tab) [facility] [place] Stop: 04/15/22 08:59 Last Admin: 03/17/22 08:19 Dose: 1 tab Nitroglycerin (Nitroglycerin Sl 0.4 Mg/Tab Tab) 0.4 mg SL UD PRN PRN Reason: Chest Pain Stop: 04/15/22 00:54 Oxycodone/Acetaminophen (Oxycodone/Acetaminophen 5mg/325mg Tab) 1 tab PO Q6H PRN PRN Reason: Pain Stop: 03/30/22 00:54 Last Admin: 03/17/22 10:17 Dose: 1 tab Polyethylene Glycol (Polyethylene (Miralax) 17 Gm Pack) 17 gm PO DAILY PRN PRN Reason: Constipation Stop: 04/15/22 00:54 Rosuvastatin Calcium (Rosuvastatin Calcium 20 Mg Tab) 40 mg PO HS [facility] Stop: 04/15/22 20:59 Last Admin: 03/16/22 20:06 Dose: 40 mg Thiamine HCl (Thiamine Hcl 100 Mg Tab) 100 [facility] [place] Stop: 04/15/22 08:59 Last Admin: 03/17/22 08:19 Dose: 100 mg Tizanidine HCl (Tizanidine Hcl 4 Mg Tablet) 4 mg PO TID PRN PRN Reason: MUSCLE SPASMS Stop: 04/15/22 00:54 Last Admin: 03/16/22 20:06 Dose: 4 mg
[2022-03-17 15:05] LABS: C Reactive Protein 17.55 mg/dl (0-0.5)
[2022-03-17] MEDS: KETOROLAC TROMETHAMINE 15 MG/ML VIAL IV SCH ×2 (15:08→22:25)
[2022-03-17] MEDS: ROSUVASTATIN CALCIUM 20 MG TAB PO SCH (21:23)
[2022-03-17] MEDS: LOSARTAN POTASSIUM 25 MG TAB PO SCH (21:24)
[2022-03-17] MEDS: EZETIMIBE 10 MG TABLET PO SCH (21:24)
[2022-03-18] MEDS ORDERED: CALCIUM CARBONATE 500 MG CHEWABLE TAB PO PRN (01:29)
[2022-03-18] MEDS: oxyCODONE/ACETAMINOPHEN 5mg/325mg TAB PO PRN ×2 (04:05→09:45)
[2022-03-18] MEDS: tiZANidine HCL 4 MG TABLET PO PRN ×2 (04:47→09:29)
[2022-03-18] MEDS: KETOROLAC TROMETHAMINE 15 MG/ML VIAL IV SCH (06:13)
[2022-03-18] MEDS: MAGNESIUM OXIDE 400 MG TAB PO SCH (09:29)
[2022-03-18] MEDS: METOPROLOL TARTRATE 25 MG TAB PO SCH (09:29)
[2022-03-18] MEDS: THIAMINE HCL 100 MG TAB PO SCH (09:29)
[2022-03-18] MEDS: DULoxetine HCL 30 MG CAP PO SCH (09:29)
[2022-03-18] MEDS: dilTIAZem HCL 120 MG CAPCR PO SCH (09:29)
[2022-03-18] MEDS: CEROVITE ADV FORMULA TAB PO SCH (09:30)
[2022-03-18] MEDS: FOLIC ACID 1 MG TAB PO SCH (09:30)
[2022-03-18] MEDS: ASPIRIN 81 MG ECTAB PO SCH (09:30)
[2022-03-18] MEDS: APIXABAN 5 MG TABLET PO SCH (09:30)
[2022-03-18] MEDS: ISOSORBIDE MONO EXTENDED REL 60 MG TABCR PO SCH (09:30)
[2022-03-18] MEDS: cefTRIAXone SODIUM 2,000 MG in DEXTROSE 5% 50 ML IV SCH (09:31)
[2022-03-18 09:45] LABS: Basophils # (auto) 0.02 K/uL (0-0.2); Basophils % (auto) 0.2 %; Eosinophils # (auto) 0.17 K/uL (0-0.50); Eosinophils % (auto) 1.5 %; Hematocrit (blood only) 35.7 % (40.1-51.0); Immature Granulocytes # (auto) 0.12 K/uL (0.00-0.02); Immature Granulocytes % (auto) 1.1 %; Lymphocytes # (auto) 1.71 K/uL (1.2-3.4); Mean Corpuscular Hemoglobin 31.4 pg (25.0-34.0); Mean Corpuscular Hgb Conc 33.6 g/dL (32.0-36.0); Mean Corpuscular Volume 93.5 fL (80.0-100.0); Mean Platelet Volume 9.5 fL (9.4-12.4); Monocytes # (auto) 0.99 K/uL (0.24-0.82); Monocytes % (auto) 8.7 %; Neutrophils # (auto) 8.36 K/uL (1.4-6.5); Neutrophils % (auto) 73.5 %; Platelet Count 133 K/uL (130-400); RDW Coefficient of Variation 13.7 % (11.5-14.5); RDW Standard Deviation 46.1 fL (36.4-46.3); Red Blood Count 3.82 M/uL (4.63-6.08); White Blood Count 11.37 K/ul (4.8-10.8)
[2022-03-18 10:04] LABS: Albumin Level 3.2 gm/dl (3.4-5.0); BUN Creatinine Ratio 19.4 (10-20); Bilirubin,Total 0.5 mg/dl (0.2-1.0); C Reactive Protein 10.45 mg/dl (0-0.5); Calcium 8.6 mg/dl (8.5-10.1); Creatinine Clr Calc Pharmacy 100.8 ml/min; Est GFR (African American) 84.2 ml/min; Est GFR (Non-African American) 72.7 ml/min; Globulin 3.1 gm/dl (2.5-4.0); Potassium 4.8 mmol/L (3.5-5.1); Total Protein 6.3 gm/dl (6.0-8.3)
[2022-03-18] MEDS: GABAPENTIN 600 MG TAB PO SCH (12:10)
--- NOTE | 2022-03-18 13:40 | Discharge Summary ---
Discharge Summary Date of Service March 18, 2022 Notes For Next Care Provider presented with symptoms concerning for vasculitis currently need to rule out GCA, Rheum (Shaheed) contacted and will be placing urgent temporal artery biopsy order for this week patient placed on high dose prednisone and is prediabetic with A1C 6.2 May need blood glucose meter for monitoring or outpatient medication to combat steroid induced hyperglycemia. Medication Changes From Visit NEW prednisone 60mg daily Admission HPI Per Admitting Provider HISTORY OF PRESENT ILLNESS: A 62-year-old male with past medical history significant for history of ectopic atrial tachycardia, status post ablation in 2006; history of atrial flutter, status post ablation in 2010 and 2012; history of paroxysmal atrial fibrillation, status post pulmonary vein isolation procedure in November 2019; history of Mobitz type I AV conduction disease, status post pacemaker; history of mitral valve disease, status post mitral valve repair; history of coronary artery disease, status post CABG; history of DVT and PE; history of morbid obesity; history of prediabetes; hyperlipidemia; hypertension; dermatofibroma; history of right nephrectomy in 2003 for renal cancer. Presents with since 4:00 p.m. not feeling well, having low-grade fever, cough, dizziness, neck pain, has chronic back pain and also chest pain, which prompted them to come to the ER. In the ER, he was slightly tachycardic,temperature of 37.9, white count was 16. Lactate was 3.7.Repeat lactic normalized . Chest x-ray, possible pneumonia. The patient requested for pain medication for his back pain and headache. Denies any blurred visions, no runny nose, no sore throat. Appetite is down. Currently not short of franc ath. Has some dry heaves. No abdominal pain. Normal bowel and bladder movements. Not able to ambulate because of dizziness today. Admission Exam Per Admitting Provider PHYSICAL EXAMINATION: GENERAL: The patient is morbidly obese, not in acute distress. VITAL SIGNS: Temperature T-max 37.9, pulse 117, respiratory rate 22, blood pressure 129/70, oxygen 96% on room air. HEENT: Pupils equal, round and reactive to light. Oral mucosa moist. NECK: No JVD or neck masses. CARDIOVASCULAR: S1 and S2 heard, tachycardia. No murmurs. RESPIRATORY SYSTEM: Normal AP diameter. No accessory muscle use. No wheezing, no crackles. ABDOMEN: Soft, bowel sounds present. Mild abdominal discomfort. No guarding. No rigidity. No distention. CENTRAL NERVOUS SYSTEM: Cranial nerves II through XII are grossly intact, nonfocal. EXTREMITIES: Bilateral lower extremity chronic edema present, no erythema seen. Principal Dx & Hospital Course #1 = Principal Diagnosis (1) Vasculitis: (2) Acute pain of right lower extremity: (3) Chest pain: (4) Paroxysmal A-fib: (5) MTHFR mutation: (6) History of nephrectomy, unilateral: (7) Pulmonary embolism: Plan The patient is a 62-year-old man with a history of coronary vasospasm, coronary artery disease status post CABG history of DVT, prediabetes and hypertension who presented with systemic symptoms including malaise, low-grade fever, mild cough, dizziness, neck pain chronic back pain and also chest discomfort. Daughter also reported prior to arrival he had hands that turned bright white and more painful along with shaking chills. Notably his temperature was 37.9 C, white count was 16 K, lactate was 3.7. Repeat lactate was normalized after IV fluid resuscitation. Initial chest x-ray revealed a possible infiltrate and he was started on broad-spectrum antibiotics for possible pneumonia. He continued to fever and did not feel notably better on the antibiotics. Blood cultures were negative. Cough became minimal. He started to report intermittent blurry visi on but no descriptions of loss of vision such as a shade coming down over his eyes or other field deficits. He did also mention a history of cataracts and he wears glasses. He denied temporal headache or jaw claudication. He cannot elucidate if the blurry vision was acute or not. Further into the hospital stay he developed an acute medial left thigh pain that extended all the way down to his foot. There was mild swelling throughout the entire left leg, but there was no edema or redness to the skin. There was an intense warmth to the medial leg that differed from the lateral left side or the right leg. There was no evidence of cellulitis or contributing lower extremity wound or other skin disruption such and no interdigital fungal infection, for example. CRP was elevated to 17.55 and ESR was 61. He was given three doses of Toradol 15mg IV to help the pain and swelling. Notably his Lasix was held on admission because of the initial concern for sepsis. After the toradol, his inflammatory markers and pain improved. WBC came down to 11.4K and he was fever-free for over 24 hours prior to discharge. Bilateral blood pressures were taken and were similar at time of discharge (130/80). His collection of symptoms was concerning for vasculitis, specifically with concern to rule out giant cell arteritis with the ongoing headache and visual symptoms. He was placed on prednisone 60mg daily and rheumatology was notified. They will contact him after the weekend for a follow-up in one week and will place an urgent referral to surgery for a temporal artery biopsy in the system. In preparation for this, his apixaban was held at discharge until it can safely be restarted post-operatively. I discussed the case with the patient and his who verbalized understanding. I restricted any driving until he can be seen in follow-up, and also recommended that he get his eyesight checked. As this was not thought to be infectious in nature, sepsis was ruled out, and he was not sent home on any antibiotics. Multiple labs were pending at time of discharge to help with the workup of his symptoms. He was discharged in stable condition with close primary care follow up recommended. Discharge Exam CONSTITUTIONAL: morbid obesity, vitals as above, generally well-appearing, NAD EYES: normal conjunctivae, no scleral icterus ENT: external ear and nose normal, oropharynx clear, MMM NECK: trachea midline, no inguinal lymphadenopathy RESPIRATORY: clear to auscultation bilaterally, no crackles, rales or wheezes, normal respiratory effort CARDIOVASCULAR: regular rate and rhythm, S1 and 2 heard without murmurs, gallops or rubs, no JVD, no peripheral edema CHEST: +pacemaker GASTROINTESTINAL: soft, nontender, ND, no guarding : no scrotal swelling, no testicular swelling or warmth present. No over hernia or mass palpable. MUSCULOSKELETAL: strength 5/5 throughout, head is normocephalic and atraumatic SKIN: warm and dry, no rashes. temp of skin much warmer on medial LLE starting at his medial left thigh when compared to the RLE. The lateral left thigh is normal temperature. Where there is warmth there is also significant TTP. NEUROLOGIC: CN 2-12 grossly intact, no sensory deficit, normal cognition, normal speech, no tremor PSYCHIATRIC: alert cooperative and oriented to person, place and time. Euthymic mood, makes good eye contact, language grossly intact, recent and remote memory grossly intact. LYMPHATIC: no inguinal lymphadenopathy Updated Medication List Medication Instructions Recorded Confirmed Type ezetimibe 10 mg tablet (Zetia) 10 mg PO HS 06/19/19 03/15/22 History folic acid 1 mg tablet 1 mg PO HS 06/19/19 03/15/22 History furosemide 20 mg tablet (Lasix) 20 mg PO QAM 06/19/19 03/15/22 History losartan 25 mg tablet (Cozaar) 25 mg PO HS 06/19/19 03/15/22 History magnesium oxide 400 mg PO BID 06/19/19 03/15/22 History metoprolol tartrate 25 mg tablet 25 mg PO BID 06/19/19 03/15/22 History zsafsywmamzo-yvtbqaah-egbgrn 1 tab PO QAM 06/19/19 03/15/22 History tablet (Multivitamin 50 Plus tablet) nitroglycerin 0.4 mg sublingual 0.4 mg sublingual UD PRN Chest Pain 06/19/19 03/15/22 History tablet (Nitrostat) omega 2-bsd-bie-fish oil 1,000 mg 1 cap PO BID 06/19/19 03/15/22 History (120 mg-180 mg) capsule (Fish Oil) oxycodone-acetaminophen 5 mg-325 1 tab PO Q6H PRN Pain 06/19/19 03/15/22 History mg tablet (Percocet) apixaban 5 mg tablet (Eliquis) 5 mg PO BID 08/31/19 03/15/22 History rosuvastatin 40 mg tablet (Crestor) 40 mg PO HS 08/31/19 03/15/22 History diltiazem HCl 120 mg 120 mg PO QAM 08/18/20 03/15/22 History tablet,extended release 24 hr isosorbide mononitrate 60 mg 60 mg PO QAM 08/18/20 03/15/22 History tablet,extended release 24 hr albuterol sulfate 90 mcg/actuation 2 puff inhalation DIRECTED PRN 03/15/22 03/15/22 History aerosol inhaler Shortness Of Breath duloxetine 30 mg capsule,delayed 30 mg PO DAILY 03/15/22 03/15/22 History release tizanidine 4 mg tablet 4 mg PO TID PRN MUSCLE SPASMS 03/15/22 03/15/22 History urea 20 % topical cream 1 applic topical BID PRN Dry Skin 03/15/22 03/15/22 History prednisone 20 mg tablet 60 mg PO DAILY #45 tabs 03/18/22 Rx Hospital Stay Data Consultations 03/15/22 22:02 ED Decision to Admit Stat Diagnostic Imagining Performed 03/16/22 01:08 CT angio chest PE protocol Urgent US venous doppler LE BI Urgent 03/16/22 12:51 CT lumbar spine wo con Urgent Discharge Instructions Given to Patient (Per Discharging Provider) Please take all medications as instructed on discharge list below. You are being placed on high dose prednisone which is a steroid to take daily until you are seen by Dr. Hummel. An important side effect of this medication is elevated blood sugar. Please follow-up closely with your primary care provider to check how your blood sugar is looking while on prednisone. If the course is required for a few weeks, you may need to be started on medication to help control your blood sugar which is a side effect of the steroids. Dr. Hummel's office staff will call you after the weekend to set up an outpatient appointment within the week. They will also place an order for you to undergo a temporal artery biopsy some time this week which will help to prove what this is. A general surgeon typically performs this type of biopsy, and their staff will be contacting you to set this up. In preparation for a temporal artery biopsy, you must be off your apixaban for at least 48 hours to minimize bleeding. Please stop your apixaban now, and plan to resume it once the surgeon says you are cleared to do so. Please avoid driving while until you are seen in followup and your eyesight has been thoroughly evaluated. An optometry/ophthalmology checkup may also be considered. It is recommended that you follow-up with Dr. Garcia in one week to touch base with her after discharge from the hospital and to ensure she is involved with your ongoing care needs. If you have a fever, try to take tylenol. If this doesn't work or you have additional pain, you may have one dose of Motrin, but shouldn't take this type of drug consistently. If you see your hands turn white or change colors, immediately put gloves on or work to rewarm them. It was a pleasure taking care of you! Please call if you have any questions or problems. You can reach a [facility] hospitalist on duty at [facility] 24 hours a day by calling [phone]. Take care of yourself. DO Gary Bryant Hospitalist Total Time Total Time Spent Total Time Spent (In Minutes): 60
[2022-03-18] MEDS ORDERED: predniSONE 20 MG TAB PO STA (14:14)
[2022-03-18] MEDS: DOXYCYCLINE HYCLATE 100 MG in DEXTROSE 5% 100 ML IV SCH (14:22)
[2022-03-19] MEDS ORDERED: GABAPENTIN 600 MG TAB PO SCH (12:00)
[2022-03-20 20:36] LABS: Babesia microti DNA Not Detected (Not Detected)
--- NOTE | 2022-03-21 14:04 | Coding Query ---
SEPSIS To promote full compliance with coding requirements relating to patient care, physician participation is requested in all cases of casing finisher and stuffer uncertainty. Please assist us with the question(s) below: In responding to this query, please exercise your independent professional judgement. The fact that a question is asked does not imply that any particular answer is desired or expected. We appreciate your clarification on this issue. Throughout the medical record, you have clearly documented a localized infection and your patient has clinical evidence of a generalized sepsis or severe sepsis. The term urosepsis is a nonspecific entity and is coded as an UTI. If the patient has sepsis, severe sepsis, from an urinary source or some other source, please clarify in your response below. The medical record reflects the following clinical findings: Patient admitted with cough,fever,and hypoxia. Pneumonia ruled out.H/P - documentation SIRS criteria met. DS final diagnosis stated vasculitis. Pt to have an outpateint temporal artery bx. Please check below the phrase that describes the diagnosis that was treated if relevent. Thanks for your help. Roni Stewart [facility] ____ ( )Bacteremia (Nonspecific laboratory finding of bacteria in the blood) Specify Organism ( ) Present on Admission ( ) Not present on admission ( ) Unable to clinically determine ( ) Septicemia (Systemic disease associated with the presence of pathogenic microorganisms in the blood): Specify Organism ( ) Present on Admission ( ) Not present on admission ( ) Unable to clinically determine ( ) Sepsis Specify Organism Specify Associated Condition/Diagnosis ( ) Present on Admission ( ) Not present on admission ( ) Unable to clinically determine ( ) Severe Sepsis (Sepsis associated with acute organ dysfunction) Specify Organism Specify Associated Condition/Diagnosis ( ) Present on Admission ( ) Not present on admission ( ) Unable to clinically determine ( ) Septic Shock (Severe sepsis with acute circulatory failure, unexplained by other causes) ( ) Present on Admission ( ) Not present on admission ( ) Unable to clinically determine ( x) Other, patient has: The patient met SIRS criteria on admission and was treated empirically for sepsis however there was no localized infection and sepsis was ruled out. SIRS was likely secondary to vasculitis, which is a noninfectious process MTDD
[2022-03-25 13:02] LABS: % Cryocrit DNR; ANCA Screen Negative (Negative); Anti Nuclear Antibody Screen NEGATIVE (NEGATIVE); Anti-SS-A <1.0 NEG AI (<1.0 NEG); Anti-SS-B <1.0 NEG AI (<1.0 NEG); Anti-dsDNA Recombinant <1 IU/mL; Complement C3 162 mg/dL (82-185); Complement Total(CH50) >60 U/mL (31-60); Cryoglobulin, QL Negative (Negative); HBSAG NON-REACTIVE (NON-REACTIVE); Hepatitis A Antibody IgM NON-REACTIVE (NON-REACTIVE); Hepatitis B Core Antibody IgM NON-REACTIVE (NON-REACTIVE); Myeloperoxidase Ab <1.0 AI (<1.0); Proteinase-3 AB <1.0 AI (<1.0); Rheumatoid Factor <14 IU/mL (<14)
== END 2022-03-18 16:31 | disposition home or self-care (01) | DRG 546 ==
LOC: ED 20:07 → 4W 23:09 → SUATTDRO 23:09 → 4W 03-16 00:55

== ENCOUNTER 2024-05-21 23:01 | Inpatient (IN) ==
[2024-05-22 00:01] LABS: Basophils # (auto) 0.03 K/uL (0.00-0.20); Basophils % (auto) 0.3 %; Eosinophils # (auto) 0.18 K/uL (0.00-0.50); Eosinophils % (auto) 2.1 %; Hematocrit (blood only) 44.6 % (42.0-52.0); Immature Granulocytes # (auto) 0.03 K/uL (0.01-0.20); Immature Granulocytes % (auto) 0.3 %; Lymphocytes % (auto) 25.4 %; Mean Corpuscular Hemoglobin 31.1 pg (25.0-34.0); Mean Corpuscular Hgb Conc 33.6 g/dL (32.0-36.0); Mean Corpuscular Volume 92.3 fL (80.0-100.0); Mean Platelet Volume 9.5 fL (9.4-12.4); Monocytes # (auto) 0.92 K/uL (0.11-0.59); Monocytes % (auto) 10.6 %; Neutrophils # (auto) 5.29 K/uL (1.40-6.50); Neutrophils % (auto) 61.3 %; Platelet Count 278 K/uL (130-400); RDW Coefficient of Variation 13.3 % (11.5-14.5); RDW Standard Deviation 45.4 fL (36.4-46.3); Red Blood Count 4.83 M/uL (4.70-6.10); White Blood Count 8.65 K/ul (4.8-10.8)
[2024-05-22] MEDS: SODIUM CHLORIDE 0.9% 1,000 ML IV SCH ×2 (00:08→13:12)
[2024-05-22 00:17] LABS: Albumin Level 4.4 gm/dl (3.4-5.0); BUN Creatinine Ratio 18.9 (10-20); Bilirubin Direct 0.1 mg/dl (0-0.2); Bilirubin,Total 0.5 mg/dl (0.2-1.0); Calcium 9.5 mg/dl (8.6-10.3); Creatinine Clr Calc Pharmacy 108.5 ml/min; Magnesium 2.1 mg/dl (1.7-2.4); Potassium 3.6 mmol/L (3.5-5.1); Total Protein 8.3 gm/dl (6.0-8.3)
--- NOTE | 2024-05-22 00:17 | Emergency Department Note ---
Impression & Plan Abdominal pain, Constipation, Abnormal LFTs, Dilated bile duct ED Provider Note ED Provider Note NAME: CHI MACIEL AGE:64 SEX: Male : 1960 ARRIVES VIA: Private vehicle INFORMANT: Patient ED PROVIDER(s): Ivon Painter DO CHIEF COMPLAINT: Referred by PCP HPI: This is a 64-year-old male who presents emergency department stating he was told to come the emergency department if he felt his abdominal pain was worsening. Patient admits to 3 to 4 days of constipation which is new for him. He states he had outpatient labs performed last week and were told that a few of his liver numbers are mildly elevated. These were repeated yesterday and found to still be elevated so he was sent for an abdominal ultrasound today. He was called by his PCP and told that there were several abnormalities and they wanted to set him up for an ERCP. He states he did not mention any other imaging at this time. He states he was told that should his pain worsen he should come to the ER immediately. He denies fevers or chills but admits to occasional night sweats. He states he has had increased abdominal bloating and distention, denies nausea or vomiting. He states his prior labs approximately 6 months ago were normal. He states in the interim he did start Ozempic and did lose 32 pounds, he also began taking baclofen occasionally. He states his Ozempic dosing has been increased twice. He states since the family doctor noted the abnormal LFTs he was instructed to stop several medications as a precaution given concern that they were contributing to the abnormal liver numbers. Patient does admit to occasional alcohol use, he states he typically has several drinks on the weekend but does not drink on a nightly basis. PAST MEDICAL HISTORY:See Below PAST SURGICAL HISTORY:See Below FAMILY HISTORY:See Below SOCIAL HISTORY:See Below HOME MEDICATIONS:See Below ALLERGIES:See Below VITALS:See Below PHYSICAL EXAMINATION: GENERAL: alert, well appearing, well nourished, no distress, non-toxic, BMI 39 EYE EXAM: normal conjunctiva, PERRL and EOM's grossly intact OROPHARYNX: no exudate, no erythema, lips, buccal mucosa, and tongue normal and mucous membranes are moist NECK: supple, no nuchal rigidity, no adenopathy, non-tender LUNGS: Clear to auscultation. Normal chest wall mechanics, no w/r/r HEART: no murmurs, S1 normal and S2 normal ABDOMEN: abdomen soft, non-tender, normo-active bowel sounds, no masses, no rebound or guarding. BACK: Back is symmetrical on inspection and there is no deformity, no midline tenderness, no CVA tenderness. SKIN: no rashes, petechiae, orbruising UPPER EXTREMITIES: upper extremities are grossly normal. FROM, nml pulses b/l. LOWER EXTREMITIES: No pitting edema. FROM, nml pulses b/l. NEURO EXAM: Normal sensorium, cranial nerves II-XII grossly intact, normal speech, no facial droop,nogross weakness of arms, no gross weakness of legs. Gross sensation intact. No ataxia. Vital Signs: reviewed and remarkable Differential Diagnosis: Constipation, cholecystitis, choledocholithiasis, pancreatitis, PUD, IBS, IBD, mass, medication ADR, hepatitis, as well as others were considered MEDICAL DECISION MAKING: This is a 64 yo male who presents to the ER with concern for 4 days of constipation, RUQ pain, and recent abnormal LFT's and US. He was afebrile and VS stable. Labs drawn and sent, IV established, and patient monitored on telemetry. After discussion of sx and ddx and review of outpatient labs and US, we discussed CT a/p. CT reassuring but did show dilated biliary ducts and GB noted on outpt US. Labs with elevated LFT's and lipase, although downtrending compared to outpatient. Patient given IVF, IV tylenol, and IV morphine for pain. We discussed results at bedside. Given dilated biliary ducts and abn LFT's and need for further evaluation to r/o occult choledocholithiasis vs mass vs stricture. I did speak with the pharmacy technician given patient has an MR compatible pacemaker however nuclear radiation engineer needs to be present for the study. Plan for MRCP as soon as tech arrives in the morning. Patient kept NPO in preparation for this. ER Treatment Provided: See below 0815: Patient signed out to Dr. Monteiro awaiting MRCP. Diagnostics Interpreted By Me: -ECG: Paced at 61, normal axis, prolonged intervals consistent with pacemaker, no acute ST/T wave changes -Cardiac Monitoring: An order was placed for continuous cardiac monitoring. The monitor shows a rate of 66 with paced rhythm. -Laboratory studies: As stated above and show below. -Imaging studies: ct a/p -no cholelithiasis, no bowel obstruction Triage Nursing Note Reviewed Prior/Outside Records Reviewed Past Med/Surg History Problem List (Updated 05/24/24 @ 19:12 by Ivon Painter DO) Dilated bile duct (Acute) Dilation of biliary tract Abnormal finding on imaging Obesity due to excess calories with serious comorbidity Pancreatitis Abnormal LFTs (Acute) Constipation (Acute) Abdominal pain (Acute) Colles' fracture of left radius, subsequent encounter for closed fracture with malunion Diabetes mellitus, type 2 Prinzmetal angina (Chronic) DVT (deep venous thrombosis) (Chronic) Chest pain Encounter for pre-operative examination Bilateral pneumonia (Acute) Hypoxia (Acute) Sepsis Acute pain of right lower extremity Vasculitis AV node dysfunction (Chronic) Paroxysmal A-fib (Chronic) Taking Eliquis CAD (coronary artery disease) (Chronic) CABG x1 + MVR (2001) RCA stent "for occluded graft from CABG" (01/2002) Unstable angina (Acute) Hx of cardiac cath (Chronic) 01/2002- stent x1 05/2014- no stents S/P right coronary artery (RCA) stent placement (Chronic) "for occluded graft from CABG"- 01/2002 Hx of mitral valve repair (Chronic) Mitral valve repair and annuloplasty ([facility]) S/P CABG x 1 (Chronic) 2001 Pacemaker (Chronic) [employer], last checked in 10/[address] Luna MTHFR mutation (Chronic) Per records, patient unsure Pulmonary embolism (Chronic) DVT > PE (2006) History of nephrectomy, unilateral (Chronic) right d/t cancer (2001) Renal cell carcinoma (Chronic) Right > surgery Atrial flutter (Chronic) s/p ablation 2010, [address] 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 COPD (chronic obstructive pulmonary disease) Numbness of right anterior thigh R/t back issues Chronic back pain + feet neuropathy Hearing loss in left ear History of DVT of lower extremity DVT > PE (2006) History of COVID-2019- loss of taste/smell, felt achiness, fever, low pulse ox, cough, not hospitalized > no further issues Surgical History Hx of bilateral cataract extraction Hx of detached retina repair 11/20/2022 (2 tears repaired) History of colonoscopy Status post correction of deviated nasal septum History of surgical procedure on eye proper using laser left History of cardioversion Several, most recent 5+ years ago History of cardiac radiofrequency ablation x4- 2019, 2012, 2010, 2006 Family History Daughter Family history of diabetes mellitus Uncle Family history of esophageal cancer Other Family history non-contributory No family history of adverse response to anesthesia Social History Smoking Status: Former smoker Tobacco Type: Cigars Cigarettes Per Day: occasional cigar use when golfing; Second Hand Exposure: No; Do You Dip or Chew Tobacco: No; Hx Alcohol Use: Yes Alcohol type: wine Hx Substance Use: No Preferred Language: Lao Communication Ability: Effective Advanced Registered Nurse Required: No Beliefs That Will Affect Care: None Current Living Situation: Spouse Feels Safe at Home: Yes Safety Concerns: Feels Safe At This Time Assistive Devices: Glasses Assistive Devices Comment: left bilateral hearing aides at home Allergies Allergies Allergy/AdvReac Type Severity Reaction Status Date / Time No Known Allergies Allergy Verified 01/24/23 12:00 Home Meds Home Medications Medication Instructions Recorded Confirmed ezetimibe 10 mg tablet (Zetia) 10 mg PO HS 06/19/19 05/22/24 furosemide 20 mg tablet (Lasix) 20 mg PO QAM 06/19/19 05/22/24 losartan 25 mg tablet (Cozaar) 25 mg PO HS 06/19/19 05/22/24 magnesium oxide 400 mg PO BID 06/19/19 05/22/24 metoprolol tartrate 25 mg tablet 25 mg PO BID 06/19/19 05/22/24 vuxtcjharhia-uwpowrcm-fvsgop 1 tab PO QAM 06/19/19 05/22/24 tablet (Multivitamin 50 Plus tablet) nitroglycerin 0.4 mg sublingual 0.4 mg sublingual UD PRN Chest Pain 06/19/19 05/22/24 tablet (Nitrostat) omega 7-qoj-neh-fish oil 1,000 mg 1 cap PO BID 06/19/19 05/22/24 (120 mg-180 mg) capsule (Fish Oil) rosuvastatin 40 mg tablet (Crestor) 40 mg PO HS 08/31/19 05/22/24 diltiazem HCl 120 mg 120 mg PO QAM 08/18/20 05/22/24 tablet,extended release 24 hr isosorbide mononitrate 60 mg 60 mg PO QAM 08/18/20 05/22/24 tablet,extended release 24 hr albuterol sulfate 90 mcg/actuation 2 puff inhalation UD PRN Shortness 03/15/22 05/22/24 aerosol inhaler Of Breath duloxetine 30 mg capsule,delayed 30 mg PO BID 03/15/22 05/22/24 release tizanidine 4 mg tablet 4 mg PO TID PRN MUSCLE SPASMS 03/15/22 05/22/24 urea 20 % topical cream 1 applic topical UD PRN Dry Skin 03/15/22 05/22/24 apixaban 5 mg tablet (Eliquis) 5 mg PO BID 03/22/22 05/22/24 aspirin 81 mg capsule 81 mg PO DAILY 12/25/22 05/22/24 metformin 500 mg tablet 500 mg PO BID 12/25/22 05/22/24 omeprazole 1 tab PO UD 12/25/22 05/22/24 tocilizumab 162 mg/0.9 mL 162 mg subcut Q7D 12/25/22 05/22/24 subcutaneous pen injector (Actemra ACTPen) baclofen 10 mg tablet 10 mg PO HS PRN Restless Leg(S) 05/22/24 05/22/24 Results & Data (ED) Vital Signs Vital Signs - 24 hr 05/21/24 23:09 05/21/24 23:44 05/21/24 23:45 Temperature 36.5 C Temperature Source Oral Pulse Rate 66 64 Pulse Rate [Apical] 67 Pulse Rhythm [Apical] Regular Pulse Strength [Apical] Normal Respiratory Rate 18 Respiratory Effort / Characteristics Non-Labored Spontaneous Respiratory Depth Normal Respiratory Pattern Regular Blood Pressure 172/83 H Blood Pressure [Left Arm] 157/81 H Blood Pressure Mean 112 Blood Pressure Mean [Left Arm] 106 Blood Pressure Position [Left Arm] Semi-fowlers Pulse Oximetry 97 97 Oxygen Delivery Method Room Air Room Air Sepsis Recent Fever Within 48 Hours No Sepsis New/Unexplained Change in Mental Status No Sepsis Action Taken by Nursing No Action Required 05/22/24 01:00 05/22/24 03:00 05/22/24 03:44 Temperature Temperature Source Pulse Rate 60 Pulse Rate [Apical] 74 60 Pulse Rhythm [Apical] Regular Pulse Strength [Apical] Normal Respiratory Rate 18 18 Respiratory Effort / Characteristics Non-Labored Spontaneous Non-Labored Spontaneous Respiratory Depth Normal Normal Respiratory Pattern Regular Regular Blood Pressure Blood Pressure [Left Arm] 140/83 133/78 Blood Pressure Mean Blood Pressure Mean [Left Arm] 102 96 Blood Pressure Position [Left Arm] Semi-fowlers Semi-fowlers Pulse Oximetry 97 94 Oxygen Delivery Method Room Air Room Air Sepsis Recent Fever Within 48 Hours Sepsis New/Unexplained Change in Mental Status Sepsis Action Taken by Nursing 05/22/24 05:00 05/22/24 06:00 05/22/24 06:30 Temperature Temperature Source Pulse Rate Pulse Rate [Apical] 60 60 60 Pulse Rhythm [Apical] Regular Regular Pulse Strength [Apical] Respiratory Rate 16 16 18 Respiratory Effort / Characteristics Non-Labored Spontaneous Non-Labored Spontaneous Non-Labored Spontaneous Respiratory Depth Normal Normal Normal Respiratory Pattern Regular Regular Regular Blood Pressure Blood Pressure [Left Arm] 146/82 H 143/92 H 140/87 Blood Pressure Mean Blood Pressure Mean [Left Arm] 103 109 104 Blood Pressure Position [Left Arm] Semi-fowlers Lying Lying Pulse Oximetry 97 96 96 Oxygen Delivery Method Room Air Room Air Room Air Sepsis Recent Fever Within 48 Hours Sepsis New/Unexplained Change in Mental Status Sepsis Action Taken by Nursing Laboratory Data 05/24/24 05:48 05/24/24 05:48 Lab Results 05/21/24 Range/Units 23:53 WBC 8.65 (4.8-10.8) K/ul RBC 4.83 (4.70-6.10) M/uL Hgb 15.0 (14.0-18.0) g/dl Hct 44.6 (42.0-52.0) % MCV 92.3 (80.0-100.0) fL MCH 31.1 (25.0-34.0) pg MCHC 33.6 (32.0-36.0) g/dL RDW Std Deviation 45.4 (36.4-46.3) fL RDW Coeff of Haleigh 13.3 (11.5-14.5) % Plt Count 278 (130-400) K/uL MPV 9.5 (9.4-12.4) fL Immature Gran % (Auto) 0.3 % Neut % (Auto) 61.3 % Lymph % (Auto) 25.4 % Porter % (Auto) 10.6 % Eos % (Auto) 2.1 % Baso % (Auto) 0.3 % Neut # (Auto) 5.29 (1.40-6.50) K/uL Lymph # (Auto) 2.20 (1.20-3.40) K/uL Porter # (Auto) 0.92 H (0.11-0.59) K/uL Eos # (Auto) 0.18 (0.00-0.50) K/uL Baso # (Auto) 0.03 (0.00-0.20) K/uL Immature Gran # (Auto) 0.03 (0.01-0.20) K/uL PT 10.9 (9.0-12.0) Seconds INR 1.0 (0.9-1.1) Sodium 137 (136-145) mmol/L Potassium 3.6 (3.5-5.1) mmol/L Chloride 101 (98-107) mmol/L Carbon Dioxide 29 (21-32) mmol/L Anion Gap 7 (3-11) BUN 18 (6-23) mg/dl Creatinine 0.95 (0.6-1.4) mg/dl Est Cr Clr Drug Dosing 108.5 ml/min eGFR 88.83 BUN/Creatinine Ratio 18.9 (10-20) Glucose 102 H (70-99(Fasting)) mg/dl Calcium 9.5 (8.6-10.3) mg/dl Magnesium 2.1 (1.7-2.4) mg/dl Total Bilirubin 0.5 (0.2-1.0) mg/dl Direct Bilirubin 0.1 (0-0.2) mg/dl AST 43 H (13-39) U/L ALT 73 H (7-52) U/L Alkaline Phosphatase 246 H (34-104) U/L Total Protein 8.3 (6.0-8.3) gm/dl Albumin 4.4 (3.4-5.0) gm/dl Lipase 133 H (11-82) U/L Administered Medications Acetaminophen (Acetaminophen 325 Mg Tab) 650 mg PO Q4H PRN PRN Reason: Moderate Pain (Scale 4, 5, 6) Stop: 06/21/24 12:33 Last Admin: 05/22/24 18:32 Dose: 650 mg Documented By: LUANNE Diltiazem HCl (Diltiazem Hcl 120 Mg Capcr) [facility] [place] Stop: 06/22/24 08:59 Last Admin: 05/24/24 08:10 Dose: 120 mg Documented By: Admin: 05/23/24 08:02 Dose: 120 mg Documented By: DANIEL Duloxetine HCl (Duloxetine Hcl 30 Mg Cap) 30 mg PO BID [facility] Stop: 06/21/24 20:59 Last Admin: 05/24/24 08:10 Dose: 30 mg Documented By: Admin: 05/23/24 21:32 Dose: 30 mg Documented By: Admin: 05/23/24 08:02 Dose: 30 mg Documented By: Admin: 05/22/24 20:14 Dose: 30 mg Documented By: DELGADO Furosemide (Furosemide 20 Mg Tab) [facility] [place] Stop: 06/22/24 12:14 Last Admin: 05/24/24 08:10 Dose: 20 mg Documented By: Admin: 05/23/24 13:14 Dose: 20 mg Documented By: DANIEL Piperacillin Sod/Tazobactam Sod (Zosyn) 4.5 gm in 100 mls @ 25 mls/hr IV Q8H [facility]; Protocol Stop: 06/01/24 12:59 Last Infusion: 05/24/24 16:52 Dose: Infused Documented By: Admin: 05/24/24 12:51 Dose: 25 mls/hr Documented By: Infusion: 05/24/24 09:32 Dose: Infused Documented By: Admin: 05/24/24 05:32 Dose: 25 mls/hr Documented By: Infusion: 05/24/24 01:35 Dose: Infused Documented By: Admin: 05/23/24 21:09 Dose: 25 mls/hr Documented By: Infusion: 05/23/24 17:17 Dose: Infused Documented By: Admin: 05/23/24 13:16 Dose: 25 mls/hr Documented By: Infusion: 05/23/24 09:35 Dose: Infused Documented By: Admin: 05/23/24 05:32 Dose: 25 mls/hr Documented By: Infusion: 05/23/24 00:14 Dose: Infused Documented By: Admin: 05/22/24 20:14 Dose: 25 mls/hr Documented By: Infusion: 05/22/24 19:36 Dose: Infused Documented By: Admin: 05/22/24 14:15 Dose: 25 mls/hr Documented By: LUANNE Insulin Aspart (Insulin Aspart Per Unit Charge) 0 units SC ACHS [facility]I Stop: 06/21/24 12:33 Last Admin: 05/24/24 16:52 Dose: Not Given Documented By: Admin: 05/24/24 11:04 Dose: Not Given Documented By: Admin: 05/24/24 08:16 Dose: Not Given Documented By: Admin: 05/23/24 21:30 Dose: Not Given Documented By: MAC Co-signed By: Admin: 05/23/24 16:03 Dose: Not Given Documented By: Admin: 05/23/24 11:04 Dose: Not Given Documented By: Admin: 05/23/24 08:55 Dose: Not Given Documented By: Admin: 05/22/24 20:13 Dose: Not Given Documented By: Admin: 05/22/24 17:09 Dose: Not Given Documented By: Admin: 05/22/24 13:11 Dose: Not Given Documented By: LUANNE Isosorbide Mononitrate (Isosorbide Porter Extended Rel 60 Mg Tabcr) 60 mg PO QAM [facility] Stop: 06/22/24 08:59 Last Admin: 05/24/24 08:11 Dose: 60 mg Documented By: Admin: 05/23/24 08:02 Dose: 60 mg Documented By: DANIEL Losartan Potassium (Losartan Potassium 25 Mg Tab) 25 mg PO HS [facility] Stop: 06/21/24 20:59 Last Admin: 05/23/24 21:33 Dose: 25 mg Documented By: Admin: 05/22/24 20:14 Dose: 25 mg Documented By: DELGADO Metoprolol Tartrate (Metoprolol Tartrate 25 Mg Tab) 25 mg PO BID [facility] Stop: 06/21/24 20:59 Last Admin: 05/24/24 08:11 Dose: 25 mg Documented By: Admin: 05/23/24 21:33 Dose: 25 mg Documented By: Admin: 05/23/24 08:02 Dose: 25 mg Documented By: Admin: 05/22/24 20:14 Dose: 25 mg Documented By: DELGADO Morphine Sulfate (Morphine Sulfate 4 Mg/Ml 1 Ml Carp\\Vial) 3 mg IV Q3HWA PRN PRN Reason: Breakthrough Pain Stop: 06/05/24 12:37 Last Admin: 05/24/24 08:11 Dose: 3 mg Documented By: Admin: 05/24/24 02:17 Dose: 3 mg Documented By: Admin: 05/23/24 15:33 Dose: 3 mg Documented By: DANIEL Pantoprazole Sodium (Pantoprazole 40 Mg Tab) 40 mg PO DAILY [facility] Stop: 06/22/24 08:59 Last Admin: 05/24/24 08:11 Dose: 40 mg Documented By: Admin: 05/23/24 08:02 Dose: 40 mg Documented By: DANIEL Polyethylene Glycol (Polyethylene (Miralax) 17 Gm Pack) 17 gm PO DAILY PRN PRN Reason: Constipation Stop: 06/21/24 18:48 Last Admin: 05/23/24 05:40 Dose: 17 gm Documented By: DELGADO Rosuvastatin Calcium (Rosuvastatin Calcium 20 Mg Tab) 40 mg PO HS TRUDI Stop: 06/21/24 20:59 Last Admin: 05/23/24 21:31 Dose: 40 mg Documented By: Admin: 05/22/24 20:12 Dose: Not Given Documented By: DELGADO Discontinued Medications Aspirin (Aspirin 81 Mg Ectab) 81 mg PO DAILY TR[facility]I Stop: 06/22/24 08:59 Last Admin: 05/23/24 08:02 Dose: 81 mg Documented By: DANIEL Sodium Chloride (Nss) 1,000 mls @ 125 mls/hr IV .Q8H [facility] Stop: 05/22/24 23:44 Last Infusion: 05/22/24 19:37 Dose: Infused Documented By: Infusion: 05/22/24 16:11 Dose: 0 mls/hr Documented By: Admin: 05/22/24 08:59 Dose: 125 mls/hr Documented By: Infusion: 05/22/24 08:08 Dose: Infused Documented By: Admin: 05/22/24 00:08 Dose: 125 mls/hr Documented By: VALERIE Famotidine (Pepcid 20mg Iv Push) 20 mg in 5 mls @ 2.5 mls/min IV NOW STA Stop: 05/22/24 07:49 Last Admin: 05/22/24 08:01 Dose: 2.5 mls/min Documented By: GAY Acetaminophen (Ofirmev) 1,000 mg in 100 mls @ 400 mls/hr IV NOW STA Stop: 05/22/24 08:02 Last Infusion: 05/22/24 09:04 Dose: Infused Documented By: Admin: 05/22/24 08:00 Dose: 400 mls/hr Documented By: GAY Piperacillin Sod/Tazobactam Sod (Zosyn) 4.5 gm in 100 mls @ 200 mls/hr IV NOW ONE; Protocol Stop: 05/22/24 09:00 Last Infusion: 05/22/24 10:18 Dose: Infused Documented By: Admin: 05/22/24 08:57 Dose: 200 mls/hr Documented By: GAY Lactated Ringer's (Lr) 1,000 mls @ 125 mls/hr IV .Q8H [facility] Stop: 05/22/24 20:33 Last Infusion: 05/22/24 19:37 Dose: Infused Documented By: Admin: 05/22/24 15:30 Dose: 125 mls/hr Documented By: LUANNE Sodium Chloride (Nss) 1,000 mls @ 80 mls/hr IV .[id number] [facility]I Stop: 05/23/24 12:44 Last Infusion: 05/23/24 11:48 Dose: Infused Documented By: Admin: 05/22/24 23:18 Dose: 80 mls/hr Documented By: Infusion: 05/22/24 23:18 Dose: Infused Documented By: Admin: 05/22/24 13:12 Dose: 80 mls/hr Documented By: LUANNE Ioversol (Optiray 320 100ml) 93 ml IV ONCE ONE Stop: 05/22/24 02:37 Last Admin: 05/22/24 02:36 Dose: 93 ml Documented By: PLW Lorazepam (Lorazepam 2 Mg/1 Ml Vial) 1 mg IV NOW STA Stop: 05/22/24 06:25 Last Admin: 05/22/24 11:25 Dose: 1 mg Documented By: GCC Morphine Sulfate (Morphine Sulfate 4 Mg/Ml 1 Ml Carp\\Vial) 4 mg IV NOW STA Stop: 05/22/24 00:18 Last Admin: 05/22/24 00:23 Dose: 4 mg Documented By: IDD Morphine Sulfate (Morphine Sulfate 4 Mg/Ml 1 Ml Carp\\Vial) 4 mg IV NOW STA Stop: 05/22/24 04:38 Last Admin: 05/22/24 04:53 Dose: 4 mg Documented By: JT Morphine Sulfate (Morphine Sulfate 4 Mg/Ml 1 Ml Carp\\Vial) 4 mg IV NOW STA Stop: 05/22/24 10:09 Last Admin: 05/22/24 10:15 Dose: 4 mg Documented By: AMS Imaging Data Radiologist's Impression: Abdomen/Pelvis CT 05/22/24 01:40 EXAM: CT abd pelvis IV con only CLINICAL HISTORY: right sided abd pain, constipation, abn LFT''s TECHNIQUE: CT scan of the abdomen and pelvis was performed without IV contrast administration (93ml Optiray 320) . Coronal and sagittal reconstructive images were also obtained. One of the following dose reduction techniques were utilized for this exam: Automated exposure control, adjustment of the mA and/or kV according to patient size, use of iterative reconstruction. CT scan performed according to ALARA principles. Automated exposure control used during the exam. CTDI: 28mGy; DLP: 1465.17mGy-cm COMPARISON: none FINDINGS: Average sized liver showing homogenous parenchymal attenuation. Dilated intra and extra-hepatic biliary tracts down to the distal end of the common bile duct with no obstructing masses. Markedly distended gall bladder showing no obvious radiodense calculi. Clear surrounding fat planes with no sizeable collections. Normal appearance of the pancreas with clear surrounding fat planes. The spleen, adrenal glands and IVC are unremarkable. Aortoiliac atheromatous calcifications. Evidence of right nephrectomy with no operative bed masses. The left kidney is of average size and show smooth outline and preserved parenchymal thickness. No renal calculi. No hydronephrosis. The urinary bladder is distended showing no obvious masses. Mildly enlarged prostate. Few pelvic phleboli. Small fat-containing right inguinal hernia. No free intraperitoneal air. No pelvi-abdominal encysted collections. No obvious pathologically enlarged lymph nodes. The appendix is unremarkable. No obvious right iliac inflammatory changes. Colonic fecal loading. The ascending colon, the transverse colon, the descending colon, visualized small bowel loops are unremarkable. Mild gastric wall thickening. Scanned osseous structures show no osseous destruction. Thoracolumbar spondylosis. Scanned lung bases show bilateral basal atelectatic plates. IMPRESSION: 1. Markedly distended gall bladder. Dilated intra and extra-hepatic biliary tracts down to the distal end of the common bile duct with no obstructing masses. Advise MRCP correlation 2. Rest of the study findings as detailed. 3. No pelvi-abdominal collections or free air. Electronically signed by Juve Douglas 05-22-2024 03:57 AM Discharge Plan Visit Data Chief Complaint: Abdominal Pain Stated Complaint: ABD PAIN, CONSTIPATION, SWOLLEN ABD ED Provider: Antonia Monteiro Discharge Problem: Abdominal pain, Constipation, Abnormal LFTs, Dilated bile duct Patient Disposition: Admitted As Inpatient Discharge Instructions Interventions: ED Discharge Assessment Last Done: 05/22/24 10:55
[2024-05-22] MEDS: MoRPHine SULFATE 4 MG/ML 1 ML CARP\\VIAL IV STA ×3 (00:23→10:15)
[2024-05-22 00:29] LABS: Prothrombin Time 10.9 Seconds (9.0-12.0)
[2024-05-22] MEDS: OPTIRAY 320 100ml IV ONE (02:36)
--- NOTE | 2024-05-22 03:57 | CT Scan Report ---
EXAM: CT abd pelvis IV con only CLINICAL HISTORY: right sided abd pain, constipation, abn LFT''s TECHNIQUE: CT scan of the abdomen and pelvis was performed without IV contrast administration (93ml Optiray 320) . Coronal and sagittal reconstructive images were also obtained. One of the following dose reduction techniques were utilized for this exam: Automated exposure control, adjustment of the mA and/or kV according to patient size, use of iterative reconstruction. CT scan performed according to ALARA principles. Automated exposure control used during the exam. CTDI: 28mGy; DLP: 1465.17mGy-cm COMPARISON: none FINDINGS: Average sized liver showing homogenous parenchymal attenuation. Dilated intra and extra-hepatic biliary tracts down to the distal end of the common bile duct with no obstructing masses. Markedly distended gall bladder showing no obvious radiodense calculi. Clear surrounding fat planes with no sizeable collections. Normal appearance of the pancreas with clear surrounding fat planes. The spleen, adrenal glands and IVC are unremarkable. Aortoiliac atheromatous calcifications. Evidence of right nephrectomy with no operative bed masses. The left kidney is of average size and show smooth outline and preserved parenchymal thickness. No renal calculi. No hydronephrosis. The urinary bladder is distended showing no obvious masses. Mildly enlarged prostate. Few pelvic phleboli. Small fat-containing right inguinal hernia. No free intraperitoneal air. No pelvi-abdominal encysted collections. No obvious pathologically enlarged lymph nodes. The appendix is unremarkable. No obvious right iliac inflammatory changes. Colonic fecal loading. The ascending colon, the transverse colon, the descending colon, visualized small bowel loops are unremarkable. Mild gastric wall thickening. Scanned osseous structures show no osseous destruction. Thoracolumbar spondylosis. Scanned lung bases show bilateral basal atelectatic plates. IMPRESSION: 1. Markedly distended gall bladder. Dilated intra and extra-hepatic biliary tracts down to the distal end of the common bile duct with no obstructing masses. Advise MRCP correlation 2. Rest of the study findings as detailed. 3. No pelvi-abdominal collections or free air. Electronically signed by Juve Douglas 05-22-2024 03:57 AM
[2024-05-22] MEDS: ACETAMINOPHEN 1,000 MG/100 ML VIAL IV STA (08:00)
[2024-05-22] MEDS: FAMOTIDINE 20MG IV PUSH 20 MG/5 ML SYR IV STA (08:01)
--- NOTE | 2024-05-22 08:23 | Emergency Department Note ---
ED Visit Note I received this patient in signout at the change of shift from Dr. Painter pending MRCP. MRI was contacted and stated they would be unable to complete the study until approximately 12 noon. On my evaluation of the patient, he is tender to palpation of the right upper quadrant. His laboratory work reveals slightly elevated AST and ALT in addition to the alk phos. His bilirubin and WBC are normal. Imaging studies were reviewed including the outpatient ultrasound and today's CAT scan. Transaminitis is downtrending when compared to outpatient laboratory work earlier this week. Patient was medicated with IV Zosyn and case was discussed with the hospitalist service pending further evaluation. General surgery, Dr. King and Whitney Bazan PA-C were consulted. They will evaluate the patient for recommendations. Patient is aware the plan and agrees. Please see previous documentation for further details of the history, physical and visit. .
[2024-05-22] MEDS: PIPERACILLIN/TAZOBACTAM 4.5 GM/100 ML BAG IV ONE (08:57)
--- NOTE | 2024-05-22 09:31 | Surgery Consultation ---
Date of Consultation May 22, 2024 Assessment & Plan (1) Abdominal pain: Still unclear precisely what is going on. High risk surgical patient. Potential is choledocholithiasis versus pancreatitis versus symptomatic gallstones (though none seen thus far on imaging ) versus cholecystitis. I agree with the MRCP. Patient currently stable. Hold Eliquis for now last dose was yesterday morning. Will continue to follow along closely and make further recommendations pending the results of the MRCP. (2) Abnormal LFTs: (3) Pancreatitis: (4) Diabetes mellitus, type 2: (5) Paroxysmal A-fib: (6) AV node dysfunction: (7) CAD (coronary artery disease): (8) S/P right coronary artery (RCA) stent placement: (9) Renal cell carcinoma: (10) History of nephrectomy, unilateral: (11) Obesity due to excess calories with serious comorbidity: History of Present Illness History of Present Illness 64-year-old male with multiple medical issues has had about a four 5-day history of upper abdominal pain. It worsened so he saw his physician. Outpatient workup including an ultrasound showed possible cholecystitis with a dilated common bile duct. Lab work is also revealed an elevated lipase and elevated LFTs. CT scan here at this hospital continues to show some dilated biliary ducts. So far no evidence of gallstones. Allergies Allergy/AdvReac Type Severity Reaction Status Date / Time No Known Allergies Allergy Verified 01/24/23 12:00 Home Medications Medication Instructions Recorded Confirmed Type ezetimibe 10 mg tablet (Zetia) 10 mg PO HS 06/19/19 05/22/24 History furosemide 20 mg tablet (Lasix) 20 mg PO QAM 06/19/19 05/22/24 History losartan 25 mg tablet (Cozaar) 25 mg PO HS 06/19/19 05/22/24 History magnesium oxide 400 mg PO BID 06/19/19 05/22/24 History metoprolol tartrate 25 mg tablet 25 mg PO BID 06/19/19 05/22/24 History lfopsxaedmix-aiuecwdt-nqjzpa 1 tab PO QAM 06/19/19 05/22/24 History tablet (Multivitamin 50 Plus tablet) nitroglycerin 0.4 mg sublingual 0.4 mg sublingual UD PRN Chest Pain 06/19/19 05/22/24 History tablet (Nitrostat) omega 3-etm-kot-fish oil 1,000 mg 1 cap PO BID 06/19/19 05/22/24 History (120 mg-180 mg) capsule (Fish Oil) rosuvastatin 40 mg tablet (Crestor) 40 mg PO HS 08/31/19 05/22/24 History diltiazem HCl 120 mg 120 mg PO QAM 08/18/20 05/22/24 History tablet,extended release 24 hr isosorbide mononitrate 60 mg 60 mg PO QAM 08/18/20 05/22/24 History tablet,extended release 24 hr albuterol sulfate 90 mcg/actuation 2 puff inhalation UD PRN Shortness 03/15/22 05/22/24 History aerosol inhaler Of Breath duloxetine 30 mg capsule,delayed 30 mg PO BID 03/15/22 05/22/24 History release tizanidine 4 mg tablet 4 mg PO TID PRN MUSCLE SPASMS 03/15/22 05/22/24 History urea 20 % topical cream 1 applic topical UD PRN Dry Skin 03/15/22 05/22/24 History apixaban 5 mg tablet (Eliquis) 5 mg PO BID 03/22/22 05/22/24 History aspirin 81 mg capsule 81 mg PO DAILY 12/25/22 05/22/24 History metformin 500 mg tablet 500 mg PO BID 12/25/22 05/22/24 History omeprazole 1 tab PO UD 12/25/22 05/22/24 History tocilizumab 162 mg/0.9 mL 162 mg subcut Q7D 12/25/22 05/22/24 History subcutaneous pen injector (Actemra ACTPen) Patient History Medical History (Updated 05/22/24 @ 09:30 by Urbano King, DO) Mitral valve disease CABG x1 + mitral valve repair and annuloplasty (2001) Vasculitis Giant cell vasculitis, 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 COPD (chronic obstructive pulmonary disease) Numbness of right anterior thigh R/t back issues Chronic back pain + feet neuropathy Hearing loss in left ear History of DVT of lower extremity DVT > PE (2006) History of COVID-19 2019- loss of taste/smell, felt achiness, fever, low pulse ox, cough, not hospitalized > no further issues Surgical History (Updated 01/01/23 @ 10:11 by Danielle Centeno) Hx of bilateral cataract extraction Hx of detached retina repair 11/20/2022 (2 tears repaired) History of colonoscopy Status post correction of deviated nasal septum History of surgical procedure on eye proper using laser left History of cardioversion Several, most recent 5+ years ago History of cardiac radiofrequency ablation x4- 2019, 2012, 2011, 2007 Family History Daughter Family history of diabetes mellitus Uncle Family history of esophageal cancer Other Family history non-contributory No family history of adverse response to anesthesia Social History Smoking Status: Current some day smoker Tobacco Type: Cigars Cigarettes Per Day: occasional cigar use when golfing; Second Hand Exposure: Yes (hx growing up); Do You Dip or Chew Tobacco: No (Quit 2001); Hx Alcohol Use: Yes Alcohol type: beer and wine Hx Substance Use: No (Hx marijuana use (remote)) Preferred Language: [place] Communication Ability: Effective Garland Machine Operator Required: No Beliefs That Will Affect Care: None Current Living Situation: Spouse Feels Safe at Home: Yes Assistive Devices: Hearing Aid - Left Physical Exam Constitutional: WD/WN, vitals as above no acute distress and not ill appearing Eyes: PERRL, conjunctivae normal, anicteric sclerae EOM intact bilaterally ENMT: external ear and nose normal, oropharynx normal Ears: no hearing impairment Neck: trachea midline, no thyromegaly Respiratory: normal respiratory effort; no respiratory distress and does not use accessory muscles Cardiovascular: Rate/Rhythm: regular rate and regular rhythm Gastrointestinal (Abdomen): Obese. Soft. Positive right upper quadrant tenderness. No peritonitis Skin: no rashes, warm and dry Psychiatric: Orientation: alert, oriented x 3 and cooperative Results & Data Vital Signs (Past 12 Hours) Vital Signs Temp Pulse Pulse Resp BP BP Pulse Ox 05/22/24 08:00 60 17 138/86 96 05/22/24 06:30 60 18 140/87 96 05/22/24 06:00 60 16 143/92 H 96 05/22/24 05:00 60 16 146/82 H 97 05/22/24 03:44 60 05/22/24 03:00 60 18 133/78 94 05/22/24 01:00 74 18 140/83 97 05/21/24 23:45 64 05/21/24 23:44 67 18 157/81 H 97 05/21/24 23:09 36.5 C 66 172/83 H 97 O2 Del Method 05/22/24 08:00 Room Air 05/22/24 06:30 Room Air 05/22/24 06:00 Room Air 05/22/24 05:00 Room Air 05/22/24 03:44 05/22/24 03:00 Room Air 05/22/24 01:00 Room Air 05/21/24 23:45 05/21/24 23:44 Room Air 05/21/24 23:09 Room Air PG Care Time/CCT Total # of Minutes Spent Total Time Spent with Patient: Total time spent is greater than 50% in coordination of care (as documented) at patient's floor/unit and/or counseling patient: Coding Level of Care Code 24893 INT INP/OBS CARE 3/75MIN Diagnoses Abdominal pain R10.9 Abnormal LFTs R79.89 Pancreatitis K85.90 Diabetes mellitus, type 2 E11.9 Paroxysmal A-fib I48.0 AV node dysfunction I45.89 CAD (coronary artery disease) I25.10 S/P right coronary artery (RCA) stent placement Z95.5 Renal cell carcinoma C64.9 History of nephrectomy, unilateral Z90.5 Obesity due to excess calories with serious comorbidity E66.09
[2024-05-22] MEDS: LORazepam 2 MG/1 ML VIAL IV STA (11:25)
[2024-05-22] MEDS ORDERED: GLUCAGON FOR INJ 1 MG VIAL SQ PRN (12:34)
[2024-05-22] MEDS ORDERED: CARBOHYDRATES FOR HYPOGLYCEMIA PO PRN (12:34)
[2024-05-22] MEDS ORDERED: GLUCOSE 40% GEL 15 GM TUBE PO PRN (12:34)
[2024-05-22] MEDS ORDERED: GLUCOSE 10 TAB/TUBE PO PRN (12:34)
[2024-05-22] MEDS ORDERED: ONDANSETRON INJ 2 MG/ML 2 ML VIAL IV PRN (12:34)
[2024-05-22] MEDS ORDERED: DEXTROSE 50% 50 ML SYRINGE IV PRN (12:34)
[2024-05-22] MEDS ORDERED: MoRPHine SULFATE 4 MG/ML 1 ML CARP\\VIAL IV PRN (12:38)
--- NOTE | 2024-05-22 12:59 | Magnetic Resonance Report ---
MR MRCP CLINICAL HISTORY: abn US/CT, abn LFT's TECHNIQUE: MRCP of the abdomen was obtained with heavily weighted T2 sequences. Maximum intensity pro jections were created. COMPARISON STUDY: CT scan earlier today. FINDINGS: There is motion artifact. There is stable dilatation of the gallbladder and intra and extra hepatic biliary dilatation with common bile duct measuring up to 1.5 cm diameter. There is also mild pancreatic ductal dilatation. No gallstones or common bile duct stone seen. No gross pancreatic head mass seen. IMPRESSION: 1. Biliary dilatation with no common bile duct stone seen. This is suspicious for distal common bile duct stricture or occult tiny pancreatic head or ampullary mass. 2. Otherwise as described. ACT 112: Positive. There are findings on this exam that require communication between the performing entity and the patient following Patient Test Result Information Act ([place] Act 112) guidelines. Electronically signed by: Nathan Hawkins M.D. 05/22/2024 12:58 PM
[2024-05-22] MEDS: INSULIN ASPART PER UNIT CHARGE SC SCH (13:11)
[2024-05-22 13:17] LABS: Basophils # (auto) 0.04 K/uL (0.00-0.20); Basophils % (auto) 0.5 %; Eosinophils # (auto) 0.13 K/uL (0.00-0.50); Eosinophils % (auto) 1.8 %; Hematocrit (blood only) 40.6 % (42.0-52.0); Hemoglobin 13.8 g/dl (14.0-18.0); Immature Granulocytes # (auto) 0.02 K/uL (0.01-0.20); Immature Granulocytes % (auto) 0.3 %; Lymphocytes # (auto) 1.68 K/uL (1.20-3.40); Lymphocytes % (auto) 22.8 %; Mean Corpuscular Hemoglobin 31.2 pg (25.0-34.0); Mean Corpuscular Volume 91.6 fL (80.0-100.0); Mean Platelet Volume 9.4 fL (9.4-12.4); Monocytes # (auto) 0.87 K/uL (0.11-0.59); Monocytes % (auto) 11.8 %; Neutrophils # (auto) 4.62 K/uL (1.40-6.50); Neutrophils % (auto) 62.8 %; Platelet Count 230 K/uL (130-400); RDW Coefficient of Variation 13.3 % (11.5-14.5); RDW Standard Deviation 44.8 fL (36.4-46.3); Red Blood Count 4.43 M/uL (4.70-6.10); White Blood Count 7.36 K/ul (4.8-10.8)
--- NOTE | 2024-05-22 13:19 | Gastrointestinal Consultation ---
Date of Consultation May 22, 2024 Assessment & Plan (1) Abnormal finding on imagin63 year old male w/ history of ectopic atrial tachycardia s/p ablation in 2006, atrial flutter s/p ablation in 2010 and 2012,paroxysmal atrial fibrillation, history of Mobitz type I AV conduction disease s/p pacemaker, mitral valve disease s/p mitral valve repair, CAD s/p CABG; DVT and PE, HTN, hyperlipidemia, dermatofibroma, right nephrectomy in 2003 for renal cancer. GI asked to evaluate for abnormal imaging. MRCP w/ concerning for distal common bile duct stricture or occult tiny pancreatic head or ampullary mass. There are elevated transaminases but normal Tbili w/ mild lipase elevation. He would benefit from EUS +/- ERCP evaluation. Unfortunately we do not have biliary services available. Recommend transfer for biliary evaluation. Supervising Physician Co-Signing Physician Notes I personally saw and examined the patient. I have reviewed the chart and agree with the documentation provided by the CHARGE AIDE including discussion about the assessment, treatment and plan. 63 year old male w/ history of ectopic atrial tachycardia s/p ablation in 2006, atrial flutter s/p ablation in 2010 and 2012,paroxysmal atrial fibrillation, history of Mobitz type I AV conduction disease s/p pacemaker, mitral valve disease s/p mitral valve repair, CAD s/p CABG; DVT and PE, HTN, hyperlipidemia, dermatofibroma, right nephrectomy in 2003 for renal cancer. GI asked to evaluate for abnormal imaging. MRCP w/ concerning for distal common bile duct stricture or occult tiny pancreatic head or ampullary mass. There are elevated transaminases but normal Tbili w/ mild lipase elevation. He would benefit from EUS +/- ERCP evaluation. Recommend transfer for biliary evaluation. Patient needs an ERCP plus or minus an EUS. Unfortunately we will have to get him transferred to get this done. History of Present Illness [facility] Requesting Physician: Palomo Carr MD Attending Physician: Palomo Carr MD History of Present Illness 63 year old male w/ history of ectopic atrial tachycardia s/p ablation in 2006, atrial flutter s/p ablation in 2010 and 2012,paroxysmal atrial fibrillation, history of Mobitz type I AV conduction disease s/p pacemaker, mitral valve disease s/p mitral valve repair, CAD s/p CABG; DVT and PE, HTN, hyperlipidemia, dermatofibroma, right nephrectomy in 2003 for renal cancer. GI asked to evaluate for abnormal imaging. MRCP 2024: Biliary dilatation with no common bile duct stone seen. This is suspicious for distal common bile duct stricture or occult tiny pancreatic head or ampullary mass. Allergies Allergy/AdvReac Type Severity Reaction Status Date / Time No Known Allergies Allergy Verified 01/24/23 12:00 Home Medications Medication Instructions Recorded Confirmed Type ezetimibe 10 mg tablet (Zetia) 10 mg PO HS 06/19/19 05/22/24 History furosemide 20 mg tablet (Lasix) 20 mg PO QAM 06/19/19 05/22/24 History losartan 25 mg tablet (Cozaar) 25 mg PO HS 06/19/19 05/22/24 History magnesium oxide 400 mg PO BID 06/19/19 05/22/24 History metoprolol tartrate 25 mg tablet 25 mg PO BID 06/19/19 05/22/24 History gxkxuzwupmmm-dnjggknf-uuabvo 1 tab PO QAM 06/19/19 05/22/24 History tablet (Multivitamin 50 Plus tablet) nitroglycerin 0.4 mg sublingual 0.4 mg sublingual UD PRN Chest Pain 06/19/19 05/22/24 History tablet (Nitrostat) omega 6-dov-ouh-fish oil 1,000 mg 1 cap PO BID 06/19/19 05/22/24 History (120 mg-180 mg) capsule (Fish Oil) rosuvastatin 40 mg tablet (Crestor) 40 mg PO HS 08/31/19 05/22/24 History diltiazem HCl 120 mg 120 mg PO QAM 08/18/20 05/22/24 History tablet,extended release 24 hr isosorbide mononitrate 60 mg 60 mg PO QAM 08/18/20 05/22/24 History tablet,extended release 24 hr albuterol sulfate 90 mcg/actuation 2 puff inhalation UD PRN Shortness 03/15/22 05/22/24 History aerosol inhaler Of Breath duloxetine 30 mg capsule,delayed 30 mg PO BID 03/15/22 05/22/24 History release tizanidine 4 mg tablet 4 mg PO TID PRN MUSCLE SPASMS 03/15/22 05/22/24 History urea 20 % topical cream 1 applic topical UD PRN Dry Skin 03/15/22 05/22/24 History apixaban 5 mg tablet (Eliquis) 5 mg PO BID 03/22/22 05/22/24 History aspirin 81 mg capsule 81 mg PO DAILY 12/25/22 05/22/24 History metformin 500 mg tablet 500 mg PO BID 12/25/22 05/22/24 History omeprazole 1 tab PO UD 12/25/22 05/22/24 History tocilizumab 162 mg/0.9 mL 162 mg subcut Q7D 12/25/22 05/22/24 History subcutaneous pen injector (Actemra ACTPen) Patient History Medical History (Updated 05/22/24 @ 13:24 by MOODY Ambriz) Mitral valve disease CABG x1 + mitral valve repair and annuloplasty (2001) Vasculitis Giant cell vasculitis, 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 COPD (chronic obstructive pulmonary disease) Numbness of right anterior thigh R/t back issues Chronic back pain + feet neuropathy Hearing loss in left ear History of DVT of lower extremity DVT > PE (2006) History of COVID-19 2019- loss of taste/smell, felt achiness, fever, low pulse ox, cough, not hospitalized > no further issues Surgical History (Updated 01/01/23 @ 10:11 by Dnaielle Centeno) Hx of bilateral cataract extraction Hx of detached retina repair 11/20/2022 (2 tears repaired) History of colonoscopy Status post correction of deviated nasal septum History of surgical procedure on eye proper using laser left History of cardioversion Several, most recent 5+ years ago History of cardiac radiofrequency ablation x4- 2020, 2012, 2010, 2007 Family History Daughter Family history of diabetes mellitus Uncle Family history of esophageal cancer Other Family history non-contributory No family history of adverse response to anesthesia Social History Smoking Status: Former smoker Tobacco Type: Cigars Cigarettes Per Day: occasional cigar use when golfing; Second Hand Exposure: No; Do You Dip or Chew Tobacco: No; Hx Alcohol Use: Yes Alcohol type: wine Hx Substance Use: No Preferred Language: [place] Communication Ability: Effective Paper Cup Machine Operator Required: No Beliefs That Will Affect Care: None Current Living Situation: Spouse Feels Safe at Home: Yes Safety Concerns: Feels Safe At This Time Assistive Devices: Glasses Assistive Devices Comment: left bilateral hearing aides at home Results & Data Vital Signs (Past 12 Hours) Vital Signs Temp Pulse Pulse Resp BP Pulse Ox O2 Del Method 05/22/24 13:00 Room Air, CPAP 05/22/24 12:47 97.7 F 60 20 126/78 93 Room Air 05/22/24 10:00 60 17 139/86 91 Room Air 05/22/24 08:00 60 17 138/86 96 Room Air 05/22/24 06:30 60 18 140/87 96 Room Air 05/22/24 06:00 60 16 143/92 H 96 Room Air 05/22/24 05:00 60 16 146/82 H 97 Room Air 05/22/24 03:44 60 05/22/24 03:00 60 18 133/78 94 Room Air PG Care Time/CCT Total # of Minutes Spent Total Time Spent with Patient: Total time spent is greater than 50% in coordination of care (as documented) at patient's floor/unit and/or counseling patient: Coding Level of Care Code None Diagnoses Abnormal finding on imaging R93.89
[2024-05-22 13:37] LABS: Albumin Globulin Ratio 1.2 (0.9-2); Albumin Level 3.8 gm/dl (3.4-5.0); BUN Creatinine Ratio 16.9 (10-20); Bilirubin,Total 0.8 mg/dl (0.2-1.0); Calcium 8.6 mg/dl (8.6-10.3); Creatinine Clr Calc Pharmacy 124.1 ml/min; Globulin 3.1 gm/dl (2.5-4.0); Potassium 4.4 mmol/L (3.5-5.1); Total Protein 6.9 gm/dl (6.0-8.3)
--- NOTE | 2024-05-22 14:07 | Communication Note ---
Date of Service: May 22, 2024 Patient underwent MRCP with results showing biliary dilatation with no common bile duct stone seen. This is suspicious for distal common bile duct stricture or occult tiny pancreatic head or ampullary mass. Common bile duct measuring 1.5cm. There is no evidence of cholecystitis, gallstones, or common bile duct stones at this time. Consulted GI for their opinion who recommend transfer out for EUS/ERCP evaluation. Agree with this plan. Hospitalist have been informed. Please call with any questions/concerns.
[2024-05-22] MEDS: PIPERACILLIN/TAZOBACTAM 4.5 GM/100 ML BAG IV SCH (14:15)
--- NOTE | 2024-05-22 14:33 | Electrocardiogram Report ---
Test Reason : Blood Pressure : */* mmHG Vent. Rate : 61 BPM Atrial Rate : 61 BPM P-R Int : 348 ms QRS Dur : 166 ms QT Int : 462 ms P-R-T Axes : 90 53 106 degrees QTcB Int : 465 ms AV dual-paced rhythm with prolonged AV conduction Abnormal ECG When compared with ECG of 17-Mar-2022 04:48, Vent. rate has decreased by 11 bpm Confirmed by Drew Ray ([id number]) on 05/22/2024 2:33:25 PM Referred By: REFERRED SELF Confirmed By: Drew Ray
[2024-05-22] MEDS: LACTATED RINGER'S 1,000 ML IV SCH (15:30)
[2024-05-22] MEDS: ACETAMINOPHEN 325 MG TAB PO PRN (18:32)
--- NOTE | 2024-05-22 18:40 | History & Physical Report ---
Date of Service May 22, 2024 Assessment & Plan (1) Dilation of biliary tract: Plan: -MRCP suggestive of biliary stricture vs. mass -given the onset of symptoms, concern for possible abscess vs. expanding mass -discussed results with patient and at length -spent significant time with discussion regarding transfer and discussion with other teams Plan: -GI and gen surg consults, appreciate recs -accepted for transfer to [facility] for ERCP and EUS on Saturday, transfer on Saturday -oxycodone 5mg for severe pain, morphine 3mg IV for breakthrough pain -NS to finish tonight, regular diet for now, NPO after midnight Saturday night -hold eliquis for now -continue zosyn for now given unknown etiology (2) Abnormal LFTs: Plan: -see above (3) Paroxysmal A-fib: Plan: -hold eliquis -continue metoprolol, imdur, lasix, dilt (4) CAD (coronary artery disease): Plan: -s/p CABG -continue statin, hold aspirin starting tomorrow night (5) Hx of mitral valve repair: Plan: -noted (6) Pacemaker: Plan: -noted (7) Renal cell carcinoma: Plan: -s/p nephrectomy Plan Feeding/fluids: regular Analgesia: oxy/morphine Sedation: na Thromboprophylaxis: SCD Head up position: na Ulcer prophylaxis: protonix Glycemic control: na Spontaneous breathing trial: na Bowel care: start prn miralax Indwelling catheter removal: na Deescalation of antibiotics: continue zosyn I spent a total of 75 minutes in direct patient care, including [id number] time with the patient and/or family, reviewing medical records, ordering and reviewing diagnostic tests, and coordinating care with other healthcare providers. This time includes: history taking, physical examination, medical decision making, counseling, ECG interpretation, imaging interpretation, lab interpretation, orders, and education, excluding time spent in the performance of separately billed services. Admission and Anticipated Discharge Date Admission Date: May 22, 2024 History of Present Illness Primary Care Provider: Rachel Garcia MD 64 yo male with medical history significant for CAD status post CABG/stent, hx of RCC s/p resection), hx of prinzmetal angina atrial flutter ,status post ablation in 2010 and 2012; history of paroxysmal atrial fibrillation, status post pulmonary vein isolation procedure in November 2019; history of Mobitz type I AV conduction disease, status post pacemaker, mitral regurgitation status post repair, history of PE/DVT/MTHFR mutation as per records, RCCA right sp surgery, hypertension, hyperlipidemia, prediabetes, past tobacco abuse who presents for some RUQ pain and abnormal LFTs. Has noticed that for the past week some vague RUQ. He does endorse some vague abdominal pain for the past few weeks. He states he did not have any other associated symptoms. He went to his PCP who ordered blood work and noted an elevated alk phos, and repeated the labs and they were getting worse. He then came in for further evaluation as the pain was getting worse. In the ED, noted to have elevated LFTs, CTimaging revealed biliary dilitation without stone, gen surg consulted recommended MRCP, MRCP revealed stricture vs. mass, admitted to medicine. Discussed MRCP findings with patient, including possibility of stricture vs. malignancy. Discussed GI recommendation for transfer for ERCP and further workup. They were appropriately shocked but appreciative of the update. Denies tobacco use, significant alcohol use, has who is next of kin, full code at this time. Allergies Allergy/AdvReac Type Severity Reaction Status Date / Time No Known Allergies Allergy Verified 01/24/23 12:00 Home Medications Medication Instructions Recorded Confirmed Type ezetimibe 10 mg tablet (Zetia) 10 mg PO HS 06/19/19 05/22/24 History furosemide 20 mg tablet (Lasix) 20 mg PO QAM 06/19/19 05/22/24 History losartan 25 mg tablet (Cozaar) 25 mg PO HS 06/19/19 05/22/24 History magnesium oxide 400 mg PO BID 06/19/19 05/22/24 History metoprolol tartrate 25 mg tablet 25 mg PO BID 06/19/19 05/22/24 History elnrmsiazlhb-mmjgnvxu-witxve 1 tab PO QAM 06/19/19 05/22/24 History tablet (Multivitamin 50 Plus tablet) nitroglycerin 0.4 mg sublingual 0.4 mg sublingual UD PRN Chest Pain 06/19/19 05/22/24 History tablet (Nitrostat) omega 4-jpu-exj-fish oil 1,000 mg 1 cap PO BID 06/19/19 05/22/24 History (120 mg-180 mg) capsule (Fish Oil) rosuvastatin 40 mg tablet (Crestor) 40 mg PO HS 08/31/19 05/22/24 History diltiazem HCl 120 mg 120 mg PO QAM 08/18/20 05/22/24 History tablet,extended release 24 hr isosorbide mononitrate 60 mg 60 mg PO QAM 08/18/20 05/22/24 History tablet,extended release 24 hr albuterol sulfate 90 mcg/actuation 2 puff inhalation UD PRN Shortness 03/15/22 05/22/24 History aerosol inhaler Of Breath duloxetine 30 mg capsule,delayed 30 mg PO BID 03/15/22 05/22/24 History release tizanidine 4 mg tablet 4 mg PO TID PRN MUSCLE SPASMS 03/15/22 05/22/24 History urea 20 % topical cream 1 applic topical UD PRN Dry Skin 03/15/22 05/22/24 History apixaban 5 mg tablet (Eliquis) 5 mg PO BID 03/22/22 05/22/24 History aspirin 81 mg capsule 81 mg PO DAILY 12/25/22 05/22/24 History metformin 500 mg tablet 500 mg PO BID 12/25/22 05/22/24 History omeprazole 1 tab PO UD 12/25/22 05/22/24 History tocilizumab 162 mg/0.9 mL 162 mg subcut Q7D 12/25/22 05/22/24 History subcutaneous pen injector (Actemra ACTPen) Past Med/Surg History Problem List (Updated 05/22/24 @ 18:47 by Palomo Carr MD) Dilation of biliary tract Abnormal finding on imaging Obesity due to excess calories with serious comorbidity Pancreatitis Abnormal LFTs (Acute) Constipation (Acute) Abdominal pain (Acute) Colles' fracture of left radius, subsequent encounter for closed fracture with malunion Diabetes mellitus, type 2 Prinzmetal angina (Chronic) DVT (deep venous thrombosis) (Chronic) Chest pain Encounter for pre-operative examination Bilateral pneumonia (Acute) Hypoxia (Acute) Sepsis Acute pain of right lower extremity Vasculitis AV node dysfunction (Chronic) Paroxysmal A-fib (Chronic) Taking Eliquis CAD (coronary artery disease) (Chronic) CABG x1 + MVR (2001) RCA stent "for occluded graft from CABG" (01/2002) Unstable angina (Acute) Hx of cardiac cath (Chronic) 01/2002- stent x1 05/2014- no stents S/P right coronary artery (RCA) stent placement (Chronic) "for occluded graft from CABG"- 01/2002 Hx of mitral valve repair (Chronic) Mitral valve repair and annuloplasty ([facility]) S/P CABG x 1 (Chronic) 2001 Pacemaker (Chronic) [employer], last checked in 10/[address] Luna MTHFR mutation (Chronic) Per records, patient unsure Pulmonary embolism (Chronic) DVT > PE (2006) History of nephrectomy, unilateral (Chronic) right d/t cancer (2001) Renal cell carcinoma (Chronic) Right > surgery Atrial flutter (Chronic) s/p ablation 2010, [address] 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 COPD (chronic obstructive pulmonary disease) Numbness of right anterior thigh R/t back issues Chronic back pain + feet neuropathy Hearing loss in left ear History of DVT of lower extremity DVT > PE (2006) History of COVID-2019- loss of taste/smell, felt achiness, fever, low pulse ox, cough, not hospitalized > no further issues Surgical History Hx of bilateral cataract extraction Hx of detached retina repair 11/20/2022 (2 tears repaired) History of colonoscopy Status post correction of deviated nasal septum History of surgical procedure on eye proper using laser left History of cardioversion Several, most recent 5+ years ago History of cardiac radiofrequency ablation x4- 2019, 2012, 2010, 2006 Family History Daughter Family history of diabetes mellitus Uncle Family history of esophageal cancer Other Family history non-contributory No family history of adverse response to anesthesia Social History Smoking Status: Former smoker Tobacco Type: Cigars Cigarettes Per Day: occasional cigar use when golfing; Second Hand Exposure: No; Do You Dip or Chew Tobacco: No; Hx Alcohol Use: Yes Alcohol type: wine Hx Substance Use: No Preferred Language: Dominican Communication Ability: Effective Crisis Worker Required: No Beliefs That Will Affect Care: None Current Living Situation: Spouse Feels Safe at Home: Yes Safety Concerns: Feels Safe At This Time Assistive Devices: Glasses Assistive Devices Comment: left bilateral hearing aides at home Review of Systems Review of Systems: CONSTITUTIONAL: Patient denies fevers, chills, sweats and weight changes. EYES: Patient denies any visual symptoms. EARS, NOSE, AND THROAT: No difficulties with hearing. No symptoms of rhinitis or sore throat. CARDIOVASCULAR: Patient denies chest pains, palpitations, orthopnea and paroxysmal nocturnal dyspnea. RESPIRATORY: No dyspnea on exertion, no wheezing or cough. GI: RUQ pain, vague diffuse abdominal pain : No urinary hesitancy or dribbling. No nocturia or urinary frequency. No abnormal urethral discharge. MUSCULOSKELETAL: No myalgias or arthralgias. NEUROLOGIC: No chronic headaches, no seizures. Patient denies numbness, tingling or weakness. PSYCHIATRIC: Patient denies problems with mood disturbance. No problems with anxiety. ENDOCRINE: No excessive urination or excessive thirst. DERMATOLOGIC: Patient denies any rashes or skin changes. Physical Exam Physical Exam: Gen: A&O 3 NAD HEENT: NCAT, EOMI, not icteric. External ears normal. No rhinorrhea. Moist mucous membranes. Neck: Supple, full range of motion, no observable masses, No meningeal sign. Lungs: No Respiratory distress. CV: RRR, no edema. Abdomen: tenderness to palpation in RUQ, MUQ, and RMQ, diffuse discomfort to palpation, no rebound tenderness MSK: No joint swelling, no redness. Skin: No rashes, petechiae, lesions. Normal color per patient. Neuro: Normal Gait, Grossly intact. Psych: Appropriate for situation. Results & Data Results & Data Vital Signs (Past 12 Hours) Vital Signs Temp Pulse Pulse Resp BP Pulse Ox O2 Del Method 05/22/24 17:02 60 05/22/24 16:22 36.5 C 60 18 132/83 94 Room Air 05/22/24 14:55 Room Air 05/22/24 14:39 62 05/22/24 13:00 Room Air, CPAP 05/22/24 12:47 36.5 C 60 20 126/78 93 Room Air 05/22/24 10:00 60 17 139/86 91 Room Air 05/22/24 08:00 60 17 138/86 96 Room Air Laboratory Results - personally reviewed, elevated alk phos and AST ALT suggestive of biliary obstruction Diagnostic Findings - personally reviewed, MRCP suggestive of biliary stricture versus mass Code Status & VTE Plan Code Status full code VTE Prophylaxis Plan VTE Prophylaxis will be ordered: Yes (4) CAD (coronary artery disease) Coronary Disease-Associated Artery/Lesion type: bypass graft, autologous artery Associated angina: without angina Qualified Code(s): I25.810 - Atherosclerosis of coronary artery bypass graft(s) without angina pectoris (7) Renal cell carcinoma Laterality: right Qualified Code(s): C64.1 - Malignant neoplasm of right kidney, except renal pelvis
[2024-05-22] MEDS ORDERED: oxyCODONE HCL IR 5 MG TAB (IMMEDIATE RELEASE) PO PRN (18:43)
[2024-05-22] MEDS: ROSUVASTATIN CALCIUM 20 MG TAB PO SCH (20:12)
[2024-05-22] MEDS: LOSARTAN POTASSIUM 25 MG TAB PO SCH (20:14)
[2024-05-22] MEDS: DULoxetine HCL 30 MG CAP PO SCH (20:14)
[2024-05-22] MEDS: METOPROLOL TARTRATE 25 MG TAB PO SCH (20:14)
[2024-05-22] MEDS ORDERED: BACLOFEN 10 MG TAB PO PRN (22:01)
[2024-05-23] MEDS: POLYETHYLENE (MIRALAX) 17 GM PACK PO PRN (05:40)
[2024-05-23 06:45] LABS: Hemoglobin 13.1 g/dl (14.0-18.0); Mean Corpuscular Hemoglobin 31.2 pg (25.0-34.0); Mean Corpuscular Hgb Conc 33.6 g/dL (32.0-36.0); Mean Corpuscular Volume 92.9 fL (80.0-100.0); Mean Platelet Volume 9.7 fL (9.4-12.4); Platelet Count 214 K/uL (130-400); RDW Coefficient of Variation 13.2 % (11.5-14.5); RDW Standard Deviation 45.1 fL (36.4-46.3); White Blood Count 7.81 K/ul (4.8-10.8)
[2024-05-23 07:07] LABS: BUN Creatinine Ratio 13.6 (10-20); Calcium 8.6 mg/dl (8.6-10.3); Creatinine Clr Calc Pharmacy 93.7 ml/min
[2024-05-23] MEDS: PANTOprazole 40 MG TAB PO SCH (08:02)
[2024-05-23] MEDS: dilTIAZem HCL 120 MG CAPCR PO SCH (08:02)
[2024-05-23] MEDS: ISOSORBIDE MONO EXTENDED REL 60 MG TABCR PO SCH (08:02)
[2024-05-23] MEDS: ASPIRIN 81 MG ECTAB PO SCH (08:02)
[2024-05-23] MEDS: FUROSEMIDE 20 MG TAB PO SCH (13:14)
--- NOTE | 2024-05-23 13:44 | Hospitalist Progress Note ---
Date of Service May 23, 2024 Assessment & Plan (1) Dilation of biliary tract: Plan: -MRCP suggestive of biliary stricture vs. mass -given the onset of symptoms, concern for possible abscess vs. expanding mass -discussed results with patient and at length -spent significant time with discussion regarding transfer and discussion with other teams Plan: -GI and gen surg consults, appreciate recs -accepted for transfer to [facility] for ERCP and EUS on Saturday, transfer on Saturday -oxycodone 5mg for severe pain, morphine 3mg IV for breakthrough pain -regular diet for now, NPO after midnight Saturday night -hold eliquis for now -continue zosyn for now given unknown etiology (2) Abnormal LFTs: Plan: -see above (3) Paroxysmal A-fib: Plan: -hold eliquis -continue metoprolol, imdur, lasix, dilt (4) CAD (coronary artery disease): Plan: -s/p CABG -continue statin, hold aspirin starting tonight in prep of EGD (holding given may need stenting vs. other small procedure in bile duct) (5) Hx of mitral valve repair: Plan: -noted (6) Pacemaker: Plan: -noted -restart lasix today (7) Renal cell carcinoma: Plan: -s/p nephrectomy Plan Feeding/fluids: regular Analgesia: oxy/morphine Sedation: na Thromboprophylaxis: SCD Head up position: na Ulcer prophylaxis: protonix Glycemic control: na Spontaneous breathing trial: na Bowel care: start prn miralax Indwelling catheter removal: na Deescalation of antibiotics: continue zosyn I spent a total of 40 minutes in direct patient care, including [id number] time with the patient and/or family, reviewing medical records, ordering and reviewing diagnostic tests, and coordinating care with other healthcare providers. This time includes: history taking, physical examination, medical decision making, counseling, ECG interpretation, imaging interpretation, lab interpretation, orders, and education, excluding time spent in the performance of separately billed services. Admission and Anticipated Discharge Date Admission Date: May 22, 2024 Subjective Patient seen and examined at bedside. Patient is doing well today, no concerns. Abdominal pain is much improved. States he would like to continue his home Lasix. Review of Systems Review of Systems: CONSTITUTIONAL: Patient denies fevers, chills, sweats and weight changes. EYES: Patient denies any visual symptoms. EARS, NOSE, AND THROAT: No difficulties with hearing. No symptoms of rhinitis or sore throat. CARDIOVASCULAR: Patient denies chest pains, palpitations, orthopnea and paroxysmal nocturnal dyspnea. RESPIRATORY: No dyspnea on exertion, no wheezing or cough. GI: RUQ pain, vague diffuse abdominal pain, much improved : No urinary hesitancy or dribbling. No nocturia or urinary frequency. No abnormal urethral discharge. MUSCULOSKELETAL: No myalgias or arthralgias. NEUROLOGIC: No chronic headaches, no seizures. Patient denies numbness, tingling or weakness. PSYCHIATRIC: Patient denies problems with mood disturbance. No problems with anxiety. ENDOCRINE: No excessive urination or excessive thirst. DERMATOLOGIC: Patient denies any rashes or skin changes. Physical Exam Physical Exam: Gen: A&O 3 NAD HEENT: NCAT, EOMI, not icteric. External ears normal. No rhinorrhea. Moist mucous membranes. Neck: Supple, full range of motion, no observable masses, No meningeal sign. Lungs: No Respiratory distress. CV: RRR, no edema. Abdomen: tenderness to palpation in RUQ, MUQ, and RMQ, diffuse discomfort to palpation, no rebound tenderness, improved from prior MSK: No joint swelling, no redness. Skin: No rashes, petechiae, lesions. Normal color per patient. Neuro: Normal Gait, Grossly intact. Psych: Appropriate for situation. Results & Data Results & Data Vital Signs (Past 12 Hours) Vital Signs Temp Pulse Pulse Resp BP Pulse Ox O2 Del Method 05/23/24 11:41 36.5 C 65 16 124/73 97 Room Air 05/23/24 09:09 60 05/23/24 07:51 36.4 C L 60 16 144/90 H 97 Room Air 05/23/24 07:24 Room Air 05/23/24 03:54 36.5 C 60 18 135/77 95 Room Air Laboratory Results - Personally reviewed, creatinine and hemoglobin at baseline, improved LFTs Medications Administered Acetaminophen (Acetaminophen 325 Mg Tab) 650 mg PO Q4H PRN PRN Reason: Moderate Pain (Scale 4, 5, 6) Stop: 06/21/24 12:33 Last Admin: 05/22/24 18:32 Dose: 650 mg Documented By: LUANNE Aspirin (Aspirin 81 Mg Ectab) 81 mg PO DAILY [facility] Stop: 06/22/24 08:59 Last Admin: 05/23/24 08:02 Dose: 81 mg Documented By: DANIEL Diltiazem HCl (Diltiazem Hcl 120 Mg Capcr) 120 mg PO QAM [facility] Stop: 06/22/24 08:59 Last Admin: 05/23/24 08:02 Dose: 120 mg Documented By: DANIEL Duloxetine HCl (Duloxetine Hcl 30 Mg Cap) 30 mg PO BID [facility] Stop: 06/21/24 20:59 Last Admin: 05/23/24 08:02 Dose: 30 mg Documented By: Admin: 05/22/24 20:14 Dose: 30 mg Documented By: DELGADO Furosemide (Furosemide 20 Mg Tab) 20 mg PO QAM [facility] Stop: 06/22/24 12:14 Last Admin: 05/23/24 13:14 Dose: 20 mg Documented By: DANIEL Piperacillin Sod/Tazobactam Sod (Zosyn) 4.5 gm in 100 mls @ 25 mls/hr IV Q8H [facility]; Protocol Stop: 06/01/24 12:59 Last Admin: 05/23/24 13:16 Dose: 25 mls/hr Documented By: Infusion: 05/23/24 09:35 Dose: Infused Documented By: Admin: 05/23/24 05:32 Dose: 25 mls/hr Documented By: Infusion: 05/23/24 00:14 Dose: Infused Documented By: Admin: 05/22/24 20:14 Dose: 25 mls/hr Documented By: Infusion: 05/22/24 19:36 Dose: Infused Documented By: Admin: 05/22/24 14:15 Dose: 25 mls/hr Documented By: LUANNE Insulin Aspart (Insulin Aspart Per Unit Charge) 0 units SC ACHS [facility] Stop: 06/21/24 12:33 Last Admin: 05/23/24 11:04 Dose: Not Given Documented By: Admin: 05/23/24 08:55 Dose: Not Given Documented By: Admin: 05/22/24 20:13 Dose: Not Given Documented By: Admin: 05/22/24 17:09 Dose: Not Given Documented By: Admin: 05/22/24 13:11 Dose: Not Given Documented By: LUANNE Isosorbide Mononitrate (Isosorbide Caroline Extended Rel 60 Mg Tabcr) 60 mg PO QAM [facility] Stop: 06/22/24 08:59 Last Admin: 05/23/24 08:02 Dose: 60 mg Documented By: DANIEL Losartan Potassium (Losartan Potassium 25 Mg Tab) 25 mg PO HS [facility] Stop: 06/21/24 20:59 Last Admin: 05/22/24 20:14 Dose: 25 mg Documented By: DELGADO Metoprolol Tartrate (Metoprolol Tartrate 25 Mg Tab) 25 mg PO BID [facility] Stop: 06/21/24 20:59 Last Admin: 05/23/24 08:02 Dose: 25 mg Documented By: Admin: 05/22/24 20:14 Dose: 25 mg Documented By: DELGADO Pantoprazole Sodium (Pantoprazole 40 Mg Tab) 40 mg PO DAILY [facility] Stop: 06/22/24 08:59 Last Admin: 05/23/24 08:02 Dose: 40 mg Documented By: DANIEL Polyethylene Glycol (Polyethylene (Miralax) 17 Gm Pack) 17 gm PO DAILY PRN PRN Reason: Constipation Stop: 06/21/24 18:48 Last Admin: 05/23/24 05:40 Dose: 17 gm Documented By: DELGADO Rosuvastatin Calcium (Rosuvastatin Calcium 20 Mg Tab) 40 mg PO [facility] Stop: 06/21/24 20:59 Last Admin: 05/22/24 20:12 Dose: Not Given Documented By: DELGADO (4) CAD (coronary artery disease) Coronary Disease-Associated Artery/Lesion type: bypass graft, autologous artery Associated angina: without angina Qualified Code(s): I25.810 - Ather osclerosis of coronary artery bypass graft(s) without angina pectoris (7) Renal cell carcinoma Laterality: right Qualified Code(s): C64.1 - Malignant neoplasm of right kidney, except renal pelvis
[2024-05-23] MEDS: MoRPHine SULFATE 4 MG/ML 1 ML CARP\\VIAL IV PRN (15:33)
[2024-05-23] MEDS ORDERED: LEVALBUTEROL 1.25 MG/3 ML NEB NEB PRN (22:02)
[2024-05-24 06:30] LABS: Hematocrit (blood only) 38.9 % (42.0-52.0); Hemoglobin 12.9 g/dl (14.0-18.0); Mean Corpuscular Hgb Conc 33.2 g/dL (32.0-36.0); Mean Corpuscular Volume 93.5 fL (80.0-100.0); Mean Platelet Volume 9.7 fL (9.4-12.4); Platelet Count 205 K/uL (130-400); RDW Coefficient of Variation 13.4 % (11.5-14.5); RDW Standard Deviation 45.6 fL (36.4-46.3); Red Blood Count 4.16 M/uL (4.70-6.10); White Blood Count 8.16 K/ul (4.8-10.8)
[2024-05-24 06:57] LABS: BUN Creatinine Ratio 14.9 (10-20); Calcium 8.9 mg/dl (8.6-10.3)
[2024-05-24 15:41] VITALS: RESP 18
--- NOTE | 2024-05-24 17:24 | Discharge Summary ---
Discharge Summary Date of Service May 24, 2024 Principal Dx & Hospital Course #1 = Principal Diagnosis (1) Dilation of biliary tract: -MRCP suggestive of biliary stricture vs. mass -given the onset of symptoms, concern for possible abscess vs. expanding mass -discussed results with patient and at length -spent significant time with discussion regarding transfer and discussion with other teams Plan: -GI and gen surg consults, appreciate recs -accepted for transfer to [facility] for ERCP and EUS on Saturday, transfer on Saturday -oxycodone 5mg for severe pain, morphine 3mg IV for breakthrough pain -regular diet for now, NPO after midnight Saturday night -hold eliquis for now -continue zosyn for now given unknown etiology (2) Abnormal LFTs: -see above (3) Paroxysmal A-fib: -hold eliquis -continue metoprolol, imdur, lasix, dilt (4) CAD (coronary artery disease): -s/p CABG -continue statin, hold aspirin iin prep of EGD (holding given may need stenting vs. other small procedure in bile duct) (5) Hx of mitral valve repair: -noted (6) Pacemaker: -noted -restart lasix today (7) Renal cell carcinoma: -s/p nephrectomy Notes For Next Care Provider 64 yo male with medical history significant for CAD status post CABG/stent, hx of RCC s/p resection), hx of prinzmetal angina atrial flutter ,status post ablation in 2010 and 2012; history of paroxysmal atrial fibrillation, status post pulmonary vein isolation procedure in November 2019; history of Mobitz type I AV conduction disease, status post pacemaker, mitral regurgitation status post repair, history of PE/DVT/MTHFR mutation as per records, RCCA right sp surgery, hypertension, hyperlipidemia, prediabetes, past tobacco abuse who presents for some RUQ pain and abnormal LFTs. in the ED, noted to have biliary duct dilation, MRCP ordered, found to have concern for biliary adhesions versus other mass. GI and general surgery had been consulted, recommended transferring patient for ERCP and EUS. Patient accepted to [facility] with bed on 05/24/2024 patient is medically stable for discharge. Medication Changes From Visit -pain medications Admission HPI Per Admitting Provider 64 yo male with medical history significant for CAD status post CABG/stent, hx of RCC s/p resection), hx of prinzmetal angina atrial flutter ,status post ablation in 2010 and 2012; history of paroxysmal atrial fibrillation, status post pulmonary vein isolation procedure in November 2019; history of Mobitz type I AV conduction disease, status post pacemaker, mitral regurgitation status post repair, history of PE/DVT/MTHFR mutation as per records, RCCA right sp surgery, hypertension, hyperlipidemia, prediabetes, past tobacco abuse who presents for some RUQ pain and abnormal LFTs. Has noticed that for the past week some vague RUQ. He does endorse some vague abdominal pain for the past few weeks. He states he did not have any other associated symptoms. He went to his PCP who ordered blood work and noted an elevated alk phos, and repeated the labs and they were getting worse. He then came in for further evaluation as the pain was getting worse. In the ED, noted to have elevated LFTs, CTimaging revealed biliary dilitation without stone, gen surg consulted recommended MRCP, MRCP revealed stricture vs. mass, admitted to medicine. Discussed MRCP findings with patient, including possibility of stricture vs. malignancy. Discussed GI recommendation for transfer for ERCP and further workup. They were appropriately shocked but appreciative of the update. Denies tobacco use, significant alcohol use, has who is next of kin, full code at this time. Discharge Exam Gen: A&O 3 NAD HEENT: NCAT, EOMI, not icteric. External ears normal. No rhinorrhea. Moist mucous membranes. Neck: Supple, full range of motion, no observable masses, No meningeal sign. Lungs: No Respiratory distress. CV: RRR, no edema. Abdomen: tenderness to palpation in RUQ, MUQ, and RMQ, diffuse discomfort to palpation, no rebound tenderness, improved from prior MSK: No joint swelling, no redness. Skin: No rashes, petechiae, lesions. Normal color per patient. Neuro: Normal Gait, Grossly intact. Psych: Appropriate for situation. Updated Medication List Medication Instructions Recorded Confirmed Type ezetimibe 10 mg tablet (Zetia) 10 mg PO HS 06/19/19 05/22/24 History furosemide 20 mg tablet (Lasix) 20 mg PO QAM 06/19/19 05/22/24 History losartan 25 mg tablet (Cozaar) 25 mg PO HS 06/19/19 05/22/24 History magnesium oxide 400 mg PO BID 06/19/19 05/22/24 History metoprolol tartrate 25 mg tablet 25 mg PO BID 06/19/19 05/22/24 History [id number]-[id number] 1 tab PO QAM 06/19/19 05/22/24 History tablet (Multivitamin 50 Plus tablet) nitroglycerin 0.4 mg sublingual 0.4 mg sublingual UD PRN Chest Pain 06/19/19 05/22/24 History tablet (Nitrostat) omega 4-ygz-hdi-fish oil 1,000 mg 1 cap PO BID 06/19/19 05/22/24 History (120 mg-180 mg) capsule (Fish Oil) rosuvastatin 40 mg tablet (Crestor) 40 mg PO HS 08/31/19 05/22/24 History diltiazem HCl 120 mg 120 mg PO QAM 08/18/20 05/22/24 History tablet,extended release 24 hr isosorbide mononitrate 60 mg 60 mg PO QAM 08/18/20 05/22/24 History tablet,extended release 24 hr albuterol sulfate 90 mcg/actuation 2 puff inhalation UD PRN Shortness 03/15/22 05/22/24 History aerosol inhaler Of Breath duloxetine 30 mg capsule,delayed 30 mg PO BID 03/15/22 05/22/24 History release tizanidine 4 mg tablet 4 mg PO TID PRN MUSCLE SPASMS 03/15/22 05/22/24 History urea 20 % topical cream 1 applic topical UD PRN Dry Skin 03/15/22 05/22/24 History apixaban 5 mg tablet (Eliquis) 5 mg PO BID 03/22/22 05/22/24 History aspirin 81 mg capsule 81 mg PO DAILY 12/25/22 05/22/24 History metformin 500 mg tablet 500 mg PO BID 12/25/22 05/22/24 History omeprazole 1 tab PO UD 12/25/22 05/22/24 History tocilizumab 162 mg/0.9 mL 162 mg subcut Q7D 12/25/22 05/22/24 History subcutaneous pen injector (Actemra ACTPen) baclofen 10 mg tablet 10 mg PO HS PRN Restless Leg(S) 05/22/24 05/22/24 History Hospital Stay Data Consultations 05/22/24 08:42 ED Decision to Admit Stat 05/22/24 08:47 Consult General Surgery Stat 05/22/24 12:34 Consult General Surgery Routine 05/22/24 13:06 Consult Gastroenterology Routine Diagnostic Imagining Performed 05/22/24 01:40 CT abd pelvis IV con only Stat 05/22/24 04:37 MR MRCP Stat Pending Results Patient Have Any Pending Studies at Discharge: Yes Discharge Instructions Given to Patient (Per Discharging Provider) 1. Patient is transferring to [facility] for ERCP/EUS that cannot be done at [facility]. Total Time Total Time Spent Total Time Spent (In Minutes): I spent a total of 35 minutes in direct patient care, including [id number]-[id number] time with the patient and/or family, reviewing medical records, ordering and reviewing diagnostic tests, and coordinating care with other healthcare providers. This time includes: history taking, physical examination, medical decision making, counseling, ECG interpretation, imaging interpretation, lab interpretation, orders, and education, excluding time spent in the performance of separately billed services.
[2024-05-25 07:00] VITALS: BP 125/77; PULSE 60; TEMP 97.5; O2SAT 95
[2024-05-26 12:05] LABS: Estimated Average Glucose 117 mg/dl; Hemoglobin A1C 5.7 % (4.5-5.6)
== END 2024-05-25 08:14 | disposition short-term general hospital (02) | DRG 446 ==
LOC: ED 23:01 → 2N 05-22 09:54